=== PATIENT | female | born 1955 | race Caucasian/White ===

== ENCOUNTER → 2017-11-23 09:08 | Outpatient (CLI) | payer OTHER, SELFPAY ==
--- NOTE | 2017-11-23 09:18 | DI.REPORT_ITS ---
SYMPTOM/DIAGNOSIS: EVAL BILATERAL KNEES OA BILATERAL KNEES: Multiple views. In the left knee there is moderate narrowing of the medial femoral tibial joint space. Periarticular spurring is seen involving all 3 joint compartments particularly the patella femoral joint. There does appear to be marked narrowing of the patella femoral joint. In the right knee there is moderate narrowing of the medial femoral tibial joint space with flattening of the articular surfaces. Periarticular spurring is seen involving all three joint compartments particularly the patella femoral joint. There also appears to be marked narrowing of the patella femoral joint. Vascular clips are seen in the soft tissues in the medial right leg. IMPRESSION: Severe degenerative changes of the knees bilaterally.
== END ==
PROVIDERS: PCP Nurse Practitioner Adult Health; Visit Provider Student in an Organized Health Care Education/Training Program
DX: M25.561 Pain in right knee (principal); M17.0 Bilateral primary osteoarthritis of knee; M25.562 Pain in left knee
CPT/HCPCS: 73562

== ENCOUNTER 2017-12-03 15:30 | Outpatient (RCR) | payer OTHER, SELFPAY ==
--- NOTE | 2017-12-03 09:20 | IE_ITS ---
Date: 12/03/17 Referring: Gladis Diaz NP M.D. Diagnosis: (B) replacement program, OA P.T. Diagnosis: Difficulty walking, difficulty changing positions. SUBJECTIVE: History of Present Illness: Pt describes herself as an employee of [employer]. 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 She received a knee scope for repair and debridement around early 1999 , but her knee has been essentially painful ever since. She has been managed with injections, and she finally had a recent xray which showed pretty severe degenerative changes. Her (R) side is more limiting than her (L), but apparently on xray she review there is significant arthritis in both knees. She has been scheduled for a total knee replacement on January 29, and has been advised to start a pre operative strengthening program, as well mobility program to prepare for surgery. Pain Ratin/10 Prior Level of Function: Unrestricted Current Level of Function: Walking limitations, standing limitations. Previous Treatment: Nothing Social: She lives in [place], with her . Comorbidities: Hx of gastric bypass surgery and depression. Medications: Wellbutrin Quality of Life: __X__ Good Standardized Measures: Knee outcome survey for ADL with a score of 53%. OBJECTIVE: Posture: In standing pt demonstrates a slight inability to terminally extend the knee and a mild WBOS. Gait: Slightly antalgic with a mild reduction of stance time through the (R), although she has a significant limitation in knee flexion during the swing phase of gait. Palpation: Tender to palpation through the patella femoral joint lines, and tibial femoral joint lines (B). Popliteal fossa (B) is also tender with deep palpation. ROM: Measurements of the hip WFL and painfree. Measurements of the knee -7* of extension through the (R) and 105 * flexion of the (L) side, -5* of full extension and 105* of flexion. She is painful at end limits on both knees. Strength: Hip flexion 4+/5 (B) Quads 5/5 with mild pain upon resistance (B) Hamstring 5/5 Dorsiflexion 5/5 Plantar flexion 5/5 Pt unable to complete a 90* sit to stand. She completes a 60* sit to stand but also uses UE support. Neuro: Pt intact to light touch and sensation through LE dermatomes, motor control appears intact through associated myotomes and pt demonstrates appropriate proprioception and kinesthetic awareness. Special Tests: Lachmans varus, valgus, posterior draw testing negative for any ligamentous compromise. SLR with notable quad lag with about 10-15* of flexion through the SLR. Treatment: Tx today included the initial evaluation and assessment of functional abilities as well training in a formal exercise program. Pt demonstrated verbal acknowledgement and technique demonstration. IE: [id number] Direct treatment time: 50 minutes Total treatment time: 50 minutes ASSESSMENT: Patient is a 62-year-old female with a hx of good physical health, referred for PT services with the diagnosis of OA of (B) knees with pre operative focus. Patient presents with clinical signs and symptoms consistent with this dx, as demonstrated by the following impairment level findings: limited ROM in the knee both with extension and with flexion, mild pain upon resistance with quadricep function, difficulty with sit to stand and gait abnormalities. Impairments are contributing to the following functional limitations: Limited ambulation endurance and difficulty with long periods of standing. Patient is assessed as: __X__ Low 38268 ____ Moderate 54850 ____ High 70334 complexity, based on the following: History: High BMI, gastroc bypass and arthritis Examination: Limitations in knee ROM, limitations in strength with pain upon resistance, gait abnormalities Presentation: X Stable Decision-Making: X Low complexity ADL score on the knee outcome survey of 53%. __X__ Patient requires skilled PT intervention to remediate the above functional limitations to return to: __X__ Premorbid level of function Prognosis:__X__ Good as evidence suggests improvement of functional abilities with compliance to a detailed HEP tailored to her dx and following through with PT intervention. STG: __2__ weeks. 1. Pt will be (I) in HEP both verbally and ideal technique demonstration. LTG: __6__ weeks. 1. Pt will be able to walk up to 1/2 mile with minimal gait deviations. 2. Pt able to stand up to 30 minutes for better functional capacity through work activity. PLAN: Patient to be seen 1 x per week, for 6 weeks, adjusting frequency of visits per patient symptoms and response to treatment. Treatment to include: X Manual therapy - [id number]: Utilized for enhancing muscle extensibility and improving joint arthrokinematics. X Ultrasound/ Estim available for pain modulation as necessary. X Therapeutic exercise - [id number] tactile cues, verbal education and advanced movement correctives for establishing muscle symmetry and pre operative conditioning through the knees. Pt will be monitored for compliance to HEP and pt status will be updated accordingly. Plan may be modified as symptoms dictate. Thank you for this referral. Please do not hesitate to contact me with any questions or concerns regarding this patient's plan of care.
--- NOTE | 2017-12-12 11:17 | NT_ITS ---
12/10/17 Patient canc her appt due to work conflict. However, did not rescheduled. She feels she can do the exercises that were given to her and if she runs into a problem she will give us a call. BOBBY/micaela
--- NOTE | 2017-12-12 13:52 | NT_ITS ---
NON TREATMENT NOTE: 12/12/17 Patient called in to cancel today's appointment.
== END 2017-12-21 23:59 | disposition home or self-care (01) ==
LOC: PT 15:30
PROVIDERS: PCP Nurse Practitioner Adult Health; Referring Provider Nurse Practitioner Adult Health; Visit Provider Nurse Practitioner Adult Health
DX: M25.561 Pain in right knee (principal); M25.562 Pain in left knee
CPT/HCPCS: 97161

== ENCOUNTER → 2017-12-10 11:55 | Outpatient (REF) | payer OTHER, SELFPAY ==
--- NOTE | 2017-12-10 10:15 | PAPFT_PTH ---
PATIENT: Charli Anderson LOC: [facility] U#:[id number] AGE/SX: 69/F ROOM: RE12/10/[address]: Gladis Patricio APRN : 1955 BED: DIS: SPEC #: [id number] RECD: 12/10/17 12:41 STATUS: HANNAH REAlexander #: [id number] NICOLAS: 12/10/17 10:[address]: Gladis Patricio DEPT: [facility] Cytology RECD BY: Nae Whitney Tissues: 1 - CX/ENDOCX FOR PAP SMEARS Procedures: PAP THIN PREP/UVM Screening HPV DNA PROBE Comments: [id number]
== END ==
LOC: LBN 11:55
PROVIDERS: PCP Nurse Practitioner Adult Health; Visit Provider Nurse Practitioner Adult Health
DX: Z12.4 Encounter for screening for malignant neoplasm of cervix (principal); Z11.51 Encounter for screening for human papillomavirus (HPV)
CPT/HCPCS: 88142; 87624

== ENCOUNTER 2018-01-23 12:57 | Outpatient (CLI) | payer OTHER, SELFPAY ==
--- NOTE | 2018-01-23 13:49 | PDOC.CMPRO ---
- If Service Date Differs Date of service: 01/23/18 Time of Service: 13:49 Care Management Progress Note Request by DSU for CM to meet with Daniel prior to her bilateral total knee procedure on 01/29. 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 Daniel reports that she loves to ski at [place] and has not been able to in several years due to her chronic pain. She looks forward to getting back on the hill and increasing her activity. She has two steps up into her home. Daniel reports that she has a walker and is borrowing a shower chair. Patient discussed concerns regarding her toilet and CM and Daniel talked about raised toilet seats and acquiring one. CM addressed Daniel's concerns and questions regarding home PT following discharge. Daniel reports that Rupert is supportive and will be able to assist her in her recovery. CM will meet with Daniel following surgery and offer support to patient, family, and care team regarding discharge planning and disposition.
--- NOTE | 2018-01-23 14:10 | CMPROGNOTE_ITS ---
- If Service Date Differs Date of service: 01/23/18 Time of Service: 13:49 Care Management Progress Note Request by DSU for CM to meet with Daniel prior to her bilateral total knee procedure on 01/29. 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 Daniel reports that she loves to ski at [email or web address] and has not been able to in several years due to her chronic pain. She looks forward to getting back on the hill and increasing her activity. She has two steps up into her home. Daniel reports that she has a walker and is borrowing a shower chair. Patient discussed concerns regarding her toilet and CM and Daniel talked about raised toilet seats and acquiring one. CM addressed Daniel's concerns and questions regarding home PT following discharge. Daniel reports that Rupert is supportive and will be able to assist her in her recovery. CM will meet with Daniel following surgery and offer support to patient, family, and care team regarding discharge planning and disposition.
[2018-01-23 15:49] LABS: HCT 40.7 % (36.0-46.0); HGB 13.5 g/dL (12.0-15.5); Mean Corp. HGB Concentration 33.2 g/dL (32.0-36.0); Mean Corpuscular Hemoglobin 29.3 pg (27.0-33.0); Mean Corpuscular Volume 88.3 fL (80-95); Mean Platelet Volume 9.7 fL (8.0-11.0); Platelet Count 174 x1000/uL (130-400); RBC 4.61 m/cumm (4.00-5.20); RBC Distribution Width 13.5 % (11.7-14.6); White Blood Cell Count 7.24 k/cumm (4.4-10.8)
--- NOTE | 2018-01-23 16:10 | W.PREOPHP ---
Assessment and Plan (1) Primary osteoarthritis of both knees: Current visit: Yes Status: Chronic Plan: Bilateral total knee replacements. Details of surgery were discussed with patient as well as risks, and pertinent anatomy. All questions were answered. History of Present Illness Narrative: Charli is a 62-year-old female who was complaining of bilateral knee pain. She states his pain has been present for many years, she thinks since about 2010 or 2011. Most of the pain is on the medial aspect of her knees. She has trouble with prolonged weightbearing, ambulation, and going up and down stairs. She states downstairs and down an incline is worse than up. She has trouble with squatting and kneeling as well. She has had previous x-rays which do show significant arthritis primarily in the medial aspect of her knees. They also showed significant decrease in joint space in the medial compartment as well as bone spurring throughout. She has tried bouts of physical therapy and injections including Synvisc and steroid injections. She has had no relief from these conservative measures, in fact the knee pain continues to get worse. At this point Dr. Zafar suggests total knee replacements. After long discussion with Charli, she and Dr. Zafar decided to move forward with bilateral total knee replacements done in sequence on the same surgical day. Pertinent Surgical Information Patient denies history of hypertension, CVA, [place], angina, asthma, COPD, renal or liver disorders, hepatitis, bleeding disorders, diabetes, immune or thyroid disorders. No complications from anesthesia. Review of Systems Review of Systems All systems reviewed & are unremarkable except as noted in HPI and below Constitutional Denies fever(s) ENT Denies dizziness and Denies sore throat Cardiovascular Denies chest pain, Denies palpitations and Denies dyspnea Respiratory Denies dyspnea Gastrointestinal Denies abdominal pain, Denies melena, Denies hematochezia, Denies diarrhea, Denies nausea and Denies vomiting Genitourinary Denies hematuria and Denies dysuria Neurologic Denies dizziness Endocrine Denies palpitations PFSH Family History Mother Diabetes Hypertension Hyperlipidemia Coronary heart disease CVA (cerebral vascular accident) Breast cancer Father COPD (chronic obstructive pulmonary disease) Bladder cancer Coronary heart disease Hypertension Hyperlipidemia Sister Obesity Brother Obesity Medical History Anxiety and depression (Chronic) Social History adopted: No foster care: No household members: spouse number of children: 1 number of grandchildren: 0 current occupational status: employed current occupation: [employer] pets and animals: No Hx Recent Travel: No Smoking/Tobacco Use Status: Never alcohol intake: current alcohol intake frequency: holidays/special occasions only substance use type: does not use fay/quaker: Quaker seatbelt use: always drive intox or ride w/ intox local 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 working smoke detector in home: Yes fire extinguisher in home: Yes carbon monox detector in home: Yes firearms in home: Yes firearms unloaded and locked: No Surgical History S/P tubal ligation (Chronic) H/O vein stripping (Acute ~08/21/00) S/P tonsillectomy and adenoidectomy (Acute) H/O colonoscopy (Chronic 10/02/07) Status post gastroplasty (Chronic 12/19/13) Arthroplasty of knee (07/28/11) Cholecystectomy (03/07/13) Meds Home Medications Medication Instructions Recorded Confirmed Type aspirin [Aspir-81] 81 mg PO DAILY tab 09/09/12 01/23/18 History multivitamin [Daily Vitamin] 1 ea PO DAILY 12/24/13 01/23/18 History calcium citrate-vitamin D3 2 ea PO BID 12/30/13 01/23/18 History [Calcitrate-Vitamin D] Vitamin B 12 500 mg PO DAILY #1 02/09/14 01/23/18 History nystatin 1 aby TOPICAL BID PRN #60 g 07/10/16 01/23/18 History rrkanoff-agay-[id number]-C-katarzyna-bosw 2 ea PO DAILY 07/22/16 01/23/18 History [Osteo Bi-Flex Caplet] omega-3 fatty acids-fish oil [Fish 2,000 ea PO DAILY 10/30/16 01/23/18 History Oil 1,000 Mg Capsule] cholecalciferol (vitamin D3) 1,000 unit PO DAILY 06/25/17 01/23/18 History clotrimazole 1 aby TOPICAL BID #45 g 08/14/17 01/23/18 Rx naltrexone-bupropion [Contrave Er 1 ea PO as directed #1 tab-cap 12/10/17 01/23/18 Rx 8-90 Mg Tablet] Allergies Allergy/AdvReac Type Severity Reaction Status Date / Time codeine AdvReac Intermediate Hyper, Unverified 01/23/18 14:12 kept awake all night hydrocodone bitartrate AdvReac Intermediate Hyper,antsy Unverified 01/23/18 14:12 [From Vicodin] Exam HENME Head: normocephalic and atraumatic General nose exam: no nasal discharge Throat: uvula midline and no uvular edema Other: soft palate rises symmetrically, no erythema Eyes Conjunctivae: conjunctivae normal Sclera: sclerae normal Pupils: PERRL Resp Effort & Inspection: normal respiratory effort Auscultation: clear to auscultation bilaterally and no wheezes Cardio Rate: regular rate Rhythm: regular rhythm Heart Sounds: S1 normal, S2 normal and no murmurs Results Labs : 01/23/18 15:35 01/23/18 15:35 Laboratory Results - last 24 hr 01/23/18 15:35 WBC 7.24 RBC 4.61 Hgb 13.5 Hct 40.7 MCV 88.3 MCH 29.3 MCHC 33.2 RDW 13.5 Plt Count 174 MPV 9.7
--- NOTE | 2018-01-23 16:16 | HPE_ITS ---
Assessment and Plan (1) Primary osteoarthritis of both knees: Current visit: Yes Status: Chronic Plan: Bilateral total knee replacements. Details of surgery were discussed with patient as well as risks, and pertinent anatomy. All questions were answered. History of Present Illness Narrative: Charli is a 62-year-old female who was complaining of bilateral knee pain. She states his pain has been present for many years, she thinks since about 2010 or 2011. Most of the pain is on the medial aspect of her knees. She has trouble with prolonged weightbearing, ambulation, and going up and down stairs. She states downstairs and down an incline is worse than up. She has trouble with squatting and kneeling as well. She has had previous x-rays which do show significant arthritis primarily in the medial aspect of her knees. They also showed significant decrease in joint space in the medial compartment as well as bone spurring throughout. She has tried bouts of physical therapy and injections including Synvisc and steroid injections. She has had no relief from these conservative measures, in fact the knee pain continues to get worse. At this point Dr. Zafar suggests total knee replacements. After long discussion with Charli, she and Dr. Zafar decided to move forward with bilateral total knee replacements done in sequence on the same surgical day. Pertinent Surgical Information Patient denies history of hypertension, CVA, [place], angina, asthma, COPD, renal or liver disorders, hepatitis, bleeding disorders, diabetes, immune or thyroid disorders. No complications from anesthesia. Review of Systems Review of Systems All systems reviewed & are unremarkable except as noted in HPI and below Constitutional Denies fever(s) ENT Denies dizziness and Denies sore throat Cardiovascular Denies chest pain, Denies palpitations and Denies dyspnea Respiratory Denies dyspnea Gastrointestinal Denies abdominal pain, Denies melena, Denies hematochezia, Denies diarrhea, Denies nausea and Denies vomiting Genitourinary Denies hematuria and Denies dysuria Neurologic Denies dizziness Endocrine Denies palpitations PFSH Family History Mother Diabetes Hypertension Hyperlipidemia Coronary heart disease CVA (cerebral vascular accident) Breast cancer Father COPD (chronic obstructive pulmonary disease) Bladder cancer Coronary heart disease Hypertension Hyperlipidemia Sister Obesity Brother Obesity Medical History Anxiety and depression (Chronic) Social History adopted: No foster care: No household members: spouse number of children: 1 number of grandchildren: 0 current occupational status: employed current occupation: [employer] pets and animals: No Hx Recent Travel: No Smoking/Tobacco Use Status: Never alcohol intake: current alcohol intake frequency: holidays/special occasions only substance use type: does not use fay/latter-day: Roman Catholic seatbelt use: always drive intox or ride w/ intox chassis driver: No working smoke detector in home: Yes fire extinguisher in home: Yes carbon monox detector in home: Yes firearms in home: Yes firearms unloaded and locked: No Surgical History S/P tubal ligation (Chronic) H/O vein stripping (Acute ~08/21/00) S/P tonsillectomy and adenoidectomy (Acute) H/O colonoscopy (Chronic 10/02/07) Status post gastroplasty (Chronic 12/19/13) Arthroplasty of knee (07/28/11) Cholecystectomy (03/07/13) Meds Home Medications Medication Instructions Recorded Confirmed Type aspirin [Aspir-81] 81 mg PO DAILY tab 09/09/12 01/23/18 History multivitamin [Daily Vitamin] 1 ea PO DAILY 12/24/13 01/23/18 History calcium citrate-vitamin D3 2 ea PO BID 12/30/13 01/23/18 History [Calcitrate-Vitamin D] Vitamin B 12 500 mg PO DAILY #1 02/09/14 01/23/18 History nystatin 1 aby TOPICAL BID PRN #60 g 07/10/16 01/23/18 History pkcvolle-thwr-tbp6-C-katarzyna-bosw 2 ea PO DAILY 07/22/16 01/23/18 History [Osteo Bi-Flex Caplet] omega-3 fatty acids-fish oil [Fish 2,000 ea PO DAILY 10/30/16 01/23/18 History Oil 1,000 Mg Capsule] cholecalciferol (vitamin D3) 1,000 unit PO DAILY 06/25/17 01/23/18 History clotrimazole 1 aby TOPICAL BID #45 g 08/14/17 01/23/18 Rx naltrexone-bupropion [Contrave Er 1 ea PO as directed #1 tab-cap 12/10/17 Rx 8-90 Mg Tablet] Allergies Allergy/AdvReac Type Severity Reaction Status Date / Time codeine AdvReac Intermediate Hyper, Unverified 01/23/18 14:12 kept awake all night hydrocodone bitartrate AdvReac Intermediate Hyper,antsy Unverified 01/23/18 14: 12 [From Vicodin] Exam HENHI Head: normocephalic and atraumatic General nose exam: no nasal discharge Throat: uvula midline and no uvular edema Other: soft palate rises symmetrically, no erythema Eyes Conjunctivae: conjunctivae normal Sclera: sclerae normal Pupils: PERRL Resp Effort & Inspection: normal respiratory effort Auscultation: clear to auscultation bilaterally and no wheezes Cardio Rate: regular rate Rhythm: regular rhythm Heart Sounds: S1 normal, S2 normal and no murmurs Results Labs : 01/23/18 15:35 01/23/18 15:35 Laboratory Results - last 24 hr 01/23/18 15:35 WBC 7.24 RBC 4.61 Hgb 13.5 Hct 40.7 MCV 88.3 MCH 29.3 MCHC 33.2 RDW 13.5 Plt Count 174 MPV 9.7
[2018-01-23 16:18] LABS: BUN 23 mg/dL (7-18); CREATININE 0.77 mg/dL (0.55-1.02); Calcium 8.6 mg/dL (8.5-10.1); Chloride 104 mmol/L (98-107); Glucose 128 mg/dL (70-100); Potassium 4.4 mmol/L (3.5-5.1); Sodium 140 mmol/L (136-145)
== END 2018-01-23 13:17 ==
PROVIDERS: PCP Nurse Practitioner Adult Health; Visit Provider Student in an Organized Health Care Education/Training Program
DX: M17.0 Bilateral primary osteoarthritis of knee (principal); M25.561 Pain in right knee; M25.562 Pain in left knee; Z01.818 Encounter for other preprocedural examination
CPT/HCPCS: 36415; 80048; 85027; 86850; 86900; 86901; NC

== ENCOUNTER 2018-01-23 15:03 | Outpatient (CLI) | payer OTHER, SELFPAY ==
--- NOTE | 2018-01-23 14:48 | DI.RAD_ITS ---
SYMPTOMS/DIAGNOSIS: DJD PRIETO KNEES LEG LENGTH EXAMINATION: Moderately severe degenerative changes are seen in the knees bilaterally. The hips appear well maintained as do the ankles. The right lower extremity measures 92.9 cm. The left lower extremity measures 93.4 cm. Vascular clips are seen in the right lower extremity. IMPRESSION: Bilateral osteoarthritis of the knees.
== END 2018-01-23 15:23 ==
PROVIDERS: PCP Nurse Practitioner Adult Health; Visit Provider Physician Assistant
DX: M17.0 Bilateral primary osteoarthritis of knee (principal); M25.561 Pain in right knee; M25.562 Pain in left knee
CPT/HCPCS: 77073

== ENCOUNTER 2018-01-29 07:36 | Inpatient (IN) | payer OTHER, SELFPAY ==
[2018-01-29] VITALS (18 sets, daily range): BP systolic 74–124; BP diastolic 38–78; PULSE 66–92; RESP 14–18; TEMP 35–36.9; O2SAT 95–99
[2018-01-29] MEDS: Lactated Ringers 1,000 ML 80 ML IV ×3 (06:35→17:11)
[2018-01-29] MEDS: Celecoxib 200 MG CAP 400 MG PO (06:35)
[2018-01-29] MEDS: Gabapentin 300 MG CAP PO ×2 (06:36→21:08)
[2018-01-29] MEDS: oxyCODONE-CR 10 MG TABCR PO (06:36)
[2018-01-29] MEDS: Acetaminophen 500 MG TAB 1000 MG PO ×3 (06:36→21:07)
[2018-01-29] MEDS: Bupivacaine 0.25% Pres-Free 30 ML VIAL 20 ML IJ (07:20)
[2018-01-29] MEDS: Bupivacaine 0.25% Pres-Free 30 ML VIAL 50 ML IJ (11:41)
--- NOTE | 2018-01-29 12:01 | PDOC.CMIN ---
- If Service Date Differs Date of service: 01/29/18 Time of Service: 12:01 Care Management Initial Assess REASON FOR HOSPITALIZATION:: Bilateral knee DJD. PAST MEDICAL HISTORY/PAST SURGICAL HISTORY:: Anxiety, depression, intertrigo, vitamin D deficiency, peripheral venous insufficiency. Surgical hx: arthroscopy of knee (R), colonoscopy, vein stripping, tonsillectomy and adenoidectomy, tubal ligation, gastroplasty, bariatric surgery. PREVIOUS FUNCTIONAL STATUS/SOCIAL/FAMILY SUPPORTS:: Daniel resides in [place] with her , Rupert. There are two steps up to her home. 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 Daniel reports that Rupert is supportive and will assist her in her recovery. CURRENT FUNCTIONAL STATUS:: Daniel is lying in bed following surgery when CM visits this afternoon. She is engaged in conversation, makes good eye contact, and is talkative. Daniel reports that she is sore but not having any significant pain. She is receiving IV antibiotics and fluids. Her cochran catheter is in place and will likely be removed in the morning. ADVANCE DIRECTIVES:: None on file at [facility]. Has patient been provided with information about the portal?: Yes Did the patient sign up for the portal?: No CODE STATUS:: Full Code INSURANCE COVERAGE / FINANCIAL ISSUES:: [employer] CURRENT HOME/COMMUNITY SERVICES/EQUIPMENT:: No current home or community services. Has a FWW and shower chair. PRIMARY CARE PHYSICIAN:: Gladis Patricio. POTENTIAL DISCHARGE NEEDS:: Follow up appointment with PCP and PT/OT(?). PATIENT/FAMILY EDUCATION NEEDS:: Discharge education, any limitations, and follow up plan of care. Ask Me Three discussion. ANTICIPATED BARRIERS TO DISCHARGE:: No anticipated barriers to discharge. TRANSPORTATION:: Daniel will transport via private vehicle with her , Rupert. PLAN:: Charli will discharge home when medically ready per MD. Anticipate patient will discharge with PT/OT services and will follow up with MD. CM will continue to offer support to patient, family, and care team regarding discharge planning and disposition.
[2018-01-29] MEDS: ePHEDrine 50 MG/ML VIAL IVP (12:29)
--- NOTE | 2018-01-29 12:33 | INITIAL_ITS ---
- If Service Date Differs Date of service: 01/29/18 Time of Service: 12:01 Care Management Initial Assess REASON FOR HOSPITALIZATION:: Bilateral knee DJD. PAST MEDICAL HISTORY/PAST SURGICAL HISTORY:: Anxiety, depression, intertrigo, vitamin D deficiency, peripheral venous insufficiency. Surgical hx: arthroscopy of knee (R), colonoscopy, vein stripping, tonsillectomy and adenoidectomy, tubal ligation, gastroplasty, bariatric surgery. PREVIOUS FUNCTIONAL STATUS/SOCIAL/FAMILY SUPPORTS:: Daniel resides in [place] with her , Rupert. There are two steps up to her home. 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 Daniel reports that Rupert is supportive and will assist her in her recovery. CURRENT FUNCTIONAL STATUS:: Daniel is lying in bed following surgery when CM visits this afternoon. She is engaged in conversation, makes good eye contact, and is talkative. Daniel reports that she is sore but not having any significant pain. She is receiving IV antibiotics and fluids. Her cochran catheter is in place and will likely be removed in the morning. ADVANCE DIRECTIVES:: None on file at [employer]. Has patient been provided with information about the portal?: Yes Did the patient sign up for the portal?: No CODE STATUS:: Full Code INSURANCE COVERAGE / FINANCIAL ISSUES:: [employer] CURRENT HOME/COMMUNITY SERVICES/EQUIPMENT:: No current home or community services. Has a FWW and shower chair. PRIMARY CARE PHYSICIAN:: Gladis Patricio. POTENTIAL DISCHARGE NEEDS:: Follow up appointment with PCP and PT/OT(?). PATIENT/FAMILY EDUCATION NEEDS:: Discharge education, any limitations, and follow up plan of care. Ask Me Three discussion. ANTICIPATED BARRIERS TO DISCHARGE:: No anticipated barriers to discharge. TRANSPORTATION:: Daniel will transport via private vehicle with her , Rupert. PLAN:: Charli will discharge home when medically ready per MD. Anticipate patient will discharge with PT/OT services and will follow up with MD. CM will continue to offer support to patient, family, and care team regarding discharge planning and disposition.
--- NOTE | 2018-01-29 14:46 | PT.INIE ---
Date of service: 01/29/18 Time of Service: 14:35 PT Notes Inpatient Physical Therapy Evaluation Date: 01/29/18 Referring Doctor: Ab Zafar PT Orders: PT CONSULT: s/p b/l TKA Precautions: WBAT B LE's Patient Profile/Admitting Diagnosis: Pt is a 62yr old female s/p bilateral total knee arthroplasties by Dr. Zafar 01/29/18 PMHX: venous insufficiency, anxiety, obesity, bariatric surgery, depression, vitamin D deficiency, vein stripping, adenoidectomy, tubal ligation, gastroplasty, cholecystectomy, tonsillectomy, colonoscopy Social History/Home Situation: Lives with spouse in a home, 2 steps no railing to enter, one level inside. Baseline mobility independent gait with no device, independent with ADLS Equipment Owned/DME: borrwoing a FWW Subjective: Pt lying in bed, agreeable to PT consult. in room observing, RN in room monitoring vital signs and starting IV. Objective: General Observation: bilateral cryocuffs to knees, cochran catheter Mental Status: A& O x3 Pain: no c/o pain Bed Mobility/Transfers: Supine-sit: HOB 30 degrees [place] for LE's to edge of bed Sit-stand: minAx1 with FWW, bed elevated. Pt with difficulty getting to standing position due to quad weakness post op Stand-sit: SBA Sit-supine: HOB Flat [place] for LE's Gait: minAx1 with FWW, standing at bedside for 1min. Pt unable to progress gait or transfers to chair due to feelings of being lightheaded, BP 106/76. Pt transferred back to bed after standing. bilateral cryocuff's applied in bed. Therex: Initiated ankle pumps, quad sets, glute sets x 10 reps. Pt has issued home exercise program. Balance: Static Sitting: normal Dynamic Sitting: normal Static Standing: fair Dynamic Standing: poor Special Tests: Mobility Limitations Standardized Measure [facility] AM-PAC 6 clicks Basic Mobility Inpatient Short Form: Raw Score: 16 Standardized Score: 40.78 CMS Score: 54.16% CMS Modifier: CK Informed Consent/Education: Patient instructed in purpose of PT consult and plan of care. Assessment: Pt is a 62yr old female s/p bilateral total knee arthroplasties by Dr. Zafar 10/9/18 in setting of venous insufficiency, anxiety, obesity, bariatric surgery, depression, vitamin D deficiency. Patient presents with the following impairment level findings: weakness bilateral quads, decreased ability to lift legs into/out of bed, increased difficulty getting to standing position due to quad weakness requiring bed to be elevated and one person assist to get to standing, decreased static and dynamic standing balance requiring FWW for stability to prevent falls, decreased gait mobility due to weakness and post operative recovery. Pt will benefit from skilled therapy intervention for strengthening and progressive mobility training. Anticipate return to home setting once goals met. Impairments are contributing to the following functional limitations: AMPAC score CMS Score: 54.16% Patient is assessed as a Moderate [id number] complexity based on the following: History: see above Examination: see above Presentation: evolving Decision Making: AMPAC score CMS Score: 54.16% Goals: Goals X1 week 1. Supine-Sit: independent 2. Sit-Supine independent 3. Sit-Stand supervision with FWW 4. Stand-Sit supervision 5. Bed-Chair SBA with FWW 6. Chair-Bed SBA with FWW 7. Gait SBA with FWW 70ftx2 WBAT B LE 8. Stairs: up/down 2 steps with axillary crutches, WBAT B LE 9. Independent with home exercise program for TKA Plan of Care/Treatment Plan: 1-2x/day, 7 days/week x 1 week. Plan of care has been reviewed with the RN LVN providing the service under Physical Therapy direction. Initiate Physical Therapy intervention for strengthening, bed mobility, transfers, gait, stairs, balance training, use of assistive device. DISCHARGE RECOMMENDATIONS: Home, plans to borrow FWW TREATMENT CODE/TIME: 24 IE 1435 G Codes in the area mobility of walking and moving around: current status [id number] CK; projected status GP [id number]- CK Discharge status (if discharging) GP [id number] CK based on AMPAC score CMS Score: 54.16% Marlene Monteiro PT
--- NOTE | 2018-01-29 15:02 | IN_ITS ---
Date of service: 01/29/18 Time of Service: 14:35 PT Notes Inpatient Physical Therapy Evaluation Date: 01/29/18 Referring Doctor: Ab Zafar PT Orders: PT CONSULT: s/p b/l TKA Precautions: WBAT B LE's Patient Profile/Admitting Diagnosis: Pt is a 62yr old female s/p bilateral total knee arthroplasties by Dr. Zafar 01/29/18 PMHX: venous insufficiency, anxiety, obesity, bariatric surgery, depression, vitamin D deficiency, vein stripping, adenoidectomy, tubal ligation, gastroplasty, cholecystectomy, tonsillectomy, colonoscopy Social History/Home Situation: Lives with spouse in a home, 2 steps no railing to enter, one level inside. Baseline mobility independent gait with no device, independent with ADLS Equipment Owned/DME: borrwoing a FWW Subjective: Pt lying in bed, agreeable to PT consult. in room observing , RN in room monitoring vital signs and starting IV. Objective: General Observation: bilateral cryocuffs to knees, cochran catheter Mental Status: A& O x3 Pain: no c/o pain Bed Mobility/Transfers: Supine-sit: HOB 30 degrees [place] for LE's to edge of bed Sit-stand: minAx1 with FWW, bed elevated. Pt with difficulty getting to standing position due to quad weakness post op Stand-sit: SBA Sit-supine: HOB Flat [place] for LE's Gait: minAx1 with FWW, standing at bedside for 1min. Pt unable to progress gait or transfers to chair due to feelings of being lightheaded, BP 106/76. Pt transferred back to bed after standing. bilateral cryocuff's applied in bed. Therex: Initiated ankle pumps, quad sets, glute sets x 10 reps. Pt has issued home exercise program. Balance: Static Sitting: normal Dynamic Sitting: normal Static Standing: fair Dynamic Standing: poor Special Tests: Mobility Limitations Standardized Measure [facility] AM-PAC 6 clicks Basic Mobility Inpatient Short Form: Raw Score: 16 Standardized Score: 40.78 CMS Score: 54.16% CMS Modifier: CK Informed Consent/Education: Patient instructed in purpose of PT consult and plan of care. Assessment: Pt is a 62yr old female s/p bilateral total knee arthroplasties by Dr. Zafar 10/9/18 in setting of venous insufficiency, anxiety, obesity, bariatric surgery, depression, vitamin D deficiency. Patient presents with the following impairment level findings: weakness bilateral quads, decreased ability to lift legs into/out of bed, increased difficulty getting to standing position due to quad weakness requiring bed to be elevated and one person assist to get to standing, decreased static and dynamic standing balance requiring FWW for stability to prevent falls, decreased gait mobility due to weakness and post operative recovery. Pt will benefit from skilled therapy intervention for strengthening and progressive mobility training. Anticipate return to home setting once goals met. Impairments are contributing to the following functional limitations: AMPAC score CMS Score: 54.16% Patient is assessed as a Moderate [id number] complexity based on the following: History: see above Examination: see above Presentation: evolving Decision Making: AMPAC score CMS Score: 54.16% Goals: Goals X1 week 1. Supine-Sit: independent 2. Sit-Supine independent 3. Sit-Stand supervision with FWW 4. Stand-Sit supervision 5. Bed-Chair SBA with FWW 6. Chair-Bed SBA with FWW 7. Gait SBA with FWW 70ftx2 WBAT B LE 8. Stairs: up/down 2 steps with axillary crutches, WBAT B LE 9. Independent with home exercise program for TKA Plan of Care/Treatment Plan: 1-2x/day, 7 days/week x 1 week. Plan of care has been reviewed with the CASING MIXER providing the service under Physical Therapy direction. Initiate Physical Therapy intervention for strengthening, bed mobility, transfers, gait, stairs, balance training, use of assistive device. DISCHARGE RECOMMENDATIONS: Home, plans to borrow FWW TREATMENT CODE/TIME: 24 IE 1435 G Codes in the area mobility of walking and moving around: current status [id number] CK; projected status GP G8979- CK Discharge status (if discharging) GP [id number] CK based on AMPAC score CMS Score: 54.16% Marlene Monteiro PT
[2018-01-29] MEDS: Lactated Ringers 1,000 ML 1000 ML IV (15:23)
--- NOTE | 2018-01-29 16:25 | NUR.NOTE ---
01/29/18 1342 Pt admitted to room 205 MS from PACU via stretcher. PT alert and oriented x 3. HR regular, LSCTA, POsitive bs x 4. Positive sensation and movement in bilat feet, cap refil less than 3 sec, pale, cool bilat toes. dressing bilat knees CDI. pt rates pain at zero.
[2018-01-29] MEDS: oxyCODONE 5 MG TAB PO ×3 (17:14→23:53)
[2018-01-29] MEDS: Celecoxib 200 MG CAP PO (21:06)
[2018-01-29] MEDS: buPROPion-CR 150 MG TABCR PO (21:07)
[2018-01-30] VITALS (11 sets, daily range): BP systolic 88–127; BP diastolic 56–74; PULSE 70–98; RESP 16–18; TEMP 36.2–37; O2SAT 91–98
[2018-01-30] MEDS: oxyCODONE 5 MG TAB PO ×6 (03:22→21:15)
[2018-01-30] MEDS: Lactated Ringers 1,000 ML 80 ML IV (05:19)
--- NOTE | 2018-01-30 06:58 | W.PM.OP ---
Date of service: 01/29/18 Time of Service: 12:29 Operative Note DATE OF PROCEDURE: 01/29/18 PRE-OP DIAGNOSIS: Bilateral Knee DJD POST-OP DIAGNOSIS: same PROCEDURE: Bilateral Total Knee Replacement SURGEON: Ab Zafar [employer]: Joana Borrero ANESTHESIA: GETA and spinal ESTIMATED BLOOD LOSS: 500 PATHOLOGY: none sent TOURNIQUET TIME: 51 COMPLICATIONS: None Patient was transported to: PACU Patient's condition: stable Implants: LEFT 1. Depuy Attune Posterior Stabilized Femoral Component, Size 6 2. Depuy Attune Fixed Platform Tibial Component, Size 5 3. Depuy Attune 6 x 7 mm fixed, Stabilized Poly 4. Depuy Attune Patellar Component, Size 35 mm RIGHT 1. Depuy Attune Posterior Stabilized Femoral Component, Size 6 2. Depuy Attune Fixed Platform Tibial Component, Size 5 3. Depuy Attune 6 x 8 mm fixed, Stabilized Poly 4. Depuy Attune Patellar Component, Size 35 mm Indications: I have seen Charli in clinic for symptoms of bilateral knee arthritis, confirmed with radiographic findings. Charli has exhausted nonoperative methods and was having significant limitations in daily function and desired better function and less pain. I discussed the technical details of a knee replacement. I explained the risks of the procedure to include, but not limited to, bleeding, infection, pain, stiffness, fracture, damage to nerves and vessels, damage to muscles and tendons, loosening, need for repeat procedure, blood clot and cardiopulmonary demise. Despite these risks, Charli elected to proceed. Findings: There was significant signs of arthritis throughout the knees. All 3 compartments of both knees were involved. There were large osteophytes present. Her anatomy was somewhat interesting with the tibial tubercles quite lateralized compared to the medial tibial plateau. On the right knee, there is attenuation of the MCL but was intact. Procedure Description: Charli was greeted in the preoperative holding area where the correct side was identified and marked. The consent was reviewed with the patient and signed. The history and physical was updated. All questions were answered. Preoperative mediacations were administered: Acetaminophen 1000mg, Celebrex 400mg, Gabapentin 300mg, and Oxycontin 10mg. An adductor canal and iPAQ block was then administered by the anesthesia team in the PACU for both knees. Charli was taken back to the operating room. A spinal anesthestic was attempted. However, it was unsuccessful and therefore a general anesthetic was administered. The patient was placed into the supine position on the operating room table. A nonsterile tourniquet was placed high onto both legs but only used for cementing. Posts were placed for positioning during the procedure. All bony prominences were well padded. Prophylactic antibiotics in the form of cefazolin were administered. 1g of Tranxemic Acid was given intravenously within 30 minutes of incision. Both legs were then prepped with Chloraprep and draped in a standard fashion with impervious stockinette and extremity drape with Iodine impregnated skin protection. A timeout to confirm correct identity, side and site, procedure, allergies, anesthesia, and medical concerns was performed. We started with the left knee. With the knee in some flexion, a midline incision was made overlying the knee. Full thickness skin flaps were raised once the extensor mechanism was encountered. These were raised medially and laterally. Any bleeding was controlled with electrocautery. Once the extensor mechanism was fully exposed, a medial parapatellar arthrotomy was performed in a flexed position. All bleeding from the arthrotomy and the geniculate arteries was coagulated. A medial subperiosteal peel was performed with electrocautery to the midcoronal plane. The fat pad was removed while keeping the patellar tendon protected. The anterior distal femur synovium was removed for later visualization. The ACL and PCL were resected and the anterior horn of the lateral meniscus was transected. The knee was then flexed with the patella everted. Large osteophytes from the tibia were removed. Large osteophytes from the femur were removed. The tibial tubercle seem quite lateral in relationship to the tibial plateau. Using a step drill, and based on preoperative templating, the femoral canal was entered. This was done with a step drill without any difficulty. The intramedullary distal femoral cut guide was inserted, set to a 5 degree valgus cut and 10mm cut thickness. The distal femoral cut guide was then held in position and pinned. With the soft tissues protected, the distal cut was performed. This was passed over a few times to ensure a planar cut. I then turned attention to the tibia. The extramedullary guide was placed onto the leg. The distal aspect was slid medial to adjust for position of center of ankle and stay in line with shaft of the tibia. Approximately 3-5 degrees of posterior slope was kept in the proximal cutting guide. The center of the guide was aligned with the PCL. The stylus was used to assess cut thickness. The medial side, most involved side, was set for a 4mm cut. This was then held in position and pinned into place with 2 additional pins and a cross pin for stability. The medial and lateral collateral ligaments were protected and the cut was performed. With this completed, it was assessed and noted to be of appropriate dimensions. The guide was removed. A spacer block was inserted and the knee was brought into extension. The 6mm spacer block provided full extension, without hyperextension and with stability of both the medial and lateral collateral ligaments was assessed. The pins from the femur and the tibia were then removed. The distal femur was then sized. The anterior stylus was placed onto the lateral ridge of the anterior femur. This indicated a size 6 femur. The external rotation of the guide was adjusted to 5 degrees to match the epicondylar axis, perpendicular to Amite?s line. The 4-in-1 cutting guide was the placed. The posterior medial femur cut was evaluated and appeared of good thickness. The spacer block was inserted underneath the cutting guide and stability was confirmed in 90 degrees of flexion. An mary wing was used to confirm appropriate position of the anterior cut to avoid notching. This cutting guide was ensured to be flush on the cut surface and then pinned into place with headed pins. While protecting the soft tissues, quad tendon, and collateral ligaments, the anterior and posterior cuts were performed with a saw. The central two pins were removed and the posterior and anterior chamfers were cut next. The notch-cutting guide was placed. This was pinned to lateralize the femoral component as much as possible while keeping it flush on the cut surface. This was then pinned into position. A reciprocating saw was used to make the notch cut. A rasp smoothed the cut surfaces. A trial posterior stabilized femoral component was then inserted, impacted down to the cut surfaces, and the lug holes were drilled. A provisional trial tibial component was placed and the knee was brought through range of motion. The polyethylene was trialed until there was good flexion and extension with excellent stability to the medial and lateral collaterals. The patella was tracking without thumbs. The tibial cut surface was fully exposed. The medial and lateral menisci were removed. The tibia was then sized as a 5. The tibia had been previously marked during trialing to correspond to the center of the tibial component to help with rotation. The trial was aligned to this joana, approximately rotated to the medial 1/3rd of the tibial tubercle. The trial was pinned into place. The tibia was prepared with a reamer and a keel punch. The knee was then brought into extension and the patella was measured as 26 mm. Using the patellar clamp and cut guide, this was resected to a flat surface with at least 13mm of thickness remaining. The size 35 mm patella fit the best. This was oriented and then clamped into position. The lugs were drilled. The trial components were removed. The final components, except for the polyethylene were opened on the back table. The posterior capsule and other capsular tissues were then injected with 25 cc of 0.25% bupivacaine. The tourniquet was then inflated to 275mmHg. The knee was thoroughly irrigated with a pulse lavage and dried. On the back table, with the implants opened, the cement was mixed. 2 batches of antibiotic laden cement were prepared with vacuum assistance. After the cement was ready a small amount was placed on to the back side of the tibial component at the keel. A small amount was placed onto the posterior flange of the femur. Cement was manual pressurized and impregnated into the cut surface of the tibia. The tibial component was then inserted into the cut surface and impacted into position. Excess cement was removed and the component was reimpacted. Again, excess cement was removed and our attention was then turned to the femur. The femoral cut surface was once again dried and cement was manually impacted into the cut surface. The femoral component was lined with the lug holes and impacted. Excess cement was removed. It was ensured to be down against the cut surface. The trial polyethylene was then inserted and the leg was brought out into full extension for the duration of the cement curing process, approximately 15min. Cement was lastly manually impacted into the cut surface of the patella and the patellar button was clamped into position and held. During this process attention was turned to the gutters of the knee and for all interfaces for any excess cement. After the cement had finally cured, approximately 15min, the clamp was removed from the patella and the knee was taken through range of motion. A size 7 mm polyethylene component provided the best range of motion and stability with less than 2mm gapping with medial and lateral stress and full extension without significant hyperextension. The patella was tracking with a no-thumbs technique. The trial poly was removed and once again the knee was checked for any loose, excess, or errant cement. The poly component was then inserted and impacted into position after cleaning and drying the tibial tray. The capsule was then reapproximated with a No. 1 Vicryl at multiple locations. The capsule was finally closed with a No. 2 Stratafix, barbed suture. The tourniquet was then released and the arthrotomy appeared watertight without significant bleeding. The second dosing of 1g TXA was started. Deep tissues were then reapproximated with 0 Vicryl and 2-0 Vicryl. The skin was closed with a running 3-0 Monocryl in a subcuticular fashion. This was reinforced with skin glue. We then proceeded with the right knee replacement. With the knee in some flexion, a midline incision was made overlying the knee. Full thickness skin flaps were raised once the extensor mechanism was encountered. These were raised medially and laterally. Any bleeding was controlled with electrocautery. Once the extensor mechanism was fully exposed, a medial parapatellar arthrotomy was performed in a flexed position. All bleeding from the arthrotomy and the geniculate arteries was coagulated. A medial subperiosteal peel was performed with electrocautery to the midcoronal plane. The fat pad was removed while keeping the patellar tendon protected. The anterior distal femur synovium was removed for later visualization. The ACL and PCL were resected and the anterior horn of the lateral meniscus was transected. The knee was then flexed with the patella everted. Large osteophytes from the tibia were removed. Large osteophytes from the femur were removed. The tibial tubercle seem quite lateral in relationship to the tibial plateau. Using a step drill, and based on preoperative templating, the femoral canal was entered. This was done with a step drill without any difficulty. The intramedullary distal femoral cut guide was inserted, set to a 5 degree valgus cut and 10mm cut thickness. The distal femoral cut guide was then held in position and pinned. With the soft tissues protected, the distal cut was performed. This was passed over a few times to ensure a planar cut. I then turned attention to the tibia. The extramedullary guide was placed onto the leg. The distal aspect was slid medial to adjust for position of center of ankle and stay in line with shaft of the tibia. Approximately 3-5 degrees of posterior slope was kept in the proximal cutting guide. The center of the guide was aligned with the PCL. The stylus was used to assess cut thickness. The medial side, most involved side, was set for a 4mm cut. This was then held in position and pinned into place with 2 additional pins and a cross pin for stability. The medial and lateral collateral ligaments were protected and the cut was performed. With this completed, it was assessed and noted to be of appropriate dimensions. The guide was removed. A spacer block was inserted and the knee was brought into extension. The 6mm spacer block provided full extension, without hyperextension and with stability of both the medial and lateral collateral ligaments was assessed. The pins from the femur and the tibia were then removed. The distal femur was then sized. The anterior stylus was placed onto the lateral ridge of the anterior femur. This indicated a size 6 femur. The external rotation of the guide was adjusted to 3 degrees to match the epicondylar axis, perpendicular to Mehdi?s line. The 4-in-1 cutting guide was the placed. The posterior medial femur cut was evaluated and appeared of good thickness. The spacer block was inserted underneath the cutting guide and stability was confirmed in 90 degrees of flexion. An mary wing was used to confirm appropriate position of the anterior cut to avoid notching. This cutting guide was ensured to be flush on the cut surface and then pinned into place with headed pins. While protecting the soft tissues, quad tendon, and collateral ligaments, the anterior and posterior cuts were performed with a saw. The central two pins were removed and the posterior and anterior chamfers were cut next. The notch-cutting guide was placed. This was pinned to lateralize the femoral component as much as possible while keeping it flush on the cut surface. This was then pinned into position. A reciprocating saw was used to make the notch cut. A rasp smoothed the cut surfaces. A trial posterior stabilized femoral component was then inserted, impacted down to the cut surfaces, and the lug holes were drilled. A provisional trial tibial component was placed and the knee was brought through range of motion. The polyethylene was trialed until there was good flexion and extension with excellent stability to the medial and lateral collaterals. The patella was tracking without thumbs. The tibial cut surface was fully exposed. The medial and lateral menisci were removed. The tibia was then sized as a 5. The tibia had been previously marked during trialing to correspond to the center of the tibial component to help with rotation. The trial was aligned to this joana, approximately rotated to the medial 1/3rd of the tibial tubercle. The trial was pinned into place. The tibia was prepared with a reamer and a keel punch. The knee was then brought into extension and the patella was measured as 25 mm. Using the patellar clamp and cut guide, this was resected to a flat surface with at least 13mm of thickness remaining. The size 35 mm patella fit the best. This was oriented and then clamped into position. The lugs were drilled. The trial components were removed. The collateral ligaments were checked as a standard practice and is noted that the MCL was attenuated. It was still intact but was not cordlike but stranded. He was tested in multiple positions and did not appear to be cut nor avulsed off of the tibia. The final components, except for the polyethylene were opened on the back table. Approximately 25 cc of 0.5% bupivacaine was injected into the posterior capsule and surrounding capsular tissues. The tourniquet was then inflated to 275mmHg. The knee was thoroughly irrigated with a pulse lavage and dried. On the back table, with the implants opened, the cement was mixed. 2 batches of antibiotic laden cement were prepared with vacuum assistance. After the cement was ready a small amount was placed on to the back side of the tibial component at the keel. A small amount was placed onto the posterior flange of the femur. Cement was manual pressurized and impregnated into the cut surface of the tibia. The tibial component was then inserted into the cut surface and impacted into position. Excess cement was removed and the component was reimpacted. Again, excess cement was removed and our attention was then turned to the femur. The femoral cut surface was once again dried and cement was manually impacted into the cut surface. The femoral component was lined with the lug holes and impacted. Excess cement was removed. It was ensured to be down against the cut surface. The trial polyethylene was then inserted and the leg was brought out into full extension for the duration of the cement curing process, approximately 15min. Cement was lastly manually impacted into the cut surface of the patella and the patellar button was clamped into position and held. During this process attention was turned to the gutters of the knee and for all interfaces for any excess cement. After the cement had finally cured, approximately 15min, the clamp was removed from the patella and the knee was taken through range of motion. A size 8 mm polyethylene component provided the best range of motion and stability with less than 2mm gapping with medial and lateral stress and full extension without significant hyperextension. The patella was tracking with a no-thumbs technique. The trial poly was removed and once again the knee was checked for any loose, excess, or errant cement. The poly component was then inserted and impacted into position after cleaning and drying the tibial tray. The capsule was then reapproximated with a No. 1 Vicryl at multiple locations. The capsule was finally closed with a No. 2 Stratafix, barbed suture. The tourniquet was then released and the arthrotomy appeared watertight without significant bleeding. Deep tissues were then reapproximated with 0 Vicryl and 2-0 Vicryl. The skin was closed with a running 3-0 Monocryl in a subcuticular fashion. This was reinforced with skin glue. A Mepilex silver dressing was applied along with a [id number] BERTHA wrap. A CryoCuff was applied. Charli was transferred to the hospital bed without difficulty an suffering no apparent complication. Charli has a good prognosis. Physical therapy will start today and without restrictions, weight-bearing as tolerated. Xarelto 10mg will be used for DVT prophylaxis.
[2018-01-30 07:28] LABS: HCT 29.9 % (36.0-46.0); HGB 9.9 g/dL (12.0-15.5); Mean Corp. HGB Concentration 33.1 g/dL (32.0-36.0); Mean Corpuscular Hemoglobin 29.5 pg (27.0-33.0); Mean Platelet Volume 9.9 fL (8.0-11.0); Platelet Count 133 x1000/uL (130-400); RBC 3.36 m/cumm (4.00-5.20); RBC Distribution Width 13.2 % (11.7-14.6); White Blood Cell Count 8.39 k/cumm (4.4-10.8)
[2018-01-30 07:34] LABS: Anion Gap 4.1 mmol/L (3-11); BUN 10 mg/dL (7-18); CO2 30.9 mmol/L (21.0-32.0); CREATININE 0.63 mg/dL (0.55-1.02); Calcium 8.4 mg/dL (8.5-10.1); Chloride 106 mmol/L (98-107); Glucose 117 mg/dL (70-100); Potassium 4.2 mmol/L (3.5-5.1); Sodium 141 mmol/L (136-145)
[2018-01-30] MEDS: Lactated Ringers 1,000 ML 1000 ML IV (08:11)
[2018-01-30] MEDS: Acetaminophen 500 MG TAB 1000 MG PO ×3 (09:04→21:14)
[2018-01-30] MEDS: Rivaroxaban 10 MG TABLET PO (09:05)
[2018-01-30] MEDS: Omega-3 Fatty Acids 1000 MG CAP 2000 MG PO (09:05)
[2018-01-30] MEDS: Celecoxib 200 MG CAP PO ×2 (09:06→21:11)
[2018-01-30] MEDS: Cyanocobalamin 500 MCG TAB PO (09:06)
[2018-01-30] MEDS: buPROPion-CR 150 MG TABCR PO ×2 (09:06→21:11)
[2018-01-30] MEDS: Multivitamin TAB 1 TAB PO (09:07)
[2018-01-30] MEDS: Pantoprazole 40 MG TABCR PO (09:07)
[2018-01-30] MEDS: Dexamethasone 4 MG TAB PO (09:07)
--- NOTE | 2018-01-30 09:16 | PT.INTREAT ---
Date of service: 01/30/18 Time of Service: 07:30 PT Notes Inpatient Physical Therapy Treatment Note Date: 01/30/18 PRECAUTIONS: Fall precautions, WBAT B LE's SUBJECTIVE: Pt lying in bed, agreeable to therapy session and mobilizing to chair for breakfast. Reports her pain is minimal and she has been using the cryocuffs all night. OBJECTIVE: General observation: R UE IV, bilateral cryocuffs PAIN: 3/10 bilateral knees BED MOBILITY/TRANSFERS Supine-sit: HOB 30 degrees, SBA Sit-stand: unable due to lightheadedness Bed-Chair: unable due to lightheadedness Sit-supine: HOB flat, SBA GAIT: unable to due to complaints of light headness/dizziness. THEREX: bilateral ankle pumps, quad sets and glute sets x 20 reps ASSESSMENT: Pt only able to sit at edge of bed today and return to bed, unable to perform standing, transfers to chair or gait due to hypotension (see nursing notes for BP) and reports of sweating and dizziness. RN notified and contacting MD. PLAN: Progress strengthening Progress transfers Progress gait TREATMENT CODE/TIME: 15min TAx1 7:30 Marlene Monteiro PT
--- NOTE | 2018-01-30 09:45 | PDOC.CMPRO ---
- If Service Date Differs Date of service: 01/30/18 Time of Service: 09:45 Care Management Progress Note S/O: Charli is lying in bed eating breakfast when CM visits this morning. Patient is 1 day post-op for bilateral knee DJD. Charli's sister is visiting as well. Patient is engaged in conversation, makes good eye contact, and is talkative. She denies pain at this time. Per nursing report, Charli became diaphoretic, hypotensive and dizzy when attempting to get out of bed. Patient currently receiving IV fluids and I L LR bolus. Charli continues to receive IV antibiotics and IV and PO pain medications. Patient's catheter remains in place at this time. Charli's symptoms have subsided and her BP is WNL. A: 62 year old female admitted following bilateral knee DJD. P: Charli will discharge home when medically ready per MD. Anticipate patient will discharge with home PT/OT (?) and follow up with MD. Charli will transport via private vehicle with her , Rupert. will continue to offer support to patient, family and care team regarding discharge planning and disposition.
[2018-01-30 10:05] LABS: Troponin I < 0.02 ng/mL (0.00-0.06)
--- NOTE | 2018-01-30 13:06 | W.PM.PROGNOT ---
Assessment and Plan (1) Arthroplasty of knee: Charli is a 62-year-old status post bilateral knee arthroplasty, postop day #1. Unfortunately, she had an episode of hypotension this morning. She did have some become any chest pain prior to this event and so a troponin and EKG was performed. These were both negative. Her labs are encouraging. It is likely that she just has a volume related hypotension. This is probably leading to the dizziness. At this point I will plan to recheck hemoglobin. I will asked for the assistance of Dr. Gallardo. It is best just to get this some time at this point. She has no increased work of breathing to suggest a DVT or blood clot. Rivaroxaban was started today. Continue with pain treatment. Continue PT this afternoon. Continue Rodrigues catheter for output management. Subjective Interval history since last seen: Charli reports having some increased pain. She has been receiving pain medications which has helped keep the pain at bay. She is able to ambulate yesterday with minimal discomfort although she was limited in her distance. She has had good urine output. She denies fevers or chills. She has had no chest pain or shortness of breath until an episode this morning. She was going to stand with physical therapy. She denied having significant increase in pain but all of a sudden felt very dizzy and somewhat lightheaded. Her blood pressures checked at that time where she was noted to have some hypotension. She does report about an hour prior to this having some chest discomfort but had no currently. She has not on interview today at this time. EKG was performed this morning which was negative. Troponins were drawn and these were negative as well. Her labs were also drawn this morning which revealed no major abnormalities and a hemoglobin of 9.9. She currently reports discomfort of the knees which has been treated with pain medications. She also finds that if she moves quickly or tries to sit up she has some dizziness. She denies headache. She denies any neck pain but she does have some pain in the low back where the spinal was attempted. She denies numbness or tingling. She denies nausea or vomiting Exam Narrative Exam Narrative: Evaluation of bilateral lower extremities reveals intact sensation to the deep and superficial peroneal nerve and tibial nerves. Both ankles have active dorsiflexion and plantar flexion as well as active extension and flexion of the great toes. She is able straight leg raise both legs. Both are wrapped in dressings which are clean, dry, and intact. She does look to be feeling uncomfortable. She is not diaphoretic. She has good color. She has no increased work of breathing. She is breathing on room air. Objective Objective Clinical Data: Abnormal lab results 01/30/18 01/30/18 Range/Units 07:10 07:10 RBC 3.36 L (4.00-5.20) m/cumm Hgb 9.9 L (12.0-15.5) g/dL Hct 29.9 L (36.0-46.0) % Glucose 117 H (70-100) mg/dL Calcium 8.4 L (8.5-10.1) mg/dL Vital Signs Temperature 36.7 C 01/30/18 03:34 Temperature Source Tympanic 01/30/18 03:34 Pulse 94 H 01/30/18 12:44 Pulse Rhythm Regular 01/30/18 07:50 Respiratory Rate 18 01/30/18 09:42 Respiratory Effort 01/30/18 07:50 Respiratory Depth Normal 01/30/18 07:50 Respiratory Pattern Normal 01/30/18 07:50 Blood Pressure 88/57 L 01/30/18 12:44 Pulse Oximetry 96 01/30/18 03:34 Respiratory End-tidal CO2 36 01/29/18 13:30 Oxygen Delivery Method Room Air 01/30/18 03:34 Oxygen Flow Rate 0 01/30/18 03:34 Pain Level 4 01/30/18 09:47 Comment 01/30/18 12:44 Intake & Output 01/29/18 01/30/18 01/30/18 23:59 11:59 23:59 Intake Total 1952.000 / 8288.679 6310.333 / 1881.333 360 / 360 Output Total 2500 / 2500 1075 / 1075 1800 / 1800 Balance -548.000 / -548.000 806.333 / 806.333 -1440 / -1440 Intake: IV 1712.000 / 4321.780 4454.333 / 1881.333 Oral 240 / 240 360 / 360 Output: Urine 2500 / 2500 1075 / 1075 1800 / 1800 Other: Urine Color Pale Yellow Pale Yellow Yellow Urine Appearance Clear Clear Emesis Description None Laboratory Results WBC 8.39 k/cumm (4.4-10.8) 01/30/18 07:10 RBC 3.36 m/cumm (4.00-5.20) L 01/30/18 07:10 Hgb 9.9 g/dL (12.0-15.5) L 01/30/18 07:10 Hct 29.9 % (36.0-46.0) L 01/30/18 07:10 MCV 89.0 fL (80-95) 01/30/18 07:10 MCH 29.5 pg (27.0-33.0) 01/30/18 07:10 MCHC 33.1 g/dL (32.0-36.0) 01/30/18 07:10 RDW 13.2 % (11.7-14.6) 01/30/18 07:10 Plt Count 133 x1000/uL (130-400) 01/30/18 07:10 MPV 9.9 fL (8.0-11.0) 01/30/18 07:10 Sodium 141 mmol/L (136-145) 01/30/18 07:10 Potassium 4.2 mmol/L (3.5-5.1) 01/30/18 07:10 Chloride 106 mmol/L (98-107) 01/30/18 07:10 Carbon Dioxide 30.9 mmol/L (21.0-32.0) 01/30/18 07:10 Anion Gap 4.1 mmol/L (3-11) 01/30/18 07:10 BUN 10 mg/dL (7-18) 01/30/18 07:10 Creatinine 0.63 mg/dL (0.55-1.02) 01/30/18 07:10 Estimated GFR/1.73 m2 >= 60.00 (mL/min/1.73m2) 01/30/18 07:10 Glucose 117 mg/dL (70-100) H 01/30/18 07:10 Calcium 8.4 mg/dL (8.5-10.1) L 01/30/18 07:10 Troponin I < 0.02 ng/mL (0.00-0.06) 01/30/18 07:10
--- NOTE | 2018-01-30 13:15 | PHARADMIT ---
Addendum entered by Hoang Mansfield III 02/01/18 13:06: Pharmacy Note Subjective Bilateral Knee DJD, post-op day #3. Had blood transfusion yesterday Objective VS-OK pain: 07/31 SCr, Lytes,-OK Plts-120 H&H-8.9/27.5 (post transfusion) No BM yet Assessment Using Oxycodone and APAP for pain control. Plan PT notes patient does not feel reaady for discharge home. Original Note: Admission Pharmacy Clinical Review Code Status Full Code Current Weight Wgt- 105.8 kg Renally Cleared and Narrow Therapeutic Index Meds CrCl~ 76.19 mL/min Meds-OK QTc Value / Action Taken NA BP Control, Fever BP-88/57 Tmax- 36.7C Electrolytes reviewed Na- 141 K+4.2 DVT Prophylaxis Xarelto Opiate Usage / Scheduled Bowel Regimen Ordered Yes Yes Plt/SCr for Heparin / Enoxaparin Plts- 133 SCr- 0.63 INR for Warfarin na H/H stable, WBC/Bands H&H- 9.+/29.9 WBC-8.39 Antibiotic appropriateness Ancef Cultures and Sensitivities none Surgical ABX d/c within 24 hr Yes DM control / Insulin Dosing BG-117 Heart Failure (Check EF%) (BERTHA's, B-Block, Diuretics) none IV to PO Switch No Home Meds Reviewed Yes Home Meds Not Ordere ASA, Osteo-BioFlex, Nystatin, MLotrimin Comments
[2018-01-30] MEDS: Normal Saline 1,000 ML 1000 ML IV (13:18)
--- NOTE | 2018-01-30 13:35 | MCONE_ITS ---
Date of service: 01/30/18 Time of Service: 13:19 Assessment and Plan (1) Pre-syncope: Current visit: Yes Status: Acute Doubt ACS and most likely this had to do with orthostasis. Will continue to hydrate intravenously. (2) Orthostatic hypotension: Current visit: Yes Status: Acute Follow H/H - may require transfusion. For now, IV fluids. (3) Chest pain: Current visit: Yes Status: Acute Possibly symptomatic anemia. At this point, resolved, no evidence of ACS, but if recurs, would transfuse even with hemoglobin above 8. (4) Symptomatic anemia: Current visit: Yes Status: Acute As above History of Present Illness Chief Complaint: Chest pain and dizziness when patient tried to get up this morning Narrative: Ms Anderson is a 62 year old female with PMHx of osteoarthritis s/p B total knee replacements by Dr Zafar on 01/29/18 (yesterday), during which EBL was about 500-600 cc, as well as history of depression and obesity w/ BMI of 34 who, when she attempted to sit up this morning, experienced dizziness, diaphoresis, and acute onset of L-sided chest pain. Her BP at the time was 73/ 50 sitting and 92/50 laying down. The patient was bolused 1 L of LR. Her EKG was normal. Chest pain resolved with laying down. He repeat BP now is 117/74 supine with a heart rate of 98. She feels better. Review of Systems Review of Systems 12 systems reviewed. Pertinent positives and negatives are as per HPI. Exam Narrative Exam Narrative: General: well nourished, well developed Obese female, pale, laying in bed, comfortable, conversing fluently, in no acute distress Neurological: alert and oriented x3, no focal deficits Psychiatric: appropriate speech pattern and content, appropriate affect Skin: pale HEENT: pale sclera, normocephalic, extraocular movements are intact, moist mucous membranes, clear oropharynx, no submandibular or cervical lymphadenopathy , no goiter or JVD Cardiovascular: regularly regular rhythm, no murmurs, rubs, or gallops Pulmonary: nonlabored breathing, clear to auscultation bilaterally Gastrointestinal: Abdomen is soft, nontender, nondistended. No organomegaly or ascites. Extremities: BLE's dressed; toes appear pale and cold Results Last Vital Signs Temp 36.7 C 01/30/18 03:34 Pulse 94 H 01/30/18 12:44 Resp 18 01/30/18 09:42 BP 88/57 L 01/30/18 12:44 Pulse Ox 96 01/30/18 03:34 Labs : 01/30/18 14:15 01/30/18 07:10 Laboratory Results - last 24 hr 01/30/18 01/30/18 07:10 07:10 WBC 8.39 RBC 3.36 L Hgb 9.9 L Hct 29.9 L MCV 89.0 MCH 29.5 MCHC 33.1 RDW 13.2 Plt Count 133 MPV 9.9 Sodium 141 Potassium 4.2 Chloride 106 Carbon Dioxide 30.9 Anion Gap 4.1 BUN 10 Creatinine 0.63 Estimated GFR/1.73 m2 >= 60.00 Glucose 117 H Calcium 8.4 L Troponin I < 0.02 Imaging Additional studies: EKG: HR 70, NSR, no acute ischemia
--- NOTE | 2018-01-30 13:56 | PT.INTREAT ---
Date of service: 01/30/18 Time of Service: 13:57 PT Notes Inpatient Physical Therapy Treatment Note Date: 01/30/18 PRECAUTIONS: WBAT B SUBJECTIVE: Charli states that she is feeling a little better than she was this morning, and is anxious to try to get out of bed this afternoon. OBJECTIVE: PAIN: Patient complained of pain in bilateral knees with weight bearing in ther ex BED MOBILITY/TRANSFERS Supine-sit: S with HOB at 40 degrees Sit-supine: S with HOB at 10 degrees Sit-stand: Min A x2 Stand-sit: CGA x2 Patient sat at edge of bed 2 x 5 minutes GAIT Assistive Device: FWW Weight bearing: WBAT B Assist: Min A x2/Mod A x2 Distance: Static standing times 30 seconds with complaints of lightheadedness and dizziness. VITALS: Patient presenting with orthostatic hypotension. Please refer to nursing notes for specific vital signs. THEREX: Patient completed a lower extremity strengthening program in both seated and supine positions, as per flow sheet. ASSESSMENT: Patient was limited due to dizziness and lightheadedness with standing and weight bearing, presenting with orthostatic hypotension. Patient was unable to participate in gait training secondary to these symptoms. Patient was able to tolerate a progression in her ther ex program, as noted on flow sheet. PLAN: Continue with PT's POC TREATMENT CODE/TIME: 50 minutes; TAx1, TPx2
[2018-01-30 14:23] LABS: HCT 27.3 % (36.0-46.0)
[2018-01-30 14:40] LABS: Troponin I < 0.02 ng/mL (0.00-0.06)
[2018-01-30] MEDS: Lactated Ringers 1,000 ML 150 ML IV ×2 (14:50→21:15)
--- NOTE | 2018-01-30 15:54 | CHAPLAIN ---
I had a brief visit with Charli this morning. She said she'd had a rough morning when she tried to get up and walk. She had several visitors in the room with her, including her , sister and [facility] coworkers.
[2018-01-30] MEDS: Gabapentin 300 MG CAP PO (21:11)
--- NOTE | 2018-01-30 22:12 | W.PM.PROGNOT ---
Assessment and Plan (1) Arthroplasty of knee: Charli is s/p bilateral TKA. Unfortunately, she had some symptomatic hypotension this morning. Her Troponins are negative. Her Hgb is stable at 9.9. She does have orthostatic hypotension with acute post-operative blood los anemia, however, no necessary for a transfusion. Her UOP is good. EKG is normal. I will ask Dr. Berkowitz to see Charli just to make sure there is nothing else to be addressed. Subjective Interval history since last seen: Charli reports having some increased pain. She has been receiving pain medications which has helped keep the pain at bay. She is able to ambulate yesterday with minimal discomfort although she was limited in her distance. When she tried to get up this morning, she became light-headed and dizzy. She had hypotension. At the time she denied any increase work of breathing or chest pain or palpitations or nuasea/vomiting. She did say that she had some transient chest discomfort prior to getting up. EKG was performed. Troponins and labs performed. No numbness or tingling. Exam Narrative Exam Narrative: No distress. AAOX3. No difficulty breathing on room air. No work of breathing. Evaluation of both legs have clean, dry dressings. She is able to straight leg raise. +ADF/APF/EHL/FHL. SILT DP/SP/Tib. Feet are WWP. No pain in calves. Objective Objective Clinical Data: Abnormal lab results 01/30/18 01/30/18 01/30/18 Range/Units 07:10 07:10 14:15 RBC 3.36 L (4.00-5.20) m/cumm Hgb 9.9 L 9.0 L (12.0-15.5) g/dL Hct 29.9 L 27.3 L (36.0-46.0) % Glucose 117 H (70-100) mg/dL Calcium 8.4 L (8.5-10.1) mg/dL Vital Signs Temperature 36.2 C L 01/30/18 19:45 Temperature Source Tympanic 01/30/18 19:45 Pulse 96 H 01/30/18 19:45 Pulse Rhythm Regular 01/30/18 20:40 Respiratory Rate 18 01/30/18 19:45 Respiratory Effort Non-Labored 01/30/18 20:40 Respiratory Depth Normal 01/30/18 20:40 Respiratory Pattern Normal 01/30/18 20:40 Blood Pressure 127/68 01/30/18 19:45 Pulse Oximetry 91 L 01/30/18 19:45 Respiratory End-tidal CO2 36 01/29/18 13:30 Oxygen Delivery Method Room Air 01/30/18 19:45 Oxygen Flow Rate 0 01/30/18 19:45 Pain Level 4 01/30/18 21:14 Comment 01/30/18 12:44 Intake & Output 01/29/18 01/30/18 01/30/18 23:59 11:59 23:59 Intake Total 1952.000 / 8460.166 9430.333 / 2121.333 1922.5 / 1922.5 Output Total 2500 / 2500 1075 / 1075 3550 / 3550 Balance -548.000 / -927.677 3221.333 / 1046.333 -1627.5 / -1627.5 Intake: IV 1712.000 / 0101.522 1451.333 / 1881.333 962.5 / 962.5 Oral 240 / 240 240 / 240 960 / 960 Output: Urine 2500 / 2500 1075 / 1075 3550 / 3550 Other: Urine Color Pale Yellow Pale Yellow Yellow Urine Appearance Clear Clear Clear Emesis Description None Laboratory Results WBC 8.39 k/cumm (4.4-10.8) 01/30/18 07:10 RBC 3.36 m/cumm (4.00-5.20) L 01/30/18 07:10 Hgb 9.0 g/dL (12.0-15.5) L 01/30/18 14:15 Hct 27.3 % (36.0-46.0) L 01/30/18 14:15 MCV 89.0 fL (80-95) 01/30/18 07:10 MCH 29.5 pg (27.0-33.0) 01/30/18 07:10 MCHC 33.1 g/dL (32.0-36.0) 01/30/18 07:10 RDW 13.2 % (11.7-14.6) 01/30/18 07:10 Plt Count 133 x1000/uL (130-400) 01/30/18 07:10 MPV 9.9 fL (8.0-11.0) 01/30/18 07:10 Sodium 141 mmol/L (136-145) 01/30/18 07:10 Potassium 4.2 mmol/L (3.5-5.1) 01/30/18 07:10 Chloride 106 mmol/L (98-107) 01/30/18 07:10 Carbon Dioxide 30.9 mmol/L (21.0-32.0) 01/30/18 07:10 Anion Gap 4.1 mmol/L (3-11) 01/30/18 07:10 BUN 10 mg/dL (7-18) 01/30/18 07:10 Creatinine 0.63 mg/dL (0.55-1.02) 01/30/18 07:10 Estimated GFR/1.73 m2 >= 60.00 (mL/min/1.73m2) 01/30/18 07:10 Glucose 117 mg/dL (70-100) H 01/30/18 07:10 Calcium 8.4 mg/dL (8.5-10.1) L 01/30/18 07:10 Troponin I < 0.02 ng/mL (0.00-0.06) 01/30/18 14:15
--- NOTE | 2018-01-30 22:18 | PGE_ITS ---
Assessment and Plan (1) Arthroplasty of knee: Charli is s/p bilateral TKA. Unfortunately, she had some symptomatic hypotension this morning. Her Troponins are negative. Her Hgb is stable at 9.9. She does have orthostatic hypotension with acute post-operative blood los anemia, however, no necessary for a transfusion. Her UOP is good. EKG is normal. I will ask Dr. Berkowitz to see Cahrli just to make sure there is nothing else to be addressed. Subjective Interval history since last seen: Charli reports having some increased pain. She has been receiving pain medications which has helped keep the pain at bay. She is able to ambulate yesterday with minimal discomfort although she was limited in her distance. When she tried to get up this morning, she became light-headed and dizzy. She had hypotension. At the time she denied any increase work of breathing or chest pain or palpitations or nuasea/vomiting. She did say that she had some transient chest discomfort prior to getting up. EKG was performed. Troponins and labs performed. No numbness or tingling. Exam Narrative Exam Narrative: No distress. AAOX3. No difficulty breathing on room air. No work of breathing. Evaluation of both legs have clean, dry dressings. She is able to straight leg raise. +ADF/APF/EHL/FHL. SILT DP/SP/Tib. Feet are WWP. No pain in calves. Objective Objective Clinical Data: Abnormal lab results 01/30/18 01/30/18 01/30/18 Range/Units 07:10 07:10 14:15 RBC 3.36 L (4.00-5.20) m/cumm Hgb 9.9 L 9.0 L (12.0-15.5) g/dL Hct 29.9 L 27.3 L (36.0-46.0) % Glucose 117 H (70-100) mg/dL Calcium 8.4 L (8.5-10.1) mg/dL Vital Signs Temperature 36.2 C L 01/30/18 19:45 Temperature Source Tympanic 01/30/18 19:45 Pulse 96 H 01/30/18 19:45 Pulse Rhythm Regular 01/30/18 20:40 Respiratory Rate 18 01/30/18 19:45 Respiratory Effort Non-Labored 01/30/18 20:40 Respiratory Depth Normal 01/30/18 20:40 Respiratory Pattern Normal 01/30/18 20:40 Blood Pressure 127/68 01/30/18 19:45 Pulse Oximetry 91 L 01/30/18 19:45 Respiratory End-tidal CO2 36 01/29/18 13:30 Oxygen Delivery Method Room Air 01/30/18 19:45 Oxygen Flow Rate 0 01/30/18 19:45 Pain Level 4 01/30/18 21:14 Comment 01/30/18 12:44 Intake & Output 01/29/18 01/30/18 01/30/18 23:59 11:59 23:59 Intake Total 1952.000 / 2466.271 4867.333 / 2121.333 1922.5 / 1922.5 Output Total 2500 / 2500 1075 / 1075 3550 / 3550 Balance -548.000 / -462.091 1827.333 / 1046.333 -1627.5 / -1627.5 Intake: IV 1712.000 / 3407.343 8700.333 / 1881.333 962.5 / 962.5 Oral 240 / 240 240 / 240 960 / 960 Output: Urine 2500 / 2500 1075 / 1075 3550 / 3550 Other: Urine Color Pale Yellow Pale Yellow Yellow Urine Appearance Clear Clear Clear Emesis Description None Laboratory Results WBC 8.39 k/cumm (4.4-10.8) 01/30/18 07:10 RBC 3.36 m/cumm (4.00-5.20) L 01/30/18 07:10 Hgb 9.0 g/dL (12.0-15.5) L 01/30/18 14:15 Hct 27.3 % (36.0-46.0) L 01/30/18 14:15 MCV 89.0 fL (80-95) 01/30/18 07:10 MCH 29.5 pg (27.0-33.0) 01/30/18 07:10 MCHC 33.1 g/dL (32.0-36.0) 01/30/18 07:10 RDW 13.2 % (11.7-14.6) 01/30/18 07:10 Plt Count 133 x1000/uL (130-400) 01/30/18 07:10 MPV 9.9 fL (8.0-11.0) 01/30/18 07:10 Sodium 141 mmol/L (136-145) 01/30/18 07:10 Potassium 4.2 mmol/L (3.5-5.1) 01/30/18 07:10 Chloride 106 mmol/L (98-107) 01/30/18 07:10 Carbon Dioxide 30.9 mmol/L (21.0-32.0) 01/30/18 07:10 Anion Gap 4.1 mmol/L (3-11) 01/30/18 07:10 BUN 10 mg/dL (7-18) 01/30/18 07:10 Creatinine 0.63 mg/dL (0.55-1.02) 01/30/18 07:10 Estimated GFR/1.73 m2 >= 60.00 (mL/min/1.73m2) 01/30/18 07:10 Glucose 117 mg/dL (70-100) H 01/30/18 07:10 Calcium 8.4 mg/dL (8.5-10.1) L 01/30/18 07:10 Troponin I < 0.02 ng/mL (0.00-0.06) 01/30/18 14:15
[2018-01-31] VITALS (12 sets, daily range): BP systolic 97–120; BP diastolic 48–79; PULSE 77–97; RESP 14–18; TEMP 36–37.3; O2SAT 94–99
[2018-01-31] MEDS: oxyCODONE 5 MG TAB PO ×3 (00:15→08:50)
[2018-01-31] MEDS: Lactated Ringers 1,000 ML 150 ML IV (04:13)
[2018-01-31 07:24] LABS: Abs Immature Grans 0.03 k/cumm (0.0-0.09); Absolute Basophil Count 0.02 k/cumm (0.0-0.2); Absolute Eosinophil Count 0.09 k/cumm (0.0-0.7); Absolute Lymphocyte Count 2.28 k/cumm (1.2-3.4); Absolute Monocyte Count 1.19 k/cumm (0.11-0.7); Basophils % 0.2; Eosinophils % 1.1; HCT 25.4 % (36.0-46.0); HGB 8.2 g/dL (12.0-15.5); Immature Grans % 0.4; Lymphocytes % 26.8; Mean Corp. HGB Concentration 32.3 g/dL (32.0-36.0); Mean Corpuscular Hemoglobin 29.3 pg (27.0-33.0); Mean Corpuscular Volume 90.7 fL (80-95); Mean Platelet Volume 9.8 fL (8.0-11.0); Neutrophils % 57.5; Platelet Count 121 x1000/uL (130-400); RBC Distribution Width 13.5 % (11.7-14.6); White Blood Cell Count 8.51 k/cumm (4.4-10.8)
[2018-01-31 07:47] LABS: Anion Gap 3.2 mmol/L (3-11); BUN 8 mg/dL (7-18); CO2 33.8 mmol/L (21.0-32.0); CREATININE 0.48 mg/dL (0.55-1.02); Calcium 8.1 mg/dL (8.5-10.1); Chloride 108 mmol/L (98-107); Glucose 97 mg/dL (70-100); Magnesium 1.7 mg/dL (1.8-2.4); Potassium 3.8 mmol/L (3.5-5.1); Sodium 145 mmol/L (136-145)
[2018-01-31] MEDS: Omega-3 Fatty Acids 1000 MG CAP 2000 MG PO (08:36)
[2018-01-31] MEDS: Normal Saline Flush 10 ML SYR IV ×2 (08:36→23:33)
[2018-01-31] MEDS: Dexamethasone 4 MG TAB PO (08:37)
[2018-01-31] MEDS: Rivaroxaban 10 MG TABLET PO (08:37)
[2018-01-31] MEDS: Celecoxib 200 MG CAP PO ×2 (08:37→19:43)
[2018-01-31] MEDS: Multivitamin TAB 1 TAB PO (08:38)
[2018-01-31] MEDS: Acetaminophen 500 MG TAB 1000 MG PO ×3 (08:38→19:44)
[2018-01-31] MEDS: buPROPion-CR 150 MG TABCR PO ×2 (08:38→19:43)
[2018-01-31] MEDS: Cyanocobalamin 500 MCG TAB PO (08:38)
[2018-01-31] MEDS: Pantoprazole 40 MG TABCR PO (08:50)
--- NOTE | 2018-01-31 09:56 | PT.INTREAT ---
Date of service: 01/31/18 Time of Service: 09:56 PT Notes Inpatient Physical Therapy Treatment Note Date: 01/31/18 PRECAUTIONS: WBAT on B SUBJECTIVE: Charli states that she is feeling a little better today, although still tired, and she is anxious to get up out of bed into the chair. OBJECTIVE: PAIN: No complaints of soreness in bilateral knees with weight bearing BED MOBILITY/TRANSFERS Supine-sit: S with HOB at 40 degrees Sit-stand: CGA Stand-sit: CGA Bed-Chair: CGA GAIT Assistive Device: FWW Weight bearing: WBAT B Assist: CGA Distance: 5' THEREX: Patient performed a seated lower extremity strengthening program, as per flow sheet. ASSESSMENT: Patient tolerated session well, with minimal complaints of soreness in bilateral knees with weight bearing. Patient was able to tolerate gait training with FWW support, requiring CGA only. Patient would benefit from continued transfer and gait training as well as strengthening for improved ability to perform daily functional tasks. PLAN: Continue with PTs POC TREATMENT CODE/TIME: 30 minutes; TA/TP
--- NOTE | 2018-01-31 10:28 | PDOC.CMPRO ---
Care Management Progress Note S/O-Charli is sitting up in recliner chair when CM enters. She states today is a better day than yesterday. Feels she is making good progress. In discussing PT after d/c, she would prefer to start with HH for PT then transition when she feels better and can get out of the house easily.. A-62 yo woman admitted following bilateral TKA. P-d/c home as per MD with plan for PT through HH before transitioning to op PT. [facility] to transport.
[2018-01-31] MEDS: Magnesium Chloride 64 MG TABCR PO (10:56)
--- NOTE | 2018-01-31 12:26 | W.PM.PROGNOT ---
Assessment and Plan (1) Orthostatic hypotension: Current visit: Yes Status: Acute Daniel continues to have some orthostatic hypotension. Her urine output is good and her heart rate is not significantly high, however, she continues to be symptomatic when she stands. We will continue to gradually increase her standing and walking. Due to the hemoglobin dropped down to 8.2, and her persistent symptoms, I would recommend transfusion of 1 unit. We will start that today. (2) Symptomatic anemia: Current visit: Yes Status: Acute Her hemoglobin dropped to 8.2 down from her preoperative status. Given her symptoms with hypotension and inability to stand, I would recommend transfusion of 1 unit (3) Arthroplasty of knee: And he is postop day #2 from her bilateral knee replacements. Unfortunately, her recovery has been a little bit slowed by her orthostatic hypotension and the dizziness when she tries to stand. We will also continue with physical therapy today. I would recommend the transfusion of 1 unit. She is to continue be weightbearing as tolerated. We will continue with rivaroxaban for DVT prophylaxis. At this point there are no concerning features of her symptoms. We will continue to follow her closely. Subjective Interval history since last seen: And he notes that had a better night last night. She still has some pain which is controlled with the oxycodone. She has not stood up from the bed yet although she feels like she is doing better. She denies any current dizziness. She denies any current lightheadedness. She has no chest pain. She has no palpitations. She denies fevers or chills. She is tolerating food and drink. Exam Narrative Exam Narrative: She is in no acute distress. Alert and oriented x3. No work of breathing. No discomfort. [place] wraps removed from bilateral knees. Dressings are clean dry and intact. She is able straight leg raise on both sides. She also has intact ankle dorsiflexion, plantarflexion, EHL, and FHL. Sensation intact light touch over the deep and superficial peroneal nerves and tibial nerves bilaterally. Both feet are warm and well perfused with palpable PT and DP pulses. Objective Objective Clinical Data: Abnormal lab results 01/30/18 01/31/18 01/31/18 Range/Units 14:15 07:10 07:10 RBC 2.80 L (4.00-5.20) m/cumm Hgb 9.0 L 8.2 L (12.0-15.5) g/dL Hct 27.3 L 25.4 L (36.0-46.0) % Plt Count 121 L (130-400) x1000/uL Absolute Monocytes 1.19 H (0.11-0.7) k/cumm Chloride 108 H (98-107) mmol/L Carbon Dioxide 33.8 H (21.0-32.0) mmol/L Creatinine 0.48 L (0.55-1.02) mg/dL Calcium 8.1 L (8.5-10.1) mg/dL Magnesium 1.7 L (1.8-2.4) mg/dL Crossmatch 01/31/18 Range/Units 07:10 RBC (4.00-5.20) m/cumm Hgb (12.0-15.5) g/dL Hct (36.0-46.0) % Plt Count (130-400) x1000/uL Absolute Monocytes (0.11-0.7) k/cumm Chloride (98-107) mmol/L Carbon Dioxide (21.0-32.0) mmol/L Creatinine (0.55-1.02) mg/dL Calcium (8.5-10.1) mg/dL Magnesium (1.8-2.4) mg/dL Crossmatch See Detail Vital Signs Temperature 36.6 C 01/31/18 12:22 Temperature Source Tympanic 01/31/18 07:55 Pulse 86 01/31/18 12:22 Pulse Rhythm Regular 01/31/18 08:25 Respiratory Rate 16 01/31/18 12:22 Respiratory Effort 01/31/18 08:25 Respiratory Depth Normal 01/31/18 08:25 Respiratory Pattern Normal 01/31/18 08:25 Blood Pressure 117/79 01/31/18 12:22 Pulse Oximetry 99 01/31/18 12:22 Respiratory End-tidal CO2 36 01/29/18 13:30 Oxygen Delivery Method Room Air 01/31/18 12:22 Oxygen Flow Rate 0 01/31/18 12:22 Pain Level 3 01/31/18 08:38 Comment 01/30/18 12:44 Intake & Output 01/30/18 01/31/18 01/31/18 23:59 11:59 23:59 Intake Total 1922.5 / 1922.5 2292.5 / 2292.5 Output Total 3550 / 3550 1825 / 1825 Balance -1627.5 / -1627.5 467.5 / 467.5 Intake: IV 962.5 / 962.5 1991.5 / 1991.5 Oral 960 / 960 300 / 300 Output: Urine 3550 / 3550 1825 / 1825 Other: Urine Color Pale Yellow Yellow Urine Appearance Clear Clear Laboratory Results WBC 8.51 k/cumm (4.4-10.8) 01/31/18 07:10 RBC 2.80 m/cumm (4.00-5.20) L 01/31/18 07:10 Hgb 8.2 g/dL (12.0-15.5) L 01/31/18 07:10 Hct 25.4 % (36.0-46.0) L 01/31/18 07:10 MCV 90.7 fL (80-95) 01/31/18 07:10 MCH 29.3 pg (27.0-33.0) 01/31/18 07:10 MCHC 32.3 g/dL (32.0-36.0) 01/31/18 07:10 RDW 13.5 % (11.7-14.6) 01/31/18 07:10 Plt Count 121 x1000/uL (130-400) L 01/31/18 07:10 MPV 9.8 fL (8.0-11.0) 01/31/18 07:10 Immature Gran % 0.4 01/31/18 07:10 Neutrophils % 57.5 01/31/18 07:10 Lymphocytes % 26.8 01/31/18 07:10 Monocytes % 14.0 01/31/18 07:10 Eosinophils % 1.1 01/31/18 07:10 Basophils % 0.2 01/31/18 07:10 Absolute Neutrophils 4.90 k/cumm (1.2-6.7) 01/31/18 07:10 Absolute Lymphocytes 2.28 k/cumm (1.2-3.4) 01/31/18 07:10 Absolute Monocytes 1.19 k/cumm (0.11-0.7) H 01/31/18 07:10 Absolute Eosinophils 0.09 k/cumm (0.0-0.7) 01/31/18 07:10 Absolute Basophils 0.02 k/cumm (0.0-0.2) 01/31/18 07:10 Sodium 145 mmol/L (136-145) 01/31/18 07:10 Potassium 3.8 mmol/L (3.5-5.1) 01/31/18 07:10 Chloride 108 mmol/L (98-107) H 01/31/18 07:10 Carbon Dioxide 33.8 mmol/L (21.0-32.0) H 01/31/18 07:10 Anion Gap 3.2 mmol/L (3-11) 01/31/18 07:10 BUN 8 mg/dL (7-18) 01/31/18 07:10 Creatinine 0.48 mg/dL (0.55-1.02) L 01/31/18 07:10 Estimated GFR/1.73 m2 >= 60.00 (mL/min/1.73m2) 01/31/18 07:10 Glucose 97 mg/dL (70-100) 01/31/18 07:10 Calcium 8.1 mg/dL (8.5-10.1) L 01/31/18 07:10 Magnesium 1.7 mg/dL (1.8-2.4) L 01/31/18 07:10 Troponin I < 0.02 ng/mL (0.00-0.06) 01/30/18 14:15 Patient ABO/Rh B Positive 01/31/18 07:10 Antibody Screen Negative 01/31/18 07:10 Crossmatch See Detail 01/31/18 07:10
--- NOTE | 2018-01-31 13:35 | PT.INTREAT ---
Date of service: 01/31/18 Time of Service: 13:31 PT Notes Inpatient Physical Therapy Treatment Note Date: 01/31/18 PRECAUTIONS: Fall precautions, WBAT B LE's SUBJECTIVE: Pt in chair, just finished blood transfusion, asking to get back to bed to rest. OBJECTIVE: General observation: R UE IV, bilateral cryocuffs PAIN: 3010 bilateral knees BED MOBILITY/TRANSFERS Sit-stand: CGA with FWW, cues for flexion of bilateral knees to get feet in position to stand Chair-bed: SBA with FWW Stand-sit: SBA Sit-supine: HOB flat, supervision GAIT: CGA with FWW 5ft WBAT B LE's THEREX: bilateral ankle pumps, long arc quads x 20 reps. Pt performed knee flexion in chair x 10 bilaterally to ~ 50 degrees ASSESSMENT: Pt with improved mobility with transfers and gait with FWW. Still presenting with bilateral quad weakness post op and decreased knee flexion in sitting, making it difficult to get to standing positions without assistance. She reports feeling stronger today, will plan to progress gait distance tomorrow. PLAN: Progress strengthening Progress transfers Progress gait TREATMENT CODE/TIME: 25min TAx1 TPx1 1330 Marlene Monteiro PT
[2018-01-31 14:21] LABS: HCT 30.1 % (36.0-46.0); HGB 9.7 g/dL (12.0-15.5)
[2018-01-31] MEDS: Gabapentin 300 MG CAP PO (22:16)
[2018-01-31] MEDS: Normal Saline 1,000 ML 150 ML IV (23:18)
[2018-02-01 00:30] VITALS: BP 105/70; PULSE 90; RESP 19; TEMP 36.2; O2SAT 95
[2018-02-01 03:40] VITALS: BP 138/80; PULSE 77; RESP 18; TEMP 36.7; O2SAT 95
[2018-02-01] MEDS: Normal Saline 1,000 ML 150 ML IV ×3 (05:33→19:13)
[2018-02-01 07:23] VITALS: BP 107/72; PULSE 80; RESP 20; TEMP 36.7; O2SAT 97
[2018-02-01 07:31] LABS: HCT 27.5 % (36.0-46.0); HGB 8.9 g/dL (12.0-15.5); Mean Corp. HGB Concentration 32.4 g/dL (32.0-36.0); Mean Corpuscular Hemoglobin 29.7 pg (27.0-33.0); Mean Corpuscular Volume 91.7 fL (80-95); Platelet Count 120 x1000/uL (130-400); RBC Distribution Width 13.7 % (11.7-14.6)
[2018-02-01 07:58] LABS: Chloride 108 mmol/L (98-107)
[2018-02-01 08:06] LABS: Anion Gap 6.7 mmol/L (3-11); BUN 10 mg/dL (7-18); CO2 29.3 mmol/L (21.0-32.0); CREATININE 0.54 mg/dL (0.55-1.02); Calcium 8.1 mg/dL (8.5-10.1); Glucose 91 mg/dL (70-100); Magnesium 1.9 mg/dL (1.8-2.4); Potassium 3.7 mmol/L (3.5-5.1); Sodium 144 mmol/L (136-145)
[2018-02-01] MEDS: Omega-3 Fatty Acids 1000 MG CAP 2000 MG PO (09:25)
[2018-02-01] MEDS: Cyanocobalamin 500 MCG TAB PO (09:26)
[2018-02-01] MEDS: Multivitamin TAB 1 TAB PO (09:26)
[2018-02-01] MEDS: buPROPion-CR 150 MG TABCR PO ×2 (09:26→20:44)
[2018-02-01] MEDS: Magnesium Chloride 64 MG TABCR PO (09:26)
[2018-02-01] MEDS: Acetaminophen 500 MG TAB 1000 MG PO ×3 (09:26→20:44)
[2018-02-01] MEDS: Pantoprazole 40 MG TABCR PO (09:26)
[2018-02-01] MEDS: Rivaroxaban 10 MG TABLET PO (09:26)
[2018-02-01] MEDS: Celecoxib 200 MG CAP PO ×2 (09:26→20:44)
[2018-02-01] MEDS: oxyCODONE 5 MG TAB PO ×4 (09:34→20:43)
--- NOTE | 2018-02-01 10:30 | PDOC.CMPRO ---
- If Service Date Differs Date of service: 02/01/18 Time of Service: 10:30 Care Management Progress Note S/O-Daniel is sitting up in her recliner when CM visits this morning. Her sister is at bedside. Daniel reports that she is feeling a lot better today following a transfusion of one unit yesterday. She has been working 2/day with PT using a walker for ambulation. She reports that her left leg is sore at the moment but she has been sleeping well. Per discussion with patient and PT, Daniel would benefit from home PT and then transition to outpatient when ready. A-62 yo female admitted following bilateral TKA. P-Daniel will discharge home when medically ready per MD. Anticipate patient will discharge with home PT and follow up with MD. Daniel will transport via private vehicle with her , Rupert. CM will continue to offer support to patient, family, and care team regarding discharge planning and disposition.
--- NOTE | 2018-02-01 11:06 | PT.INTREAT ---
Date of service: 02/01/18 Time of Service: 11:06 PT Notes Inpatient Physical Therapy Treatment Note Date: 02/01/18 PRECAUTIONS: WBAT on B SUBJECTIVE: Charli reports that she has gotten up to the commode several times and sat in the chair for breakfast. She states that she is feeling much better after receiving a unit of blood yesterday. She indicates that she does not feel ready to be discharged to home just yet. OBJECTIVE: PAIN: Patient complained of pain in bilateral knees with ther ex and active knee flexion BED MOBILITY/TRANSFERS Sit-supine: S with HOB flat Sit-stand: SBA Stand-sit: SBA GAIT Assistive Device: FWW Weight bearing: WBAT B Assist: SBA Distance: 5' +25' Deviation: Standing rest x2, complaints of lightheadedness THEREX: Patient completed a supine lower extremity strengthening and stabilization program, as per flow sheet. Patient continues to demonstrate weakness in left > right. AROM is measured at 3-40 degrees on L and 3-50 degrees on R in supine position. End session with cryocuff on bilateral knees. ASSESSMENT: Patient tolerated a progression in gait training with FWW support, well, requiring standing rest x2 with complaints of lightheadedness. Patient would benefit from continued strengthening as well as gait and transfer training to improve independence with these functional tasks. PLAN: Continue with PTs POC TREATMENT CODE/TIME: 40 minutes; TA x2/TP
[2018-02-01 11:15] VITALS: BP 122/61; PULSE 85; RESP 20; TEMP 36.5; O2SAT 95
--- NOTE | 2018-02-01 15:06 | PT.INTREAT ---
Date of service: 02/01/18 Time of Service: 15:07 PT Notes Inpatient Physical Therapy Treatment Note Date: 02/01/18 PRECAUTIONS: WBAT B SUBJECTIVE: Jayson states that she is feeling better, although continues to have soreness in bilateral knees, L > R. OBJECTIVE: PAIN: Patient complains of soreness in B knees with ther ex and weight bearing BED MOBILITY/TRANSFERS Supine-sit: I with HOB flat Sit-stand: SBA Stand-sit: SBA GAIT Assistive Device: FWW Weight bearing: WBAT B WBAT B Assist: SBA Distance: 5' +25' Deviation: Standing rest x1 THEREX: Patient completed a lower extremity strengthening and stabilization program, as per flow sheet. Patient's AROM is measured to be 0-55 degrees on L and 0-80 degrees on R. And with cryocuff to B knees. TOILETING: Patient toileted with SBA for transfers only. ASSESSMENT: Patient tolerated session with c/o lightheadedness with gait training, although was able to tolerate a progression in gait distance tolerance today. She would benefit from continued gait and transfer training as well as continued strengthening to improve gait duration tolerance and improved ability to perform these functional tasks at a more independent level. PLAN: Continue with PT's POC TREATMENT CODE/TIME: 35 minutes; TA/TP
[2018-02-01 16:18] VITALS: BP 108/72; PULSE 83; RESP 18; TEMP 36.6; O2SAT 97
--- NOTE | 2018-02-01 16:41 | W.PM.PROGNOT ---
Subjective Interval history since last seen: Hospitalists have signed off. Objective Objective Clinical Data: Abnormal lab results 02/01/18 02/01/18 Range/Units 07:15 07:15 RBC 3.00 L (4.00-5.20) m/cumm Hgb 8.9 L (12.0-15.5) g/dL Hct 27.5 L (36.0-46.0) % Plt Count 120 L (130-400) x1000/uL Chloride 108 H (98-107) mmol/L Creatinine 0.54 L (0.55-1.02) mg/dL Calcium 8.1 L (8.5-10.1) mg/dL Vital Signs Temperature 36.6 C 02/01/18 16:18 Temperature Source Tympanic 02/01/18 16:18 Pulse 83 02/01/18 16:18 Pulse Rhythm Regular 02/01/18 08:20 Respiratory Rate 18 02/01/18 16:18 Respiratory Effort Non-Labored 02/01/18 08:20 Respiratory Depth Normal 02/01/18 08:20 Respiratory Pattern Normal 02/01/18 08:20 Blood Pressure 108/72 02/01/18 16:18 Pulse Oximetry 97 02/01/18 16:18 Respiratory End-tidal CO2 36 01/29/18 13:30 Oxygen Delivery Method Room Air 02/01/18 16:18 Oxygen Flow Rate 0 02/01/18 16:18 Pain Level 3 02/01/18 14:13 Comment 01/30/18 12:44 Intake & Output 01/31/18 02/01/18 02/01/18 23:59 11:59 23:59 Intake Total 735 / 735 1967.5 / 1967.5 1540 / 1540 Output Total 3250 / 3250 1550 / 1550 200 / 200 Balance -2515 / -2515 417.5 / 417.5 1340 / 1340 Intake: IV 937.5 / 937.5 1000 / 1000 Oral 360 / 360 1030 / 1030 540 / 540 Blood Product 375 / 375 Rbc Leuko Reduced Unit 375 / 375 [id number] Output: Urine 3250 / 3250 1550 / 1550 200 / 200 Other: Urine Color Yellow Yellow Yellow Urine Appearance Clear Clear Clear Urine Odor None Comment Void x1 in the bedside commode. Voiding Methods Bedside Commode Bedside Commode Laboratory Results WBC 9.10 k/cumm (4.4-10.8) 02/01/18 07:15 RBC 3.00 m/cumm (4.00-5.20) L 02/01/18 07:15 Hgb 8.9 g/dL (12.0-15.5) L 02/01/18 07:15 Hct 27.5 % (36.0-46.0) L 02/01/18 07:15 MCV 91.7 fL (80-95) 02/01/18 07:15 MCH 29.7 pg (27.0-33.0) 02/01/18 07:15 MCHC 32.4 g/dL (32.0-36.0) 02/01/18 07:15 RDW 13.7 % (11.7-14.6) 02/01/18 07:15 Plt Count 120 x1000/uL (130-400) L 02/01/18 07:15 MPV 10.0 fL (8.0-11.0) 02/01/18 07:15 Immature Gran % 0.4 01/31/18 07:10 Neutrophils % 57.5 01/31/18 07:10 Lymphocytes % 26.8 01/31/18 07:10 Monocytes % 14.0 01/31/18 07:10 Eosinophils % 1.1 01/31/18 07:10 Basophils % 0.2 01/31/18 07:10 Absolute Neutrophils 4.90 k/cumm (1.2-6.7) 01/31/18 07:10 Absolute Lymphocytes 2.28 k/cumm (1.2-3.4) 01/31/18 07:10 Absolute Monocytes 1.19 k/cumm (0.11-0.7) H 01/31/18 07:10 Absolute Eosinophils 0.09 k/cumm (0.0-0.7) 01/31/18 07:10 Absolute Basophils 0.02 k/cumm (0.0-0.2) 01/31/18 07:10 Sodium 144 mmol/L (136-145) 02/01/18 07:15 Potassium 3.7 mmol/L (3.5-5.1) 02/01/18 07:15 Chloride 108 mmol/L (98-107) H 02/01/18 07:15 Carbon Dioxide 29.3 mmol/L (21.0-32.0) 02/01/18 07:15 Anion Gap 6.7 mmol/L (3-11) 02/01/18 07:15 BUN 10 mg/dL (7-18) 02/01/18 07:15 Creatinine 0.54 mg/dL (0.55-1.02) L 02/01/18 07:15 Estimated GFR/1.73 m2 >= 60.00 (mL/min/1.73m2) 02/01/18 07:15 Glucose 91 mg/dL (70-100) 02/01/18 07:15 Calcium 8.1 mg/dL (8.5-10.1) L 02/01/18 07:15 Magnesium 1.9 mg/dL (1.8-2.4) 02/01/18 07:15 Troponin I < 0.02 ng/mL (0.00-0.06) 01/30/18 14:15 Patient ABO/Rh B Positive 01/31/18 07:10 Antibody Screen Negative 01/31/18 07:10 Crossmatch See Detail 01/31/18 07:10
[2018-02-01 20:42] VITALS: BP 101/62; PULSE 105; RESP 18; TEMP 36.8; O2SAT 95
[2018-02-01] MEDS: Gabapentin 300 MG CAP PO (20:45)
[2018-02-02] VITALS (7 sets, daily range): BP systolic 101–142; BP diastolic 66–83; PULSE 75–96; RESP 16–18; TEMP 36.3–37.2; O2SAT 95–99
[2018-02-02] MEDS: Normal Saline 1,000 ML 150 ML IV (01:29)
[2018-02-02] MEDS: oxyCODONE 5 MG TAB PO ×6 (04:28→20:50)
[2018-02-02] MEDS: Acetaminophen 500 MG TAB 1000 MG PO ×3 (08:11→20:50)
[2018-02-02] MEDS: Magnesium Chloride 64 MG TABCR PO (08:12)
[2018-02-02] MEDS: Omega-3 Fatty Acids 1000 MG CAP 2000 MG PO (08:12)
[2018-02-02] MEDS: Celecoxib 200 MG CAP PO ×2 (08:12→20:50)
[2018-02-02] MEDS: Rivaroxaban 10 MG TABLET PO (08:13)
[2018-02-02] MEDS: buPROPion-CR 150 MG TABCR PO ×2 (08:13→20:50)
[2018-02-02] MEDS: Multivitamin TAB 1 TAB PO (08:13)
[2018-02-02] MEDS: Cyanocobalamin 500 MCG TAB PO (08:13)
[2018-02-02] MEDS: Pantoprazole 40 MG TABCR PO (08:13)
--- NOTE | 2018-02-02 08:42 | W.PM.PROGNOT ---
Assessment and Plan (1) Primary osteoarthritis of both knees: Current visit: No Status: Chronic Charli is also day #4 from bilateral total knee arthroplasty. She is making progress, albeit slowly. She did have symptomatic postoperative blood loss anemia and did receive 1 unit transfusion. Her hemoglobin checked yesterday was stable. Her vital signs been stable. She has been able to ambulate, however, only short distances. I expect that she will continue to make gains today. She is to work with physical therapy this morning. By this afternoon I would expect she will be ready for discharge home. If things do not go as planned physical therapy today that he may have to consider swing bed placement for continued therapy prior to returning home. She will need home health physical therapy. We will continue rivaroxaban for DVT prophylaxis. All fluids are stopped and she is voiding spontaneously and has had a bowel movement. (2) Symptomatic anemia: Current visit: Yes Status: Acute (3) Orthostatic hypotension: Current visit: Yes Status: Acute Subjective Interval history since last seen: Charli had a good day yesterday and was able to ambulate some within the room. She still was unable to go more than about 15 or 20 feet. She did have some more pain last night. It has been responsive to pain medications. She also reports more stiffness. The left is hurting more than the right. She had some minimal lightheadedness yesterday with ambulation but nothing like before. She denies chest pain or palpitations. She denies fevers or chills. She has had a bowel movement. Exam Narrative Exam Narrative: Evaluation of both knees shows clean, dry, and intact dressings. No signs of bleeding through the dressing. Minimal ecchymosis. Some swelling. The left knee has range of motion of 5-85 degrees and the right knee has range of motion from 0-90 degrees. She is able to straight leg raise. Sensation intact light touch over the deep and superficial peroneal nerve and tibial nerve. Objective Objective Clinical Data: Vital Signs Temperature 36.5 C 02/02/18 07:10 Temperature Source Tympanic 02/02/18 07:10 Pulse 94 H 02/02/18 07:10 Pulse Rhythm Regular 02/01/18 20:00 Respiratory Rate 18 02/02/18 07:10 Respiratory Effort Non-Labored 02/01/18 20:00 Respiratory Depth Normal 02/01/18 20:00 Respiratory Pattern Normal 02/01/18 20:00 Blood Pressure 113/75 02/02/18 07:10 Pulse Oximetry 95 02/02/18 07:10 Respiratory End-tidal CO2 36 01/29/18 13:30 Oxygen Delivery Method Room Air 02/02/18 07:10 Oxygen Flow Rate 0 02/02/18 07:10 Pain Level 3 02/02/18 08:13 Comment 01/30/18 12:44 Intake & Output 02/01/18 02/01/18 02/02/18 11:59 23:59 11:59 Intake Total 1967.5 / 1967.5 2480 / 2480 1929 Output Total 1550 / 1550 1100 / 1100 Balance 417.5 / 417.5 1380 / 1380 1929 Intake: IV 937.5 / 937.5 1999 Oral 1030 / 1030 480 / 480 Output: Urine 1550 / 1550 1100 / 1100 Other: Urine Color Yellow Yellow Urine Appearance Clear Clear Urine Odor None None Comment Void x1 in the bedside commode. Void x1 in the bedside commode. Voiding Methods Bedside Commode Bedside Commode Laboratory Results WBC 9.10 k/cumm (4.4-10.8) 02/01/18 07:15 RBC 3.00 m/cumm (4.00-5.20) L 02/01/18 07:15 Hgb 8.9 g/dL (12.0-15.5) L 02/01/18 07:15 Hct 27.5 % (36.0-46.0) L 02/01/18 07:15 MCV 91.7 fL (80-95) 02/01/18 07:15 MCH 29.7 pg (27.0-33.0) 02/01/18 07:15 MCHC 32.4 g/dL (32.0-36.0) 02/01/18 07:15 RDW 13.7 % (11.7-14.6) 02/01/18 07:15 Plt Count 120 x1000/uL (130-400) L 02/01/18 07:15 MPV 10.0 fL (8.0-11.0) 02/01/18 07:15 Immature Gran % 0.4 01/31/18 07:10 Neutrophils % 57.5 01/31/18 07:10 Lymphocytes % 26.8 01/31/18 07:10 Monocytes % 14.0 01/31/18 07:10 Eosinophils % 1.1 01/31/18 07:10 Basophils % 0.2 01/31/18 07:10 Absolute Neutrophils 4.90 k/cumm (1.2-6.7) 01/31/18 07:10 Absolute Lymphocytes 2.28 k/cumm (1.2-3.4) 01/31/18 07:10 Absolute Monocytes 1.19 k/cumm (0.11-0.7) H 01/31/18 07:10 Absolute Eosinophils 0.09 k/cumm (0.0-0.7) 01/31/18 07:10 Absolute Basophils 0.02 k/cumm (0.0-0.2) 01/31/18 07:10 Sodium 144 mmol/L (136-145) 02/01/18 07:15 Potassium 3.7 mmol/L (3.5-5.1) 02/01/18 07:15 Chloride 108 mmol/L (98-107) H 02/01/18 07:15 Carbon Dioxide 29.3 mmol/L (21.0-32.0) 02/01/18 07:15 Anion Gap 6.7 mmol/L (3-11) 02/01/18 07:15 BUN 10 mg/dL (7-18) 02/01/18 07:15 Creatinine 0.54 mg/dL (0.55-1.02) L 02/01/18 07:15 Estimated GFR/1.73 m2 >= 60.00 (mL/min/1.73m2) 02/01/18 07:15 Glucose 91 mg/dL (70-100) 02/01/18 07:15 Calcium 8.1 mg/dL (8.5-10.1) L 02/01/18 07:15 Magnesium 1.9 mg/dL (1.8-2.4) 02/01/18 07:15 Troponin I < 0.02 ng/mL (0.00-0.06) 01/30/18 14:15 Patient ABO/Rh B Positive 01/31/18 07:10 Antibody Screen Negative 01/31/18 07:10 Crossmatch See Detail 01/31/18 07:10
--- NOTE | 2018-02-02 08:48 | DSE_ITS ---
Date of service: 02/02/18 Time of Service: 08:46 DS: Diagnosis Discharge Diagnosis (1) Primary osteoarthritis of both knees: Status: Chronic (2) Symptomatic anemia: Status: Acute (3) Orthostatic hypotension: Status: Acute Discharge Plan Disposition Patient Disposition: HOME Condition: Improving Discharge Details Reason For Visit: BILATERAL KNEE DJD Admit Date/Time: 01/29/18 07:36 Admit Provider: Ab Zafar Attending Provider: Ab Zafar Primary Care Provider: Gladis Patricio Hospital Course Hospital Course: Charli was admitted to the medical surgical floor following her procedure. She had no known surgical, medical, or anesthetic complications. She was able to get out of the bed on postop day #0. However she developed some lightheadedness and dizziness while attempting ambulation on postop day #1. Her hemoglobin had dropped to 9. Her vital signs were stable. She was given fluid but continued to have dizziness. Her hemoglobin continued to drop to 8.2 and she was still symptomatic with relative hypotension and dizziness. Therefore, she was transfused 1 unit on postop day #2. This improved her symptoms and by postop day #3 she was no longer having any dizziness. She was able to ambulate minimally within the room and spent most the day in the chair. Her Rodrigues catheter was removed on postop day #2, kept in for fluid management while she was receiving blood. By postop day #3 she was voiding spontaneously and had a bowel movement. She continue to work with physical therapy and on postop day #5 she was deemed safe for discharge home with home health physical therapy. Her vital signs were stable. Home Meds and New Rx's Prescriptions: New acetaminophen [Mapap Extra Strength] 500 mg Tablet 1,000 mg PO TID Qty: 90 RF: 3 pantoprazole 40 mg Tablet,Delayed Release (Dr/Ec) 40 mg PO DAILY@0730 Qty: 30 RF: 1 oxycodone 5 mg Tablet 5 - 10 mg PO Q4H PRN PRN (Reason: Pain) Qty: 24 RF: 0 rivaroxaban [Xarelto] 10 mg Tablet 10 mg PO DAILY Qty: 14 RF: 0 celecoxib 200 mg capsule 200 mg PO BID Qty: 60 RF: 1 gabapentin 300 mg Capsule 300 mg PO HS Qty: 14 RF: 0 bupropion HCl 150 mg Tablet Sustained-Release 12 Hr 150 mg PO BID 30 Days Qty: 60 RF: 0 Continue multivitamin [Daily Vitamin] 1 EACH tablet 1 ea PO DAILY RF: 0 calcium citrate-vitamin D3 [Calcitrate-Vitamin D] 1 EACH tablet 2 ea PO BID RF: 0 Vitamin B 12 500 mg PO DAILY Qty: 1 RF: 0 nystatin 60 GM powder 1 aby Topical BID PRNQty: 60 RF: 1 omega-3 fatty acids-fish oil [Fish Oil] 1 EACH capsule 2,000 ea PO DAILY RF: 0 cholecalciferol (vitamin D3) 1,000 UNIT tablet 1,000 unit PO DAILY RF: 0 clotrimazole 45 GM cream 1 aby Topical BID Qty: 45 RF: 1 dldopnbu-xrxo-jfz4-C-katarzyna-bosw [Osteo Bi-Flex Triple Strength] 1 EACH tablet 2 ea PO DAILY RF: 0 Discontinued aspirin [Aspir-81] 81 MG tablet,delayed release (DR/EC) 81 mg PO DAILY RF: 0 naltrexone-bupropion [Contrave] 8-90 mg tablet extended release 2 tab PO BID Qty: 60 RF: 0 Discharge Instructions Additional Instructions: Dr. Zafar?s Total Knee Discharge Instructions Activity: The most important activity is to walk. You should try to take short walks a few times a day. It is important that when resting you work on keeping the knees straight. Avoid putting a pillow behind the knees as this will encourage flexion. Work on range of motion exercises as provided by Physical Therapy. - You should wear the MIGUE hose on both legs for 4 weeks. Dressing: Keep the surgical dressing in place for at least one week. After the first week it may be removed and replace with light gauze and tape or nothing. It may get wet after 3 days but avoid soaking the dressing. If it gets wet, just lightly pat dry. Medications: - You should take Tylenol and anti-inflammatory (Celebrex or Meloxicam) as your primary pain control medications - You have been prescribed a stronger pain medication (Oxycodone or Dilaudid) for breakthrough pain, take as needed as prescribed. - You will be taking Rivaroxaban 10mg daily for DVT prevention unless instructed otherwise. - If you have constipation you should take Colace or Miralax (both over-the- counter). It takes most people 3-4 days to have a bowel movement. Follow-up: 2 weeks 1. Encounter Date and Reason I certify that CHARLI JACKMAN was seen by Ab Zafar on 02/02/18 and that I had a [id number] encounter with this patient that meets the physician face to face encounter requirements. 2. Clinical Findings Supporting Skilled Need and Homebound Status I certify that home health services are medically necessary, include either intermittent prison and/or physical/speech therapy, and that this patient is homebound in that absences from the home require considerable and taxing effort and are infrequent or of short duration, or are attributable to the need to receive medical care. [X] (a) Attached documentation from encounter provides clinical findings supporting skilled need and homebound status (including what assistance patient requires to leave the home). The encounter with the patient was in whole, or in part, for the following medical condition, which is the primary reason for home health care: BILATERAL KNEE DJD Group Home: Physical Therapy: Charli would benefit from physical therapy to address her significant strength and motion deficits. She is status post bilateral total knee arthroplasty. Physical therapy should address her weakness, focusing on extension. He should also focus on her motion, again focusing on extension. Effort should be made in ambulating multiple times during the day and with gait training. Speech Therapy: Homebound: Charli is homebound. She is unable to leave the house unassisted. She has significant strength deficits and limitations with mobility to prevent her leaving her home independently. 3. Certification and Authentication I certify that I composed the above information based on my clinical judgement relating to this patient's medical condition and, if applicable, clinical findings communicated to me by the NPP or inpatient physician who performed the Home Health Referral. All further orders will be obtained through Dr. Ab Zafar Stand Alone Forms: Nursing Discharge Form Referrals: Ab Zafar MD [ [facility] STAFF PHYSICIAN] - Activity:: Activity as Tolerated Equipment/Supplies:: Walker Diet:: As Tolerated Discharge Orders Discharge Orders: Discharge Order (Routine); Ordered 02/03/18 Ordered By: Ab Zafar DS: Data Vitals/I&O Vitals and I&O: Vital Signs Temperature 36.5 C 02/02/18 07:10 Temperature Source Tympanic 02/02/18 07:10 Pulse 94 H 02/02/18 07:10 Pulse Rhythm Regular 02/01/18 20:00 Respiratory Rate 18 02/02/18 07:10 Respiratory Effort Non-Labored 02/01/18 20:00 Respiratory Depth Normal 02/01/18 20:00 Respiratory Pattern Normal 02/01/18 20:00 Blood Pressure 113/75 02/02/18 07:10 Pulse Oximetry 95 02/02/18 07:10 Respiratory End-tidal CO2 36 01/29/18 13:30 Oxygen Delivery Method Room Air 02/02/18 07:10 Oxygen Flow Rate 0 02/02/18 07:10 Pain Level 3 02/02/18 08:13 Comment 01/30/18 12:44 Intake & Output 02/01/18 02/01/18 02/02/18 11:59 23:59 11:59 Intake Total 1967.5 / 1967.5 2480 / 2480 1929 / 1930 Output Total 1550 / 1550 1100 / 1100 Balance 417.5 / 417.5 1380 / 1380 1929 Intake: IV 937.5 / 937.5 1999 Oral 1030 / 1030 480 / 480 Output: Urine 1550 / 1550 1100 / 1100 Other: Urine Color Yellow Yellow Urine Appearance Clear Clear Urine Odor None None Comment Void x1 in the bedside commode. Void x1 in the bedside commode. Voiding Methods Bedside Commode Bedside Commode
--- NOTE | 2018-02-02 12:40 | PT.INTREAT ---
Date of service: 02/02/18 Time of Service: 09:00 PT Notes Inpatient Physical Therapy Treatment Note Date: 02/02/18 SUBJECTIVE: Charli states that she was cleared by Dr. Zafar to go home later today, but she would like to stay another night. She feels as though she is about 2 days behind due to anesthesia complications. OBJECTIVE: [] Supine-sit: SBA Sit-supine: SBA Sit-stand: SBA Stand-sit: SBA Bed-Chair: SBA Chair-bed: SBA GAIT Assistive Device: FWW Weight bearing: AT Assist: SBA Distance: 30'x2 Deviation: cues to bend knees, as she tends to keep them straight and stiff. THEREX: global LE strengthening with focus on quads. ROM while seated in recliner. Achieved approx. 85 degrees bilaterally ASSESSMENT: tolerated session well. Steady of feet, no LOB and safety concerns. No c/o lightheadedness today. PLAN: Will continue to progress her strength, ROM as well as functional mobility following POC, if she remains another night. TREATMENT CODE/TIME:9:00-9:25. TAx1, TPx1.
--- NOTE | 2018-02-02 16:17 | PDOC.CMPRO ---
- If Service Date Differs Date of service: 02/02/18 Time of Service: 16:17 Care Management Progress Note S/O: Charli is in the room being visited by family. Anticipate she will return home over the weekend. anticipates it will be today depending on how she is feeling, however Charli expresses wanting an additional day. CM will continue to provide support to patient. A-62 yo female admitted following bilateral TKA. P-Daniel will discharge home when medically ready per MD. Anticipate patient will discharge with home PT and follow up with MD. Daniel will transport via private vehicle with her , Rupert. CM will continue to offer support to patient, family, and care team regarding discharge planning and disposition.
[2018-02-02] MEDS: Gabapentin 300 MG CAP PO (20:50)
[2018-02-03 03:05] VITALS: BP 117/70; PULSE 78; RESP 18; TEMP 36.9; O2SAT 96
[2018-02-03] MEDS: oxyCODONE 5 MG TAB PO ×2 (03:17→09:10)
[2018-02-03 07:05] VITALS: BP 119/77; PULSE 93; RESP 18; TEMP 36.4; O2SAT 96
[2018-02-03] MEDS: Magnesium Chloride 64 MG TABCR PO (09:10)
[2018-02-03] MEDS: Multivitamin TAB 1 TAB PO (09:11)
[2018-02-03] MEDS: Pantoprazole 40 MG TABCR PO (09:11)
[2018-02-03] MEDS: Omega-3 Fatty Acids 1000 MG CAP 2000 MG PO (09:11)
[2018-02-03] MEDS: Acetaminophen 500 MG TAB 1000 MG PO ×2 (09:11→13:37)
[2018-02-03] MEDS: buPROPion-CR 150 MG TABCR PO (09:11)
[2018-02-03] MEDS: Celecoxib 200 MG CAP PO (09:11)
[2018-02-03] MEDS: Cyanocobalamin 500 MCG TAB PO (09:11)
[2018-02-03] MEDS: Rivaroxaban 10 MG TABLET PO (09:11)
[2018-02-03 09:55] VITALS: BP 109/75; PULSE 97; RESP 24; TEMP 36.9; O2SAT 97
[2018-02-03] MEDS: Polyethylene Glycol 3350 17 GM PACKET PO (10:03)
[2018-02-03] MEDS: Docusate Sodium 100 MG CAP PO ×2 (10:03→13:38)
[2018-02-03 10:49] LABS: HCT 27.5 % (36.0-46.0)
[2018-02-03] MEDS: Normal Saline 500 ML IV (10:50)
[2018-02-03 11:00] VITALS: BP 98/62; PULSE 72; RESP 18; TEMP 36.1; O2SAT 99
[2018-02-03 12:00] VITALS: BP 122/77; PULSE 80
[2018-02-03] MEDS: Normal Saline Flush 10 ML SYR IV (12:01)
--- NOTE | 2018-02-04 08:11 | PT.INDS ---
Date of service: 02/04/18 Time of Service: 08:11 PT Notes Inpatient Physical Therapy Discharge Summary Date: 02/04/18 for 02/03/18 Dates of Service: 01/29/18-02/03/18 SUBJECTIVE: NT OBJECTIVE: 01/29/18-02/03/18 Bed Mobility/Transfers: Supine-sit: independent Sit-supine: supervision Sit-stand: SBA Stand-sit: SBA Bed-chair: SBA Chair-bed: SBA Gait: SBA with FWW 30ftx2 WBAT Bilateral Balance: Static Sitting: normal Dynamic Sitting: normal Static Standing: good Dynamic Standing: good Assessment: Pt is a 62yr old female s/p bilateral total knee arthroplasties by Dr. Zafar 01/29/18 in setting of venous insufficiency, anxiety, obesity, bariatric surgery, depression, vitamin D deficiency. Patient was seen for 8PT visits, progressed from Lynn bed transfers to SBA, from Lynn standing transfers to SBA, from Lynn gait with FWW 1min standing to SBA Gait with FWW 30ftx2. Standing balance progressed from poor to good. Pt was discharged to home setting, continued PT recommended. Goals: Goals X1 week 1. Supine-Sit: independent 2. Sit-Supine independent 3. Sit-Stand supervision with FWW 4. Stand-Sit supervision 5. Bed-Chair SBA with FWW 6. Chair-Bed SBA with FWW 7. Gait SBA with FWW 70ftx2 WBAT B LE 8. Stairs: up/down 2 steps with axillary crutches, WBAT B LE 9. Independent with home exercise program for TKA Pt met goals # 1, 5, 6 DISCHARGE RECOMMENDATIONS: Home, plans to borrow FWW, continued PT recommended in home setting G Codes in the area mobility of walking and moving around: projected status GP [id number] CK Discharge status (if discharging) GP [id number] CK Marlene Monteiro PT
== END 2018-02-03 14:29 | disposition home health service (06) | DRG 462 ==
LOC: MS 09:26
PROVIDERS: Internal Medicine; Admitting Provider Student in an Organized Health Care Education/Training Program; PCP Nurse Practitioner Adult Health; Visit Provider Student in an Organized Health Care Education/Training Program
PROC: 0SRD0J9 Replacement of Left Knee Joint with Synthetic Substitute, Cemented, Open Approach (ICD-10-PCS; CPT 27447; principal; 2018-01-29 07:30)
DX: M17.0 Bilateral primary osteoarthritis of knee (principal); D62 Acute posthemorrhagic anemia; Z96.653 Presence of artificial knee joint, bilateral; I95.1 Orthostatic hypotension; R07.9 Chest pain, unspecified; Y83.1 Surgical operation with implant of artificial internal device as the cause of abnormal reaction of the patient, or of later complication, without mention of misadventure at the time of the procedure; F41.8 Other specified anxiety disorders; E66.9 Obesity, unspecified; Z68.34 Body mass index [BMI] 34.0-34.9, adult
CPT/HCPCS: 27447; 36415; 36430; 76942; 80048; 85027; 86850; 86900; 86901; 86920; 97110; 97163; 97530; 99254; NC; 83735; 84484; 85014; 85018; 85025; 93005; 93010; 99231; J0690; J1100; J1885; J2250; J2405; J3010; J8540; P9016

== ENCOUNTER 2018-02-18 10:43 | Outpatient (CLI) | payer OTHER, SELFPAY ==
--- NOTE | 2018-02-18 10:36 | DI.RAD_ITS ---
SYMPTOM/DIAGNOSIS: F/U TKA LEG LENGTH, LEFT KNEE AND RIGHT KNEE: Left knee: Comparison is made with 01/23/18. The patient is now status post left total knee replacement. The orthopedic hardware appears in good position. No lucencies are seen in or about the orthopedic hardware to suggest loosening or infection. The bones are intact. Right knee: There are now seen post surgical changes of a right total knee replacement. The orthopedic hardware appears in good position. No lucencies are seen in or about the orthopedic hardware to suggesting loosening or infection. The bones are intact. No fracture or dislocation is seen. Vascular clips are seen in the soft tissues. The right lower extremity measures 96.8 cm. The left lower extremity measures 96.2 cm. IMPRESSION: Bilateral TKR.
== END 2018-02-18 11:03 ==
PROVIDERS: PCP Nurse Practitioner Adult Health; Visit Provider Physician Assistant Surgical
DX: Z96.653 Presence of artificial knee joint, bilateral (principal); Z47.1 Aftercare following joint replacement surgery
CPT/HCPCS: 73560; 77073

== ENCOUNTER 2018-06-15 11:20 | Emergency (ER) | payer OTHER, SELFPAY ==
[2018-06-15 11:24] VITALS: BP 143/73; PULSE 106; RESP 16; TEMP 37; O2SAT 95
--- NOTE | 2018-06-15 11:29 | ED.GENADUL_ITS ---
Discharge Plan Disposition Patient Disposition: HOME Condition: Improving Discharge Details Chief Complaint: RespSymp Clinical Impression: Acute bronchitis Primary Care Provider: Gladis Patricio ED Provider: Lissette Hagan Home Meds and New Rx's Prescriptions: New prednisone 50 mg tablet 50 mg PO DAILY 5 Days Qty: 5 RF: 0 azithromycin [Zithromax] 500 mg tablet 500 mg PO DAILY 5 Days Qty: 5 RF: 0 Continued Contrave 8-90 mg tablet extended release 2 tab PO BID Qty: 60 RF: 2 sulfamethoxazole-trimethoprim [Bactrim DS] 800-160 mg tablet 1 tab PO BID Qty: 14 RF: 1 multivitamin [Daily Vitamin] 1 EACH tablet 1 ea PO DAILY RF: 0 calcium citrate-vitamin D3 [Calcitrate-Vitamin D] 1 EACH tablet 2 ea PO BID RF: 0 Vitamin B 12 500 mg PO DAILY Qty: 1 RF: 0 nystatin 60 GM powder 1 aby Topical BID PRNQty: 60 RF: 1 omega-3 fatty acids-fish oil [Fish Oil] 1 EACH capsule 2,000 ea PO DAILY RF: 0 cholecalciferol (vitamin D3) 1,000 UNIT tablet 1,000 unit PO DAILY RF: 0 clotrimazole 45 GM cream 1 aby Topical BID Qty: 45 RF: 1 acetaminophen [Mapap Extra Strength] 500 mg Tablet 1,000 mg PO TID Qty: 90 RF: 3 Osteo Bi-Flex Triple Strength 1 EACH tablet 2 ea PO DAILY RF: 0 Discharge Instructions Instructions: Acute Bronchitis (ED) Additional Instructions: Use the albuterol inhaler as needed and directed for any shortness of breath or wheezing. Take the steroids until finished. If you have no improvement or worsening of symptoms in the next week, you may start the antibiotics. Follow-up with your primary care doctor in 1 week for reevaluation. Return immediately to emergency department any worsening or new concerning symptoms. Discharge Data Discharge Date/Time-TO BE ENTERED AT DEPARTURE: 06/15/18 13:11 Discharge Physician: Lissette Hagan Medical Decision Making 63-year-old female presents with cough with yellow green sputum, shortness of breath, sore throat, body aches, fatigue, rhinorrhea and chills for the past 3 days. 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 She did receive the flu shot this year. Rate mildly tachycardic. Normal oxygen saturation, respiratory rate and afebrile. Patient appears nontoxic and in no acute distress. Intermittent co ughing with congestion in room. She has minimal rhonchi with wheezing and right lower lobe. No meningeal signs. Differential diagnosis includes acute bronchitis, influenza, strep pharyngitis, pneumonia. Will give an albuterol treatment, p.o. steroids, rapid influenza, rapid strep and chest x-ray. 1245 --rapid strep, influenza and chest x-ray negative. Patient states she feels better after breathing treatment and steroids and feels good to go home. Will send home with an albuterol inhaler as well as a prescription for steroids. Instructed that her symptoms are likely viral in nature and to continue the steroids until finished. Also instructed to use symptomatic treatment, increase fluids and get plenty of rest. If her symptoms do not improve or worsen over the next 3 days, she may start the antibiotics. She is instructed to follow-up with a primary care doctor for reevaluation and return here if worse. Medical Records Medical records reviewed: Yes I reviewed the patient's medical records. Imaging Data Radiologic Study: Radiologist's impression: XR Chest, 2 Views EXAM DATE/TIME: 06/15/2018 11:57 AM FINDINGS: Lungs: Hyperaerated lungs consistent with moderate COPD . Pleural space: Unremarkable. No pleural effusion. No pneumothorax. Heart/Mediastinum: Unremarkable. No cardiomegaly. Vasculature: Calcification of the thoracic aorta and/or great vessels consistent with atherosclerotic vessel disease. Bones/joints: Mild thoracic spondylosis. Low density bone consistent with osteopenia/osteoporosis. IMPRESSION: Hyperaerated lungs consistent with moderate COPD . Lab Data Lab results reviewed: Yes I reviewed the patient's lab results. Rapid strep negative. Influenza negative. HPI General Mode of arrival: ambulatory . Date/Time Provider Initiated Documentation: 06/15/18 11:27 . Limitations to Documentation: no limitations . Information obtained by: patient . HPI Narrative: Patient is a 63-year-old female presents with cough with yellow sputum, shortness of breath, sore throat, body aches, chills and fatigue for the past 3 days. Patient states the cough and shortness of breath is bothering her the most. She also admits to some runny nose. She states she has been drinking normally but eating less than usual. She denies any known fever, vomiting, diarrhea, chest pain. She states she did receive the flu shot this year. She states she was on Bactrim 3 weeks ago for an abscess. She states she has been taking NyQuil without relief. Related Data Home Medications Medication Instructions Recorded Confirmed multivitamin [Daily Vitamin] 1 ea PO DAILY 12/24/13 06/15/18 calcium citrate-vitamin D3 2 ea PO BID 12/30/13 06/15/18 [Calcitrate-Vitamin D] Vitamin B 12 500 mg PO DAILY #1 02/09/14 06/15/18 nystatin 1 aby TOPICAL BID PRN #60 g 07/10/16 06/15/18 Osteo Bi-Flex Triple Strength 2 ea PO DAILY 07/22/16 06/15/18 omega-3 fatty acids-fish oil [Fish 2,000 ea PO DAILY 10/30/16 06/15/18 Oil] cholecalciferol (vitamin D3) 1,000 unit PO DAILY 06/25/17 06/15/18 clotrimazole 1 aby TOPICAL BID #45 g 08/14/17 06/15/18 acetaminophen [Mapap Extra 1,000 mg PO TID #90 tab 02/02/18 06/15/18 Strength] naltrexone 8 mg-bupropion 90 mg 2 tab PO BID #60 tab 05/20/18 06/15/18 tablet,extended release sulfamethoxazole 800 1 tab PO BID #14 tab 05/22/18 06/15/18 mg-trimethoprim 160 mg tablet azithromycin [Zithromax] 500 mg PO DAILY 5 Days #5 tab 06/15/18 prednisone 50 mg PO DAILY 5 Days #5 tab 06/15/18 Previous Rx's Medication Instructions Recorded clotrimazole 1 aby TOPICAL BID #45 g 08/14/17 acetaminophen [Mapap Extra 1,000 mg PO TID #90 tab 02/02/18 Strength] naltrexone 8 mg-bupropion 90 mg 2 tab PO BID #60 tab 05/20/18 tablet,extended release sulfamethoxazole 800 1 tab PO BID #14 tab 05/22/18 mg-trimethoprim 160 mg tablet azithromycin [Zithromax] 500 mg PO DAILY 5 Days #5 tab 06/15/18 prednisone 50 mg PO DAILY 5 Days #5 tab 06/15/18 Allergies Allergy/AdvReac Type Severity Reaction Status Date / Time codeine AdvReac Intermediate Hyper, Unverified 06/15/18 11:26 kept awake all night hydrocodone bitartrate AdvReac Intermediate Hyper,antsy Unverified 06/15/18 11:26 [From Vicodin] General Stated Complaint: RespSymp LIBIA: 4 Review of Systems Review of Systems All systems reviewed & are unremarkable except as noted in HPI and below Constitutional Reports as per HPI, Reports body ache(s), Reports chills, Reports fatigue and Denies fever(s) Eyes Denies blurry vision ENT Denies dizziness, Reports sore throat and Denies throat swelling Cardiovascular Denies chest pain and Reports dyspnea Respiratory Reports cough and Reports dyspnea Gastrointestinal Denies abdominal pain, Denies diarrhea and Denies vomiting Genitourinary Denies hematuria and Denies dysuria Musculoskeletal Denies back pain and Denies numbness Integumentary/Breasts Denies lesions and Denies rash Neurologic Denies dizziness, Denies focal weakness and Denies numbness Endocrine Reports fatigue Allergic/Immunologic Denies throat swelling [facility] Medical History Obesity (Chronic) Anxiety and depression (Chronic) Intertrigo (Chronic 09/24/17) Migraine (Chronic 09/21/11) Nasal vestibulitis (Resolved 08/26/15) Peripheral venous insufficiency (Chronic 09/21/11) Rosacea (Chronic 09/21/11) Vitamin D deficiency (Chronic 06/25/17) Primary osteoarthritis of both knees (Resolved) Surgical History Cholecystectomy (Inactive 03/07/13) Status post gastroplasty (Inactive 12/19/13) H/O colonoscopy (Inactive 10/02/07) H/O vein stripping (Inactive ~08/21/00) S/P tonsillectomy and adenoidectomy (Inactive) S/P tubal ligation (Inactive ~04/1991) Status post total knee replacement, bilateral (Chronic) H/O bariatric surgery (Chronic) H/O arthroscopy of knee (Resolved) Family History Mother Diabetes Hypertension Hyperlipidemia Coronary heart disease Stroke Breast cancer Father COPD (chronic obstructive pulmonary disease) Bladder cancer Coronary heart disease Hypertension Hyperlipidemia Sister Obesity Brother Obesity Social History adopted: No foster care: No household members: spouse marital status details: Rupert Elias number of children: 1 number of grandchildren: 0 highest education level completed: Associate degree: academic program service: No current occupational status: employed 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[employer] [place] pets and animals: No Hx Recent Travel: No what type of physical activity do you participate in: none Smoking and Tabacco status: Never alcohol intake: current alcohol intake frequency: holidays/special occasions only substance use type: does not use fay/religious: Moravian Seatbelt use: always Drives intoxicated or rides with intoxicated auto crane driver: No working smoke detector in home: Yes fire extinguisher in home: Yes carbon monox detector in home: Yes firearms in home: Yes firearms unloaded and locked: No additional social history: History History Para 1 Hx # Term Pregnancies Multiple births Hx # Pregnancies Ectopic pregnancies AB induced Hx Number of Living Children AB spontaneous Exam Const General: cooperative and healthy appearing Orientation: alert and awake HENMT Head: normal to inspection Ears: hearing grossly normal bilaterally, external ears normal and TM's normal bilaterally General nose exam: external nose normal Face and sinus: normal facial exam Mouth: oral mucosae normal Teeth and gingiva: dentition normal Throat: uvula midline and posterior oropharynx abnormal erythema (minimal); no edema and no exudates Eyes General: appearance normal, both eyes and all related structures Eyelids: eyelids normal EOM: EOM intact bilaterally Neck Neck: normal visual inspection Lymphatic: no lymphadenopathy noted Chest Chest: normal inspection of the chest Resp Effort & Inspection: normal respiratory effort and able to speak in complete sentences Auscultation: rhonchi and wheezes right lower Cardio Rate: regular rate Rhythm: regular rhythm GI Inspection: normal to inspection Palpation: soft, not firm, no guarding, no hepatosplenomegaly, no masses and nontender Auscultation: normal bowel sounds Skin General skin exam: no rashes or lesions noted Neuro General: alert and awake Cognition: normal cognition Speech: speech normal Gait: normal gait Motor: muscle tone normal throughout Sensory Exam: no sensory deficits noted Extrem General: normal to inspection, full ROM and no edema Psych Appearance: grossly normal Mental Status: mental status grossly normal Speech and Movement: speech and movement normal Affect: normal affect Thought Process: normal Course Vital Signs Temperature 98.6 F 06/15/18 11:24 Pulse 106 H 06/15/18 11:24 Respiratory Rate 16 06/15/18 11:24 Blood Pressure 143/73 H 06/15/18 11:24 Pulse Oximetry 95 06/15/18 11:24 Temperature 98.6 F 06/15/18 11:24 Temperature Source Skin 06/15/18 11:24 Pulse 106 H 06/15/18 11:24 Respiratory Rate 16 06/15/18 11:24 Respiratory Effort Non-Labored 06/15/18 11:24 Blood Pressure 143/73 H 06/15/18 11:24 Blood Pressure Position Sitting 06/15/18 11:24 Pulse Oximetry 95 06/15/18 11:24 Oxygen Delivery Method Room Air 06/15/18 11:24 Oxygen Flow Rate 0 06/15/18 11:24 Pain Level 0 06/15/18 11:24
--- NOTE | 2018-06-15 11:48 | DI.RAD_ITS ---
SYMPTOM/DIAGNOSIS: COUGH, SOB, ? PNEUMONIA PA AND LATERAL CHEST: Comparison is made with 07/22/16. The cardiac and mediastinal contours have a normal appearance. The lungs are well inflated and clear. No infiltrate or effusion is seen. IMPRESSION: Negative chest xray.
[2018-06-15] MEDS: predniSONE 20 MG TAB 60 MG PO (11:51)
[2018-06-15 12:05] VITALS: RESP 4
[2018-06-15] MEDS: Albuterol/Ipratropium 3 ML UPD VIAL UPD (12:05)
--- NOTE | 2018-06-15 12:05 | DI.VRAD_ITS ---
EXAM: XR Chest, 2 Views EXAM DATE/TIME: 06/15/2018 11:57 AM CLINICAL HISTORY: 63 years old, female; Signs and symptoms; Cough TECHNIQUE: XR of the chest, 2 views. COMPARISON: SC CHEST 2 VIEWS PA,LAT 07/22/2016 9:07 PM FINDINGS: Lungs: Hyperaerated lungs consistent with moderate COPD . Pleural space: Unremarkable. No pleural effusion. No pneumothorax. Heart/Mediastinum: Unremarkable. No cardiomegaly. Vasculature: Calcification of the thoracic aorta and/or great vessels consistent with atherosclerotic vessel disease. Bones/joints: Mild thoracic spondylosis. Low density bone consistent with osteopenia/osteoporosis. IMPRESSION: Hyperaerated lungs consistent with moderate COPD . Dictated and Authenticated by: Arsenio Palencia MD. Ordering:RICHARDSON Mclaughlin MD
[2018-06-15] MEDS: Albuterol HFA 8 GM 60 PUFF INH IH (13:09)
== END 2018-06-15 13:11 | disposition home or self-care (01) ==
PROVIDERS: Emergency Provider Physician Assistant; PCP Nurse Practitioner Adult Health
DX: J20.9 Acute bronchitis, unspecified (principal)
CPT/HCPCS: 87449; 87880; 94640; 99283; 71046; 87081; J7512; J7620

== ENCOUNTER 2018-07-25 08:29 | Outpatient (CLI) | payer OTHER, SELFPAY ==
[2018-07-25 08:49] LABS: HCT 40.9 % (36.0-46.0); HGB 13.6 g/dL (12.0-15.5); Mean Corp. HGB Concentration 33.3 g/dL (32.0-36.0); Mean Corpuscular Hemoglobin 27.9 pg (27.0-33.0); Mean Corpuscular Volume 83.8 fL (80-95); Mean Platelet Volume 9.1 fL (8.0-11.0); Platelet Count 195 x1000/uL (130-400); RBC 4.88 m/cumm (4.00-5.20); RBC Distribution Width 13.9 % (11.7-14.6); White Blood Cell Count 6.49 k/cumm (4.4-10.8)
[2018-07-25 10:08] LABS: Iron 133 ug/dL (50-175); Total Iron Binding Capacity 350 ug/dL (250-450); Transferrin Sat 38 % (15-50)
[2018-07-25 10:26] LABS: ALT 18 U/L (12-78); AST 17 U/L (15-37); Albumin 3.6 g/dL (3.4-5.0); Alkaline Phosphatase 92 U/L (46-116); Anion Gap 7.9 mmol/L (3-11); BUN 15 mg/dL (7-18); Bilirubin, Total 0.7 mg/dL (0.2-1.0); CO2 29.1 mmol/L (21.0-32.0); Calcium 9.2 mg/dL (8.5-10.1); Chloride 104 mmol/L (98-107); Ferritin 25 ng/mL (8-388); Glucose 104 mg/dL (70-100); Potassium 4.4 mmol/L (3.5-5.1); Sodium 141 mmol/L (136-145); Total Protein 7.1 g/dL (6.4-8.2); Vitamin B12 1550 pg/mL (193-986)
[2018-07-25 10:30] LABS: Vitamin D 25 Total 51.8 ng/ml (30-100)
== END 2018-07-25 08:49 ==
PROVIDERS: PCP Nurse Practitioner Adult Health; Visit Provider Nurse Practitioner Family
DX: E83.10 Disorder of iron metabolism, unspecified (principal); K90.9 Intestinal malabsorption, unspecified; R53.83 Other fatigue; Z98.84 Bariatric surgery status; E55.9 Vitamin D deficiency, unspecified
CPT/HCPCS: 36415; 80053; 82306; 85027; 82607; 82728; 83540; 83550

== ENCOUNTER 2018-09-05 09:47 | Outpatient (CLI) | payer OTHER, SELFPAY ==
[2018-09-05 10:43] LABS: Hemoglobin A1C 5.6 % (4.5-6.2)
== END 2018-09-05 10:07 ==
PROVIDERS: PCP Nurse Practitioner Adult Health; Visit Provider Nurse Practitioner Adult Health
DX: E66.9 Obesity, unspecified (principal); R73.09 Other abnormal glucose
CPT/HCPCS: 36415; 83036

== ENCOUNTER 2018-10-28 12:34 | Outpatient (REF) | payer OTHER, SELFPAY | END 2018-10-28 12:54 | LOC: LBN 12:34 | PROVIDERS: PCP Nurse Practitioner Adult Health; Visit Provider Nurse Practitioner Adult Health | DX: L02.221 Furuncle of abdominal wall (principal) | CPT/HCPCS: 87077; 87070; 87186; 87205 ==

== ENCOUNTER 2018-12-09 01:30 | Outpatient (CLI) | payer OTHER, SELFPAY ==
--- NOTE | 2018-12-09 17:20 | DI.MAMMO_ITS ---
SYMPTOM/DIAGNOSIS: BREAST CANCER SCREENING Z12.31 MAMMOGRAM: 12/09 Mammograms were interpreted according to the usual protocol including computer analysis with CAD system, tomosynthesis and C view imaging. The breasts are of moderate density with fairly symmetrical distribution of fibroglandular tissue. No dominant mass or clumped microcalcification is identified in either breast. A group of benign appearing calcifications are noted in the lateral aspect of the right breast, unchanged from previous examinations including November 2015 and April 2017. CONCLUSION: No specific evidence of malignancy at this time. Routine screening examinations are suggested at yearly intervals due to the family history of breast carcinoma. Category 1, breast density category B. MQSA ASSESSMENT OF FINDINGS: Negative. Category 1. Patient will receive a letter notifying them of these results. BI-RADS category B. There are scattered areas of fibroglandular density.
== END 2018-12-09 01:50 ==
PROVIDERS: PCP Nurse Practitioner Adult Health; Visit Provider Nurse Practitioner Adult Health
DX: Z12.31 Encounter for screening mammogram for malignant neoplasm of breast (principal); Z80.3 Family history of malignant neoplasm of breast
CPT/HCPCS: 77063; 77067

== ENCOUNTER 2019-01-30 12:41 | Outpatient (CLI) | payer OTHER, SELFPAY ==
--- NOTE | 2019-01-30 09:07 | DI.RAD_ITS ---
EXAM: XR KNEE RT 2V AP,LAT INDICATION: ANNUAL F/U. COMPARISON: XR KNEE LT 2V AP,LAT from 01/30/2019 TECHNIQUE: 2D digital imaging was performed. FINDINGS: Two views were obtained and show total knee joint replacement in position. Components appear well se ated. No other significant bony abnormality seen. IMPRESSION:
--- NOTE | 2019-01-30 09:07 | DI.RAD_ITS ---
EXAM: XR KNEE LT 2V AP,LAT INDICATION: ANNUAL F/U. COMPARISON: XR knee RT 1V from 02/18/2018 TECHNIQUE: 2D digital imaging was performed. FINDINGS: Two views were obtained and show total knee joint replacement in position. Components appear well se ated. No other significant bony abnormality seen. IMPRESSION:
== END 2019-01-30 13:01 ==
PROVIDERS: PCP Nurse Practitioner Adult Health; Visit Provider Student in an Organized Health Care Education/Training Program
DX: Z96.653 Presence of artificial knee joint, bilateral (principal); Z47.1 Aftercare following joint replacement surgery
CPT/HCPCS: 73560

== ENCOUNTER 2019-06-22 13:16 | Emergency (ER) | payer OTHER, SELFPAY ==
[2019-06-22 13:18] VITALS: BP 161/95; PULSE 84; RESP 18; TEMP 36.2; O2SAT 98
--- NOTE | 2019-06-22 13:45 | DI.RAD_ITS ---
EXAM: Chest xray CLINICAL HISTORY: Epigastric pain TECHNIQUE: 2D digital imaging was performed. COMPARISON: XR CHEST 2V PA LATERAL from 06/15/2018 FINDINGS: The cardiac and mediastinal contours have a normal appearance. The lungs are well inflated and clear . No infiltrate, effusion or pneumothorax is seen. No spine or rib fracture is identified. IMPRESSION: Negative chest x-ray.
--- NOTE | 2019-06-22 13:58 | ED.GENADUL_ITS ---
Discharge Plan Disposition Patient Disposition: HOME Discharge Details Chief Complaint: GenMedical Clinical Impression: Abdominal pain, Bone lesion Primary Care Provider: Gladis Patricio ED Provider: Jeffrey Hernandez Home Meds and New Rx's Prescriptions: New omeprazole 20 mg capsule,delayed release(DR/EC) 20 mg PO DAILY Qty: 30 RF: 1 Continued mupirocin 2 % ointment 1 applic TP BID PRN (Reason: boil) Qty: 30 RF: 0 bupropion HCl 150 mg tablet extended release 24 hr 150 mg PO QAM Qty: 90 RF: 3 cyanocobalamin (vitamin B-12) 1,000 mcg capsule 1,000 mcg PO DAILY RF: 0 multivitamin [Daily Vitamin] 1 EACH tablet 1 ea PO DAILY RF: 0 calcium citrate-vitamin D3 [Calcitrate-Vitamin D] 1 EACH tablet 2 ea PO BID RF: 0 Fish Oil 1 EACH capsule 2,000 ea PO DAILY RF: 0 cholecalciferol (vitamin D3) 1,000 UNIT tablet 1,000 unit PO DAILY RF: 0 clotrimazole 45 GM cream 1 aby Topical BID Qty: 45 RF: 1 bupropion HCl 300 mg tablet extended release 24 hr 300 mg PO QAM Qty: 90 RF: 3 acetaminophen [Mapap Extra Strength] 500 mg Tablet 1,000 mg PO TID Qty: 90 RF: 3 Discharge Instructions Additional Instructions: Your x-ray revealed a bony lesion, likely enchondroma versus bone infarct. Please be sure to discuss this with your primary care physician. You should have a stress test performed as soon as possible and ideally within the next 72 hours. Please call to schedule this. Please contact your primary care physician to arrange follow-up. Call tomorrow. Return to the ER for any worsening or new concerning symptoms. Referrals: Gladis Patricio [facility] [Primary Care Provider] - Discharge Data Discharge Date/Time-TO BE ENTERED AT DEPARTURE: 06/22/19 18:40 Medical Decision Making <TODD Yusuf - Last Filed: 06/22/19 16:11> 64-year-old female presents to the ER with epigastric discomfort, nausea, vomiting, bilateral arm heaviness. She appears well, nontoxic, abdomen is soft, nonsurgical in nature. This certainly appears to be more GI related than pulmonary and/or cardiovascular. Low suspicion for ACS. Will give a GI cocktail, obtain routine laboratory values including EKG and troponin and reassess. Differential includes but not excluded to gastritis, GERD, peptic ulcer disease, complication of her bypass, ACS, hepatitis, etc. Upon reevaluation patient reports that her symptoms have greatly improved with a GI cocktail. She reports that symptoms are stomach are now a 1 out of 10. We noted that she did have some small ketones in her urine, will give a single liter of IV fluid. Patient has received roughly 500 cc, upon reevaluation she reports that her abdomen is a 0 out of 10 and now her bilateral upper extremit ies only have the slightest sense of heaviness. She appears well, nontoxic, no acute distress. Remains neurologically intact. Initial work-up here in the ER is unremarkable. She is agreeable to await a repeat troponin and EKG at 3 hours. Medical Records Medical records reviewed: Yes I reviewed the patient's medical records. Imaging Data Radiologic Study: Attestation: I personally reviewed and interpreted this imaging study as follows: Imaging: X-Ray My impression: X-ray initially read by me as no acute abnormality. Later confirmed by virtual radiology Lab Data Lab results reviewed: Yes I reviewed the patient's lab results. Lab results narrative: Laboratory Tests Range/Units 06/22/19 06/22/19 06/22/19 13:35 13:35 14:03 WBC (4.4-10.8) k/cumm 6.78 RBC (4.00-5.20) m/cumm 4.98 Hgb (12.0-15.5) g/dL 14.7 Hct (36.0-46.0) % 43.2 MCV (80-95) fL 86.7 MCH (27.0-33.0) pg 29.5 MCHC (32.0-36.0) g/dL 34.0 RDW (11.7-14.6) % 13.0 Plt Count (130-400) x1000/uL 178 MPV (8.0-11.0) fL 9.7 Immature Gran % % 0.1 Neutrophils % 61.2 Lymphocytes % 27.7 Monocytes % 8.0 Eosinophils % 2.7 Basophils % 0.3 Absolute Neutrophils (1.2-6.7) k/cumm 4.15 Absolute Lymphocytes (1.2-3.4) k/cumm 1.88 Absolute Monocytes (0.11-0.7) k/cumm 0.54 Absolute Eosinophils (0.0-0.7) k/cumm 0.18 Absolute Basophils (0.0-0.2) k/cumm 0.02 Sodium (136-145) mmol/L 141 Potassium (3.5-5.1) mmol/L 4.0 Chloride (98-107) mmol/L 104 Carbon Dioxide (21.0-32.0) mmol/L 29.2 Anion Gap (3-11) mmol/L 7.8 BUN (7-18) mg/dL 19 H Creatinine (0.55-1.02) mg/dL 0.75 Estimated GFR/1.73 m2 (mL/min/1.73m2) >= 60.00 Glucose (74-106) mg/dL 93 Calcium (8.5-10.1) mg/dL 9.2 Total Bilirubin (0.2-1.0) mg/dL 0.5 AST (15-37) U/L 20 ALT (14-59) U/L 22 Alkaline Phosphatase (46-116) U/L 78 Troponin I (<0.06) ng/Ml < 0.05 Total Protein (6.4-8.2) g/dL 7.4 Albumin (3.4-5.0) g/dL 3.9 Lipase (73-393) U/L 367 Urine Color (Yellow) Yellow Urine Clarity (Clear) Sl cloudy Urine pH (5-8) 6.0 Ur Specific [place] (1.005-1.025) >= 1.030 H Urine Protein (Negative) mg/dL Negative Urine Ketones (Negative) mg/dL Trace H Urine Blood (Negative) Trace-lysed H Urine Nitrite (Negative) Negative Urine Bilirubin (Negative) Negative Urine Urobilinogen (Up TO 0.2) EU/dL 0.2 Ur Leukocyte Esterase (Negative) Negative Urine RBC (0-2) HPF 3-5 H Urine WBC (0-5) HPF 0-2 Ur Epithelial Cells (Negative) HPF Moderate Urine Crystals (Negative) HPF Negative Urine Bacteria (Negative) HPF Rare Urine Casts (Negative) LPF Negative Urine Mucus (Negative) Trace Ur Culture Indicated? No Urine Glucose (Negative) mg/dL Negative ECG Data Attestation: I personally reviewed and interpreted this ECG (s) as follows: Interpretation: EKG performed at 1331. Reveals a sinus rhythm, ventricular rate 69. There are no acute ST elevation or depression segments. <Jeffrey Hernandez MD - Last Filed: 06/22/19 23:16> -- Care signed out by TODD Kelly -please see his documentation regarding initial ED presentation and course. Patient apparently had significant improvement in discomfort with GI cocktail. Plan at signout was to follow-up on delta troponin, repeat ECG, and reassess the patient for disposition. -- Chest x-ray was interpreted by radiology: FINDINGS: Lungs: No lung consolidation or pulmonary edema. Pleural space: No pleural effusion or pneumothorax. Heart/Mediastinum: The cardiac silhouette is not enlarged. The mediastinal contours are normal. Bones/joints: Multilevel disc degeneration in the thoracic spine. Enchondroma or bone infarct in the proximal right humeral diaphysis. Other findings: No gross pneumoperitoneum. IMPRESSION: No acute abnormality. Patient reassessed and remains pain-free and asymptomatic. Abdominal exam benign. Labs reviewed: Repeat delta troponin was negative and unchanged from prior. Screening ECG was reviewed and interpreted by me: Sinus rhythm 68 bpm, normal axis, no STEMI, nondiagnostic, no significant change from prior. All results were discussed with the patient. I specifically pointed out bony lesion noted on chest x-ray. Patient was instructed to follow-up with her primary care physician. Patient understands importance of timely follow-up. I recommended she have a cardiac stress test ideally performed within the next 72 hours. Order form referral was provided to the patient. Plan to start omeprazole. I provided initial dose here and will continue prescription. Disposition decision was made weighing the risks and benefits of hospitalization versus outpatient treatment, the risk for further decompensation, and the patient's wishes. The patient was stable and requested discharge. Prior to discharge, my usual a nd customary return precautions were reviewed with the patient - this included follow-up instructions and reason to return to the emergency department if condition worsens, does not improve as expected, or other new concerns arise. HPI <TODD Yusuf - Last Filed: 06/22/19 16:11> General Mode of arrival: ambulatory . Date/Time Provider Initiated Documentation: 06/22/19 13:17 . Limitations to Documentation: no limitations . Information obtained by: patient and family . HPI Narrative: This is a 64-year-old female history of vitamin D deficiency, peripheral venous insufficiency, migraines, anxiety, depression, obesity, gastric bypass 2011, presenting with epigastric discomfort, nausea, vomiting that began on Sunday afternoon. Denies bad food exposure, sick contact, travel. She reports that the vomiting resolved on Sunday however she has had fairly consistent pain she describes as a 6 or 7 out of 10 and intermittent nausea since that time. Denies radiation of her pain into her back. Denies fever, chest pain, shortness of breath, diarrhea, constipation, dysuria or hematuria. Patient states that [id number] Rolaids have helped resolve her symptoms. She also describes a heaviness to both of her arms. Denies any pain, numbness, tingling, weakness to her arms. Does not feel warm or cold. She denies any headache or neck pain. She does have a hard time describing exactly what she is feeling. She admits that she can move her arms fully, her strength feels normal but they just do not feel right. She describes this sensation across both of her arms diffusely. She denies any cardiac or pulmonary disease. Has never had a stress test. Patient status post cholecystectomy Related Data Home Medications Medication Instructions Recorded Confirmed multivitamin [Daily Vitamin] 1 ea PO DAILY 12/24/13 06/22/19 calcium citrate-vitamin D3 2 ea PO BID 12/30/13 06/22/19 [Calcitrate-Vitamin D] Fish Oil 2,000 ea PO DAILY 10/30/16 06/22/19 cholecalciferol (vitamin D3) 1,000 unit PO DAILY 06/25/17 06/22/19 clotrimazole 1 aby TOPICAL BID #45 g 08/14/17 06/22/19 acetaminophen [Mapap Extra 1,000 mg PO TID #90 tab 02/02/18 06/22/19 Strength] mupirocin 2 % topical ointment 1 applic TP BID PRN #30 gm 10/28/18 06/22/19 bupropion HCl 300 mg 24 hr tablet, 300 mg PO QAM #90 tab 12/06/18 06/22/19 extended release bupropion HCl 150 mg 24 hr tablet, 150 mg PO QAM #90 tab 01/09/19 06/22/19 extended release cyanocobalamin (vitamin B-12) 1,000 mcg PO DAILY 05/02/19 06/22/19 1,000 mcg capsule omeprazole 20 mg PO DAILY #30 cap 06/22/19 Previous Rx's Medication Instructions Recorded clotrimazole 1 aby TOPICAL BID #45 g 08/14/17 acetaminophen [Mapap Extra 1,000 mg PO TID #90 tab 02/02/18 Strength] mupirocin 2 % topical ointment 1 applic TP BID PRN #30 gm 10/28/18 bupropion HCl 300 mg 24 hr tablet, 300 mg PO QAM #90 tab 12/06/18 extended release bupropion HCl 150 mg 24 hr tablet, 150 mg PO QAM #90 tab 01/09/19 extended release omeprazole 20 mg PO DAILY #30 cap 06/22/19 Allergies Allergy/AdvReac Type Severity Reaction Status Date / Time codeine AdvReac Intermediate Hyper, Verified 06/22/19 13:23 kept awake all night hydrocodone bitartrate AdvReac Intermediate Hyper,antsy Verified 06/22/19 13:23 [From Vicodin] General Stated Complaint: GenMedical LIBIA: 3 Review of Systems <TODD Yusuf - Last Filed: 06/22/19 16:11> Constitutional Constitutional: Denies chills, Denies fatigue, Denies fever(s), Denies headach e(s) and Denies weakness Eyes Eyes: Denies change in vision ENT Ears, Nose, Mouth, and Throat: Denies headache(s) and Denies sore throat Cardiovascular Cardiovascular: Denies chest pain and Denies dyspnea Respiratory Respiratory: Denies cough and Denies dyspnea Gastrointestinal Gastrointestinal: Reports abdominal pain, Denies diarrhea, Reports nausea and Reports vomiting Genitourinary Genitourinary: Denies dysuria Musculoskeletal Musculoskeletal: Denies myalgias, Denies numbness and Denies tingling Integumentary/Breasts Skin/Breast: Denies rash Neurologic Neurologic: Denies headache(s), Denies numbness, Denies tingling and Denies weakness Endocrine Endocrine: Denies fatigue PFS <TODD Yusuf - Last Filed: 06/22/19 16:11> Medical History Anxiety and depression (Chronic) Intertrigo (Chronic 09/24/17) Migraine (Chronic 09/21/11) Nasal vestibulitis (Resolved 08/26/15) Obesity (Chronic) s/p gastric surgery [facility] 2013 [facility] Nutrition Peripheral venous insufficiency (Chronic 09/21/11) peripheral edema, prn hctz Primary osteoarthritis of both knees (Resolved) s/p b/l TKA 01/2018 Rosacea (Chronic 09/21/11) Vitamin D deficiency (Chronic 06/25/17) Surgical History Cholecystectomy (Inactive 03/07/13) H/O arthroscopy of knee (Resolved) Dreisbach, right knee arthroscopy, chondroplasty of both the patella and medial tibial plateau and femoral condyle with microfracture. July and December 2011 both Dreisbach. (Reviewed by Kevin BROOKS 01/29/18) H/O bariatric surgery (Inactive) [facility] 11/2013 H/O colonoscopy (Inactive 10/02/07) H/O vein stripping (Inactive ~08/21/00) Dr. Mayda HEAD S/P tonsillectomy and adenoidectomy (Inactive) S/P tubal ligation (Inactive ~04/1991) Status post total knee replacement, bilateral (Acute) DOS: 01/29/18 Dr. Zafar Family History Mother , 05/06/16 age 83 multiple hosp for resp complication/pneumonia Diabetes Hypertension Hyperlipidemia Coronary heart disease CABG x4 in 60's Stroke at age 71 Breast cancer dx mid 70's Father , age 80 COPD (chronic obstructive pulmonary disease) Bladder cancer Coronary heart disease stented Hypertension Hyperlipidemia Sister Obesity Brother Obesity Social History Smoking/Tobacco Use Status: Never Alcohol Intake: current Alcohol Intake frequency: holidays/special occasions only Drug use: Never Substance use type: does not use Adopted: No Foster care: No Household members: spouse Number of Children: 1 number of grandchildren: 0 current occupation: [employer] Pets and animals: No What type of physical activity do you participate in: none Karmen/Temple: Buddhist Seatbelt use: always Drive intox or ride w/intox lift driver: No Working smoke detector in home: Yes Fire extinguisher in home: Yes Carbon monox detector in home: Yes Firearms in home: Yes Firearms unloaded and locked: No Do you feel safe at home: Yes Do you feel safe in your relationship?: Yes Additional Social history: History History Para 1 Hx # Term Pregnancies Multiple births Hx # Pregnancies Ectopic pregnancies AB induced Hx Number of Living Children AB spontaneous Exam <TODD Yusuf - Last Filed: 06/22/19 16:11> Const General: cooperative, healthy appearing, comfortable and no acute distress Orientation: alert and awake HENMT Head: normal to inspection, normocephalic and atraumatic Mouth: moist mucous membranes Throat: posterior oropharynx normal Eyes Conjunctivae: conjunctivae normal Sclera: sclerae normal Cornea: corneas normal Pupils: PERRL EOM: EOM intact bilaterally Direct ophthalmoscopy: normal light reflex Neck Neck: normal visual inspection, full ROM, no meningeal signs, trachea midline and supple Resp Effort & Inspection: normal respiratory effort and able to speak in complete sentences Auscultation: clear to auscultation bilaterally Cardio Rate: regular rate Rhythm: regular rhythm GI Inspection: normal to inspection Palpation: soft, not firm, no guarding, not rigid and tender (Mild discomfort to the epigastric region with moderate palpation) Auscultation: normal bowel sounds Back/Spine/Pelvis Back: No back tenderness Skin General skin exam: no rashes or lesions noted Neuro General: alert, awake, oriented x3, moves all extremities and no focal motor deficits Cognition: normal cognition Gait: normal gait Motor: muscle tone normal throughout, no pronator drift, no movement abnormalities noted and no fasciculations Sensory Exam: no sensory deficits noted Coordination: [id number] test normal and rapid alternating movement UE normal Psych Appearance: grossly normal Mental Status: mental status grossly normal Course <TODD Yusuf - Last Filed: 06/22/19 16:11> Vital Signs Vital signs: Vital Signs Temperature 36.2 C L 06/22/19 13:18 Pulse 84 06/22/19 13:18 Respiratory Rate 18 06/22/19 13:18 Blood Pressure 161/95 H 06/22/19 13:18 Pulse Oximetry 98 06/22/19 13:18 Temperature 36.2 C L 06/22/19 13:18 Temperature Source Temporal Artery Scan 06/22/19 13:18 Pulse 84 06/22/19 13:18 Respiratory Rate 18 06/22/19 13:18 Respiratory Effort Non-Labored 06/22/19 13:24 Blood Pressure 161/95 H 06/22/19 13:18 Blood Pressure Position Sitting 06/22/19 13:18 Pulse Oximetry 98 06/22/19 13:18 Oxygen Delivery Method Room Air 06/22/19 13:18 Oxygen Flow Rate 0 06/22/19 13:18 Pain Level 7 06/22/19 13:18 Sign Out <TODD Yusuf - Last Filed: 06/22/19 16:11> Sign Out Data: Sign Out Comment: Pending repeat EKG, troponin, reevaluation and final disposition. Last updated by Jonny Kelly PA at 06/22/19 16:01
[2019-06-22 14:08] VITALS: RESP 16
[2019-06-22 14:09] LABS: Abs Immature Grans 0.01 k/cumm (0.0-0.09); Absolute Basophil Count 0.02 k/cumm (0.0-0.2); Absolute Eosinophil Count 0.18 k/cumm (0.0-0.7); Absolute Lymphocyte Count 1.88 k/cumm (1.2-3.4); Absolute Monocyte Count 0.54 k/cumm (0.11-0.7); Absolute Neutrophil Count 4.15 k/cumm (1.2-6.7); Basophils % 0.3; Eosinophils % 2.7; HCT 43.2 % (36.0-46.0); HGB 14.7 g/dL (12.0-15.5); Immature Grans % 0.1 %; Lymphocytes % 27.7; Mean Corpuscular Hemoglobin 29.5 pg (27.0-33.0); Mean Corpuscular Volume 86.7 fL (80-95); Mean Platelet Volume 9.7 fL (8.0-11.0); Neutrophils % 61.2; Platelet Count 178 x1000/uL (130-400); RBC 4.98 m/cumm (4.00-5.20); White Blood Cell Count 6.78 k/cumm (4.4-10.8)
[2019-06-22 14:14] LABS: Bilirubin Negative (Negative); Blood Trace-lysed (Negative); Clarity Sl Cloudy (Clear); Glucose Negative (Negative); Ketones Trace mg/dL (Negative); Leukocyte Esterase Negative (Negative); Nitrite Negative (Negative); Specific Gravity >= 1.030 (1.005-1.025); Urobilinogen 0.2 EU/dL (Up TO 0.2)
[2019-06-22 14:22] LABS: Bacteria Rare HPF (Negative); C & S Indicated? No; Casts Negative LPF (Negative); Crystals Negative HPF (Negative); Epithelial Cells Moderate HPF (Negative); Mucus Trace (Negative); WBC 0-2 HPF (0-5)
[2019-06-22 14:24] LABS: ALT 22 U/L (14-59); AST 20 U/L (15-37); Albumin 3.9 g/dL (3.4-5.0); Alkaline Phosphatase 78 U/L (46-116); Anion Gap 7.8 mmol/L (3-11); BUN 19 mg/dL (7-18); Bilirubin, Total 0.5 mg/dL (0.2-1.0); CO2 29.2 mmol/L (21.0-32.0); CREATININE 0.75 mg/dL (0.55-1.02); Calcium 9.2 mg/dL (8.5-10.1); Chloride 104 mmol/L (98-107); Glucose 93 mg/dL (74-106); Lipase 367 U/L (73-393); Sodium 141 mmol/L (136-145); Total Protein 7.4 g/dL (6.4-8.2); Troponin I < 0.05 ng/Ml (<0.06)
[2019-06-22] MEDS: Normal Saline 1,000 ML 1000 ML IV (14:50)
--- NOTE | 2019-06-22 15:30 | DI.VRAD_ITS ---
PROCEDURE INFORMATION: Exam: XR Chest, 2 Views Exam date and time: 06/22/2019 2:17 PM Age: 64 years old Clinical indication: Pain; Epigastric TECHNIQUE: Imaging protocol: XR of the chest Views: 2 views. COMPARISON: CR XR CHEST 2V PA LATERAL 06/15/2018 11:42 AM FINDINGS: Lungs: No lung consolidation or pulmonary edema. Pleural space: No pleural effusion or pneumothorax. Heart/Mediastinum: The cardiac silhouette is not enlarged. The mediastinal contours are normal. Bones/joints: Multilevel disc degeneration in the thoracic spine. Enchondroma or bone infarct in the proximal right humeral diaphysis. Other findings: No gross pneumoperitoneum. IMPRESSION: No acute abnormality. Dictated and Authenticated by: Erik Fried MD. Ordering:CAILIN Fuller MD
[2019-06-22 16:56] LABS: Troponin I < 0.05 ng/Ml (<0.06)
[2019-06-22 18:19] VITALS: BP 122/78; PULSE 70; TEMP 36.4; O2SAT 99
[2019-06-22] MEDS: Omeprazole 20 MG CAPCR PO (18:28)
[2019-06-22 18:40] VITALS: BP 122/78; PULSE 70; RESP 16; TEMP 36.4; O2SAT 99
== END 2019-06-22 18:40 | disposition home or self-care (01) ==
PROVIDERS: Physician Assistant; Emergency Provider Student in an Organized Health Care Education/Training Program; PCP Nurse Practitioner Adult Health
DX: R10.13 Epigastric pain (principal); M89.8X8 Other specified disorders of bone, other site; R82.998 Other abnormal findings in urine
CPT/HCPCS: 80053; 83690; 93005; 96361; 96374; 99284; 71046; 81003; 81015; 84484; 85025; 93010

== ENCOUNTER 2019-06-23 16:39 | Outpatient (CLI) | payer OTHER, SELFPAY ==
--- NOTE | 2019-06-23 15:30 | DI.RAD_ITS ---
EXAM: XR HUMERUS RT INDICATION: assess enchondroma, D16.9. COMPARISON: RIGHT RIBS TO INCLUDE CXR from 04/02/2011 TECHNIQUE: 2D digital imaging was performed. FINDINGS: Calcification is seen in the upper 3rd of the humeral shaft within the medullary region. The finding s are not appear changed when compared with the previous chest x-ray from 2010. No bony destruction or expansion is seen. IMPRESSION: Stable appearance of humeral enchondroma. DATA REPOSITORY: RADIATION DOSE DELIVERED:
== END 2019-06-23 16:59 ==
PROVIDERS: PCP Nurse Practitioner Adult Health; Visit Provider Nurse Practitioner Adult Health
DX: D16.9 Benign neoplasm of bone and articular cartilage, unspecified (principal); D16.01 Benign neoplasm of scapula and long bones of right upper limb
CPT/HCPCS: 73060

== ENCOUNTER 2019-12-25 01:22 | Outpatient (CLI) | payer OTHER, SELFPAY ==
--- NOTE | 2019-12-25 08:12 | DI.RAD_ITS ---
EXAM: XR HUMERUS RT CLINICAL HISTORY: Assess enchondroma rt humerus, D16.01. TECHNIQUE: 2D digital imaging was performed. COMPARISON: CR XR HUMERUS RT from 06/23/2019 FINDINGS: BONES: No acute fracture is present. There is a stable appearance of the intramedullary coarse calcif ications in the proximal 3rd of the humerus. Radiographically, the findings are consistent with an e nchondroma. Visualized portion of elbow and shoulder joints are unremarkable. SOFT TISSUE: Normal. IMPRESSION: Stable appearance of the humeral enchondroma. DATA REPOSITORY: RADIATION DOSE DELIVERED:
== END 2019-12-25 01:42 ==
PROVIDERS: PCP Nurse Practitioner Adult Health; Visit Provider Nurse Practitioner Adult Health
DX: D16.01 Benign neoplasm of scapula and long bones of right upper limb (principal)
CPT/HCPCS: 73060

== ENCOUNTER 2020-02-23 16:08 | Outpatient (CLI) | payer OTHER, SELFPAY ==
[2020-02-23 10:05] LABS: Abs Immature Grans 0.02 10^3/uL (0.0-0.06); Absolute Basophil Count 0.04 10^3/uL (0.0-0.2); Absolute Eosinophil Count 0.14 10^3/uL (0.0-0.7); Absolute Lymphocyte Count 2.82 10^3/uL (1.2-3.4); Absolute Monocyte Count 0.46 10^3/uL (0.1-0.8); Absolute Neutrophil Count 3.42 10^3/uL (1.2-6.7); Basophils % 0.6; HCT 43.9 % (36.0-46.0); HGB 14.8 g/dL (11.2-15.7); Immature Grans % 0.3; Lymphocytes % 40.9; MCH 29.4 pg (27.0-33.0); MCHC 33.7 % (32.0-36.0); MCV 87.1 fL (80-95); MPV 9.4 fL (8.0-11.0); Monocytes % 6.7; Neutrophils % 49.5; Nucleated RBC 0 %; Platelet Count 203 10^3/uL (130-400); RBC 5.04 10^6/uL (3.93-5.22); RDW 12.4 % (11.7-14.6); RDW-SD 39.4 fL
[2020-02-23 10:19] LABS: Hemoglobin A1C 5.4 % (<5.7)
[2020-02-23 10:59] LABS: Iron 113 ug/dL (50-170); Total Iron Binding Capacity 309 ug/dL (250-450); Transferrin Sat 37 % (15-50)
[2020-02-23 11:23] LABS: Vitamin D 25 Total 57.2 ng/ml (30-100)
[2020-02-23 11:29] LABS: Calculated LDL 90 mg/dL (<100); Cholesterol 173 mg/dL (<200); Ferritin 35 ng/mL (8-252); Folate > 20.0 ng/mL (8.6-20.0); HDL Cholesterol 62 mg/dL (40-60); TSH 2.37 uIU/mL (0.36-3.74); Triglyceride 106 mg/dL (<150); Vitamin B12 1597 pg/mL (193-986)
[2020-02-23 11:38] LABS: Uric Acid 5.1 mg/dL (2.6-6.0)
[2020-02-25 15:55] LABS: Parathyroid Hormone,Intact 63 pg/mL (19-88)
[2020-02-26 12:40] LABS: Prealbumin 22 mg/dL (20-40)
[2020-02-28 21:50] LABS: Thiamine (Vitamin B1), WB 176 nmol/L (70-180)
== END 2020-02-23 16:28 ==
PROVIDERS: PCP Nurse Practitioner Adult Health; Visit Provider Nurse Practitioner Family
DX: F32.9 Major depressive disorder, single episode, unspecified (principal); F41.8 Other specified anxiety disorders; E66.9 Obesity, unspecified; Z51.81 Encounter for therapeutic drug level monitoring
CPT/HCPCS: 36415; 80061; 82306; 82607; 82728; 82746; 83036; 83540; 83550; 83970; 84134; 84425; 84443; 84550; 85025

== ENCOUNTER 2020-03-11 01:15 | Outpatient (CLI) | payer OTHER, SELFPAY ==
--- NOTE | 2020-03-11 08:00 | DI.MAMMO_ITS ---
EXAM: MG MAMMO SCREENING CLINICAL HISTORY: screening,Z12.39 TECHNIQUE: Bilateral full field digital CC and MLO mammographic images were obtained with 3D tomosyn thesis and utilizing computer aided detection (CAD). COMPARISON: Available for comparison. FINDINGS: Masses/Architectural Distortion: None seen. Microcalcifications: No suspicious pleomorphic-type are seen. Skin Thickening/Nipple Retraction: None. IMPRESSION: 1. No significant interval change with no specific features of malignancy noted. 2. Unless there is more urgent need, screening mammography is recommended, as per [employer] guidelines. BI-RADS Category 1 - Negative Breast Density - Category A - Almost entirely fatty A negative radiographic report should not delay biopsy if a dominant or clinically suspicious mass is present. Up to ten percent of cancers are not identified on mammography. A negative report may reinforce clinical impression. Adenosis and dense breasts may obscure an underlying neoplasm. False positive reports average 6 to 10%. Patient will receive a letter notifying them of these results.
== END 2020-03-11 01:35 ==
PROVIDERS: PCP Nurse Practitioner Adult Health; Visit Provider Nurse Practitioner Adult Health
DX: Z12.31 Encounter for screening mammogram for malignant neoplasm of breast (principal)
CPT/HCPCS: 77063; 77067

== ENCOUNTER 2020-06-21 07:10 | Day surgery (SDC) | payer OTHER, SELFPAY ==
--- NOTE | 2020-06-21 06:38 | W.COLOREPORT ---
Date of service: 06/21/20 Time of Service: 08:53 Colonoscopy Report Date of procedure: 06/21/20 Pre-op diagnosis general: Colon Cancer Screening Post-op diagnosis procedure note: same (mild sigmoid diverticulosis) Procedure: Colonoscopy with polypectomy Surgeon: Abbey Holden Anesthesia proc note operative: other (General/ASA 2/[facility] CRNA) Estimated blood loss (mL): 0 Pathology: none sent Complications: None Disposition: same day Indications: Ms. Anderson is a pleasant 64-year-old female who is here to discuss a screening colonoscopy. Her last colonoscopy was in 2007 and was normal. She denies any change in bowel habits, melena, hematochezia, abdominal pain or unintentional weight loss. She underwent gastric bypass in 2013 at [facility]. She was told to take Mylanta prior to any colonoscopy prep. I told her this was fine and she could take it even throughout the day as needed for any heartburn or epigastric discomfort. She did not have any issues with her colonoscopy last time. Risks benefits and complications were reviewed with her as well as Covid testing and quarantine requirements. Risks, benefits and complications have been reviewed. Complications include but are not limited to bleeding, pain, perforation, missed small lesion/polyp, sore throat, aspiration and adverse reaction to the medications. Questions were entertained and answered to their satisfaction and they wished to proceed. No guarantees were given or implied. COVID-19 testing explained to the patient. Reason for test reviewed. Quarantine per state requirements reviewed with patient. Patient understands and agrees to testing. Proceed with colonoscopy under sedation. Prep: Miralax/Dulcolax Procedure Start Time: 08:16 Procedure End Time: 08:49 Retraction Time: 19 minutes Findings: mild sigmoid diverticulosis Procedure Description: After informed consent was obtained the patient was taken to the procedure room and placed in a left decubitous position. Monitors were applied and a time out was done. The patients name, date of , procedure, allergies to medications and metal in their body was reviewed. The patient was then sedated. Once sedated and comfortable a rectal exam was done. External exam was normal. Internal exam revealed a normal sphincter tone and no palpable masses. The scope was then introduced and retro-flexed. No internal hemorrhoids, polyps or masses were identified on retro-flexion. The scope was then advanced to the cecum without difficulty. The ileocecal vlave and appendiceal orifice were identified. The prep was good. The scope was then slowly retracted over 19 minutes back into the rectum. There were no polyps. There was mild diverticulosis noted of the sigmoid colon. The scope was removed and the patient was woken up and taken back to Same day surgery in stable condition. The patient tolerated the procedure well and there were no immediate complications. Follow up: The patient should follow up in 10 years unless they develop changes in bowel habits or other new gastrointestinal complaints.
--- NOTE | 2020-06-21 06:39 | PDOC.DSDIS_ITS ---
Discharge Plan Disposition Patient Disposition: HOME Condition: Good Discharge Details Reason For Visit: Colonoscopy Attending Provider: Abbey Holden Primary Care Provider: Gladis Patricio Home Meds and New Rx's Prescriptions: Continued mupirocin 2 % ointment 1 applic TP BID PRN (Reason: boil) Qty: 30 RF: 0 multivitamin with minerals Capsule 2 cap PO DAILY RF: 0 cholecalciferol (vitamin D3) 1,000 UNIT tablet 1,000 unit PO DAILY RF: 0 clotrimazole 45 GM cream 1 aby Topical BID Qty: 45 RF: 1 aspirin 81 mg tablet,delayed release (DR/EC) 81 mg PO DAILY RF: 0 bupropion HCl 300 mg tablet extended release 24 hr 300 mg PO QAM Qty: 90 RF: 3 bupropion HCl 150 mg tablet extended release 24 hr 150 mg PO QAM Qty: 90 RF: 3 topiramate 25 mg tablet 25 mg PO BID RF: 0 cyanocobalamin (vitamin B-12) 1,000 mcg capsule 1,000 mcg PO Q OTHER DAY RF: 0 calcium citrate-vitamin D3 [Calcitrate-Vitamin D] 315 mg-6.25 mcg (250 unit) tablet 2 tab PO BID RF: 0 phentermine 8 mg tablet 8 mg PO QAM RF: 0 acetaminophen [Mapap Extra Strength] 500 mg Tablet 1,000 mg PO TID Qty: 90 RF: 3 Discharge Instructions Instructions: Diverticulosis (DC) Additional Instructions: Findings: mild diverticulosis Follow up: 10 years Please call if you develop: fevers >101.5 Nausea or Vomiting Abdominal pain that is not transient DAY SURGERY UNIT POST ENDOSCOPY INSTRUCTIONS 1. Because there will be medication in your system for the next 24 hours, you ma y feel a little sleepy. Your coordination will be affected. Therefore: a. Do not drive or operate dangerous equipment for 24 hours. b. Do not drink alcohol beverages for 24 hours (not even beer). c. Plan to go home and rest for the day. 2. Generally there are no restrictions on your activity after a day or so has gone by, but you may feel a bit fatigued for a few days. 3 After you arrive home you may have a light meal and return to a normal diet as you can tolerate it without feeling sick to your stomach. 4. After surgery, you may feel pain or discomfort. This should be only transient, but if it persists please contact your doctor. 5. If there are any questions regarding the findings of your procedure, please feel free to contact your doctor. 6. If you are unable to contact your doctor with a problem, contact the hospital at [phone]. 7. Continue all your regular medications unless directed otherwise. I understand the above instructions and have no questions. Signature of Patient or Responsible Adult Escort Date/Time Name of Responsible Adult Escort Signature of Nurse Date/Time Activity:: Activity as Tolerated Diet:: high fiber diet Discharge Orders Discharge Orders: Discharge Order (Routine); Ordered 06/21/20 Ordered By: Abbey Holden
[2020-06-21 07:26] VITALS: BP 122/78; PULSE 92; RESP 16; TEMP 36.4; O2SAT 95
[2020-06-21] MEDS: Lactated Ringers 1,000 ML 80 ML IV (07:45)
[2020-06-21 09:12] VITALS: BP 112/71; PULSE 75; RESP 16; TEMP 36.3; O2SAT 97
== END 2020-06-21 09:35 | disposition home or self-care (01) ==
LOC: SUR 07:10
PROVIDERS: PCP Nurse Practitioner Adult Health; Visit Provider Surgery
PROC: 0DJD8ZZ Inspection of Lower Intestinal Tract, Via Natural or Artificial Opening Endoscopic (ICD-10-PCS; CPT 45378; principal; 2020-06-21 08:30)
DX: Z12.11 Encounter for screening for malignant neoplasm of colon (principal); Z98.84 Bariatric surgery status; K57.30 Diverticulosis of large intestine without perforation or abscess without bleeding
CPT/HCPCS: 45378; J2001; J2704

== ENCOUNTER 2021-04-13 15:03 | Outpatient (CLI) | payer OTHER, SELFPAY ==
--- NOTE | 2021-04-13 14:30 | DI.MAMMO_ITS ---
Exam(s) MAMMO SCREENING EXAM: MAMMO SCREENING CLINICAL HISTORY: screening Z12.39 TECHNIQUE: Mammograms were interpreted according to the usual protocol including computer analysis w [employer] CAD system, tomosynthesis and C-view imaging. COMPARISON: 2013 through 2019 FINDINGS: The breasts are composed of mainly fatty density , Breast Density category A. No suspicious masses or suspicious microcalcifications are seen. No skin thickening or abnormal axillary lymph nodes are seen. There has been no significant change from prior exams. IMPRESSION: BI-RADS Category 1, Negative mammogram Yearly screening mammography is recommended. Breast Density - Category A, fatty density. A negative radiographic report should not delay biopsy if a dominant or clinically suspicious mass is present. Up to ten percent of cancers are not identified on mammography. A negative report may reinforce clinical impression. Adenosis and dense breasts may obscure an underlying neoplasm. False positive reports average 6 to 10%. Patient will receive a letter notifying them of these results.
== END 2021-04-13 15:23 ==
PROVIDERS: PCP Nurse Practitioner Adult Health; Visit Provider Nurse Practitioner Adult Health
DX: Z12.31 Encounter for screening mammogram for malignant neoplasm of breast (principal)
CPT/HCPCS: 77063; 77067

== ENCOUNTER 2021-05-13 00:31 | Outpatient (CLI) | payer OTHER, SELFPAY ==
--- NOTE | 2021-05-13 08:15 | DI.DEXA_ITS ---
Exam(s) XR DEXA BONE DENSITY W/WO MAITE EXAM: XR DEXA BONE DENSITY W/WO MAITE CLINICAL HISTORY: screening FOR OSTEOPOROSIS IN POSTMENOPAUSAL WOMAN,Z78.0 TECHNIQUE: [employer] C densitometer COMPARISON: CR XR HUMERUS RT from 12/25/2019 FINDINGS: Lateral view of the thoracic and lumbar spine shows no evidence of compression fractures. Bone mineral density measurements of the lumbar spine correspond to a total T-score of -1.8, in the osteopenic range. Bone mineral density measurements of the left hip correspond to a total T-score of -2.2. The femora l neck T-score is -2.7, in the osteoporotic range.. The left forearm bone mineral density measurements correspond to a T-score of the distal 3rd of -2.4 , consistent with osteopenia.. IMPRESSION: Osteopenia of the left forearm and lumbar spine. Osteoporosis of the left hip.
== END 2021-05-13 00:51 ==
PROVIDERS: PCP Nurse Practitioner Adult Health; Visit Provider Nurse Practitioner Adult Health
DX: M81.0 Age-related osteoporosis without current pathological fracture (principal); M85.88 Other specified disorders of bone density and structure, other site; Z78.0 Asymptomatic menopausal state
CPT/HCPCS: 77080

== ENCOUNTER 2021-05-16 09:41 | Emergency (ER) | payer OTHER, SELFPAY ==
[2021-05-16 10:10] VITALS: BP 127/63; PULSE 88; RESP 18; TEMP 36.7; O2SAT 97
--- NOTE | 2021-05-16 10:30 | RT.EKG_ITS ---
APPROVED REPORT Exam: Resting ECG Reason for Exam: epigastric pain Patient Location: E HR:69 bpm ECG Measurements Heart Rate 69 AXIS AR 142 P 48 QRSd 90 QRS -21 QT 392 T 50 QTc 421 Conclusion Sinus rhythm...normal P axis, V-rate 60- 99 sinus rhythm 69, normal axis, no acute ischemic changes, nondiagnostic EKG
--- NOTE | 2021-05-16 10:47 | ED.GENADUL_ITS ---
Discharge Plan Disposition Patient Disposition: HOME Condition: Good Discharge Details Clinical Impression: Abdominal pain Primary Care Provider: Gladis Patricio ED Provider: Tamy Hernandez Home Meds and New Rx's Prescriptions: Continued ibuprofen 200 mg tablet 800 mg PO QHS PRNRF: 0 multivitamin with minerals Capsule 2 cap PO DAILY RF: 0 bupropion HCl 300 mg tablet extended release 24 hr 300 mg PO QAM Qty: 90 RF: 3 bupropion HCl 150 mg tablet extended release 24 hr 150 mg PO QAM Qty: 90 RF: 3 metronidazole 1 % gel 1 applic topical QHS Qty: 60 RF: 0 clotrimazole 1 % cream 1 applic topical BID PRNRF: 0 cholecalciferol (vitamin D3) 1,000 UNIT tablet 1,000 unit PO DAILY RF: 0 aspirin 81 mg tablet,delayed release (DR/EC) 81 mg PO DAILY RF: 0 cyanocobalamin (vitamin B-12) 1,000 mcg capsule 1,000 mcg PO Q OTHER DAY RF: 0 calcium citrate-vitamin D3 [Calcitrate-Vitamin D] 315 mg-6.25 mcg (250 unit) tablet 2 tab PO BID RF: 0 phentermine 8 mg tablet 8 mg PO QAM RF: 0 topiramate 50 mg tablet 50 mg PO QAM RF: 0 Discharge Instructions Instructions: Abdominal Pain (ED) Additional Instructions: Please return immediately to the emergency department if you develop any new or worsening symptoms, if your condition does not improve as expected, or if you become otherwise concerned. It is extremely important that you call soon as possible to make an appointment to be seen in follow-up for this visit by your primary care doctor and your surgeon as we discussed (some changes were found in your scan that will need to be reviewed by your surgeon). Referrals: Gladis Patricio, RIPPLER [Primary Care Provider] - Discharge Data Discharge Date/Time-TO BE ENTERED AT DEPARTURE: 05/16/21 16:49 Medical Decision Making Charli Anderson is a 65-year-old woman with history of anxiety, depression, status post Beatriz-en-Y 2013, status post panniculectomy 01/11 who presented to the emergency department with 2 episodes of sudden onset severe sharp periumbilical abdominal pain lasting for 2 to 3 minutes each while at rest without known triggers, now denying any symptoms. On exam patient is very well and nontoxic- appearing. There is no abdominal tenderness to palpation. Surgical incision appears to be healing well. Concern for benign etiology of pain such as gas pain versus pancreatitis versus postsurgical complication versus gastritis/peptic ulcer disease versus other. Doubt acute coronary syndrome. Exam/history at this time is not consistent with acute aortic pathology, pulmonary embolism, mesenteric ischemia, sepsis. Plan for IV placement, screening labs, CT abdomen/pelvis. Will monitor and reassess. Labs reviewed, non-diagnostic. CT shows stranding, fluid nodule in area of prior surgery. Given Pt's report of complicated healing process from this surgery, Pt should have images reviwed by her surgeon. No acute cellulitis or other apparent infection requiring abx at this time. Pt has f/u appt with plastic surgery scheduled for tomorrow. No apparent etiology of Pt's pain determined at this time. No acute emegent medical condition identified. Pt reports no further pain or other symptoms during course of ED stay. I had a discussion with Patient regarding return to emergency department precautions, home care, and importance of outpatient follow-up. Pt verbalizes understanding of the plan and is amenable. Patient discharged to home with clear plan for outpatient follow-up. All questions were answered. Disposition decision was made weighing the risks and benefits of hospitalization versus outpatient treatment, the risk for further decompensation, and the patient's wishes. Medical Records Medical records reviewed: Yes I reviewed the patient's medical records. Imaging Data Radiologic Study: Attestation: I personally reviewed and interpreted this imaging study as follows: Radiologist's impression: EXAM: CT ABDOMEN PELVIS W CLINICAL HISTORY: abd pain. TECHNIQUE: Imaging Protocol: Axial computed tomography images with coronal and sagittal reformatted images were created and reviewed CONTRAST MATERIAL: Intravenous: Omnipaque 100cc Oral: None COMPARISON: CT CHEST FOR PULMONARY EMBOLUS from 07/22/2016 FINDINGS: VISUALIZED LUNG BASES: No nodules nor pleural effusions evident. ABDOMEN: There is no ascites. LIVER: There is a 2.5 x 2.5 cm cyst in the right hepatic lobe just above the gallbladder fossa . No new ominous focal hepatic lesions evident. Mild dilatation of intrahepatic ducts is commensurate with post cholecystectomy status. GALLBLADDER/BILIARY: Gallbladder surgically absent. CBD diameter upper normal. PANCREAS: No evidence of pancreatic mass nor dilatation of the pancreatic duct. SPLEEN: Spleen is not enlarged. No obvious intrasplenic lesions. Splenic and portal veins are patent. ADRENALS: There are no significant adrenal masses. KIDNEYS:Bilateral nephrolithiasis noted. No ominous renal masses. No hydronephrosis. No hydroureter. No significant focal findings in the somewhat distended urinary bladder.. ABDOMINAL AORTA: Abdominal aorta is not enlarged. LYMPH NODES:There is no retroperitoneal nor paraaortic adenopathy. ABDOMINAL WALL: No evidence of significant anterior abdominal hernia. However, there is some skin thickening over the anterior right side of the abdominal wall in the pelvis with underlying streaking but no formed abscess at this level. In addition, there are multiple clips in the subcutaneous tissues over the left side of the pelvis and there is also a subcutaneous nodule measuring 2 cm wide by 1.5 cm AP by 1.8 cm craniocaudal. This exhibits uniform density therein which is fluid density. This probably some type of benign subcutaneous cyst. GI: Again noted is evidence of prior bariatric surgery which appears to be gastric sleeve. There is no thrombosis of the superior mesenteric vein (which is a recognized complication of this procedure) PELVIS: GI: No evidence of appendicitis.No evidence of sigmoid diverticulitis. LYMPH NODES: There is no intrapelvic nor inguinal adenopathy. REPRODUCTIVE: Uterus and adnexal regions appear unremarkable. URINARY BLADDER: No calculi nor obvious masses evident OSSEOUS: No significant osseous lesions. IMPRESSION: 1. Gallbladder surgically absent. Biliary tree is not dilated 2. This patient has had prior gastric sleeve bariatric surgery. 3. Bilateral nephrolithiasis. No obstructing calculi. No calculi in the somewhat distended urinary bladder. 4. Subcutaneous streaking over the right pelvic abdominal wall subcutaneous fat and there is also a 2 x 1.5 cm subcutaneous fluid nodule over the left side. Lab Data Lab results reviewed: Yes I reviewed the patient's lab results. Labs: Laboratory Tests Range/Units 05/16/21 05/16/21 05/16/21 10:45 10:45 10:45 WBC (4.4-10.8) 10^3/uL 7.12 RBC (3.93-5.22) 10^6/uL 5.16 Hgb (11.2-15.7) g/dL 14.7 Hct (36.0-46.0) % 44.3 MCV (80-95) fL 85.9 MCH (27.0-33.0) pg 28.5 MCHC (32.0-36.0) % 33.2 RDW (11.7-14.6) % 13.0 Plt Count (130-400) 10^3/uL 184 MPV (8.0-11.0) fL 9.3 Immature Gran % 0.1 Neutrophils % 57.4 Lymphocytes % 34.1 Monocytes % 6.9 Eosinophils % 1.1 Basophils % 0.4 Nucleated RBC % % 0 Absolute Neutrophils (1.2-6.7) 10^3/uL 4.08 Absolute Lymphocytes (1.2-3.4) 10^3/uL 2.43 Absolute Monocytes (0.1-0.8) 10^3/uL 0.49 Absolute Eosinophils (0.0-0.7) 10^3/uL 0.08 Absolute Basophils (0.0-0.2) 10^3/uL 0.03 VBG Lactate (0.6-1.4) mmol/L 1.4 Sodium (136-145) mmol/L 140 Potassium (3.5-5.1) mmol/L 4.0 Chloride (98-107) mmol/L 105 Carbon Dioxide (21.0-32.0) mmol/L 25.0 Anion Gap (3-11) mmol/L 10.0 BUN (7-18) mg/dL 17 Creatinine (0.55-1.02) mg/dL 0.8 Estimated GFR/1.73 m2 (mL/min/1.73m2) >= 60.00 Glucose (74-106) mg/dL 73 L Calcium (8.5-10.1) mg/dL 9.3 Total Bilirubin (0.2-1.0) mg/dL 0.4 AST (15-37) U/L 81 H ALT (14-59) U/L 43 Alkaline Phosphatase (46-116) U/L 104 Troponin I (<or=60) ng/L < 50 Total Protein (6.4-8.2) g/dL 7.6 Albumin (3.4-5.0) g/dL 3.7 Lipase (73-393) U/L 141 Urine Color (Yellow) Urine Clarity (Clear) Urine pH (5-8) Ur Specific [place] (1.005-1.025) Urine Protein (Negative) mg/dL Urine Ketones (Negative) mg/dL Urine Blood (Negative) Urine Nitrite (Negative) Urine Bilirubin (Negative) Urine Urobilinogen (Up TO 0.2) EU/dL Ur Leukocyte Esterase (Negative) Urine Glucose (Negative) mg/dL Range/Units 05/16/21 05/16/21 05/16/21 10:45 14:13 15:15 WBC (4.4-10.8) 10^3/uL RBC (3.93-5.22) 10^6/uL Hgb (11.2-15.7) g/dL Hct (36.0-46.0) % MCV (80-95) fL MCH (27.0-33.0) pg MCHC (32.0-36.0) % RDW (11.7-14.6) % Plt Count (130-400) 10^3/uL MPV (8.0-11.0) fL Immature Gran % Neutrophils % Lymphocytes % Monocytes % Eosinophils % Basophils % Nucleated RBC % % Absolute Neutrophils (1.2-6.7) 10^3/uL Absolute Lymphocytes (1.2-3.4) 10^3/uL Absolute Monocytes (0.1-0.8) 10^3/uL Absolute Eosinophils (0.0-0.7) 10^3/uL Absolute Basophils (0.0-0.2) 10^3/uL VBG Lactate (0.6-1.4) mmol/L Sodium (136-145) mmol/L Potassium (3.5-5.1) mmol/L Chloride (98-107) mmol/L Carbon Dioxide (21.0-32.0) mmol/L Anion Gap (3-11) mmol/L BUN (7-18) mg/dL Creatinine (0.55-1.02) mg/dL Estimated GFR/1.73 m2 (mL/min/1.73m2) Glucose (74-106) mg/dL Calcium (8.5-10.1) mg/dL Total Bilirubin (0.2-1.0) mg/dL AST (15-37) U/L ALT (14-59) U/L Alkaline Phosphatase (46-116) U/L Troponin I (<or=60) ng/L Cancelled < 50 Total Protein (6.4-8.2) g/dL Albumin (3.4-5.0) g/dL Lipase (73-393) U/L Urine Color (Yellow) Yellow Urine Clarity (Clear) Clear Urine pH (5-8) 7.5 Ur Specific [place] (1.005-1.025) 1.015 Urine Protein (Negative) mg/dL Negative Urine Ketones (Negative) mg/dL Negative Urine Blood (Negative) Negative Urine Nitrite (Negative) Negative Urine Bilirubin (Negative) Negative Urine Urobilinogen (Up TO 0.2) EU/dL 0.2 Ur Leukocyte Esterase (Negative) Negative Urine Glucose (Negative) mg/dL Negative ECG Data Attestation: I personally reviewed and interpreted this ECG (s) as follows: Interpretation: EKG shows sinus rhythm 69, normal axis, no acute ischemic changes, nondiagnostic EKG HPI General Mode of arrival: ambulatory . Date/Time Provider Initiated Documentation: 05/16/21 09:56 . Limitations to Documentation: no limitations . Information obtained by: patient, RN notes reviewed and old records reviewed . HPI Narrative: Charli Anderson is a 65-year-old woman with a history anxiety and depression, status post Beatriz-en-Y 2013, status post panniculectomy 01/11 presenting to emergency department with abdominal pain. Patient reports that she was sitting in her office at her desk this morning when she had sudden onset pain just above the area of her umbilicus. Patient reports that it was sharp and severe, nonradiating, and lasted for 2 to 3 minutes. She reports the pain resolved spontaneously. Patient reports that a few minutes later pain returned, same location/quality/severity, lasted for 2 to 3 minutes and then resolved. Patient reports that she did not have any other pain at the time, has had no pain over the past few days, and has no current pain. She reports that she has had no recent symptoms and has been feeling in her usual state of health. She denies fevers, vomiting, diarrhea, patient, dysuria, cough, shortness of breath, numbness, weakness, swelling, appetite changes. Has been eating and drinking as usual. She denies alcohol use, recreational drug use, nicotine/tobacco use. Patient reports that she had similar episode of pain a few months ago at home for which she did not seek care. Patient reports that she has had some delayed wound healing after panniculectomy, but had recent outpatient visit for this and was told that at this point everything is healing well. Has had no complications from bariatric Beatriz-en-Y surgery 2013. Related Data Home Medications Medication Instructions Recorded Confirmed cholecalciferol (vitamin D3) 1,000 unit PO DAILY 06/25/17 05/16/21 aspirin 81 mg tablet,delayed 81 mg PO DAILY 09/01/19 05/16/21 release multivitamin with minerals 2 cap PO DAILY cap 09/03/19 05/16/21 calcium citrate 315 mg 2 tab PO BID tab 03/02/20 05/16/21 calcium-vitamin D3 6.25 mcg (250 unit) tablet cyanocobalamin (vitamin B-12) 1,000 mcg PO Q OTHER DAY cap 03/02/20 05/16/21 1,000 mcg capsule phentermine 8 mg tablet 8 mg PO QAM tab 05/26/20 05/16/21 bupropion HCl 150 mg 24 hr tablet, 150 mg PO QAM #90 tab 09/01/20 05/16/21 extended release bupropion HCl 300 mg 24 hr tablet, 300 mg PO QAM #90 tab 09/01/20 05/16/21 extended release metronidazole 1 % topical gel 1 applic TOPICAL QHS #60 g 09/01/20 05/16/21 ibuprofen 200 mg tablet 800 mg PO QHS PRN tab 09/15/20 05/16/21 clotrimazole 1 % topical cream 1 applic TOPICAL BID PRN g 12/15/20 05/16/21 topiramate 50 mg tablet 50 mg PO QAM tab 12/16/20 05/16/21 Previous Rx's Medication Instructions Recorded bupropion HCl 150 mg 24 hr tablet, 150 mg PO QAM #90 tab 09/01/20 extended release bupropion HCl 300 mg 24 hr tablet, 300 mg PO QAM #90 tab 09/01/20 extended release metronidazole 1 % topical gel 1 applic TOPICAL QHS #60 g 09/01/20 Allergies Allergy/AdvReac Type Severity Reaction Status Date / Time codeine AdvReac Intermediate Hyper, Verified 05/16/21 10:13 kept awake all night hydrocodone bitartrate AdvReac Intermediate Hyper,antsy Verified 05/16/21 10:13 [From Vicodin] General Stated Complaint: Abd Prob LIBIA: 3 Review of Systems Narrative: Constitutional: denies fevers Eyes: denies eye pain ENT: denies ear pain, dental pain, sore throat Cardiovascular: denies chest pain, edema Respiratory: denies SOB, cough GI: denies vomiting, diarrhea, constipation, reports abdominal pain as per HPI : denies flank pain, dysuria MSK: denies back pain, neck pain, arthralgias, myalgias Skin: denies rash Neuro: denies headaches, numbness, weakness PFSH All Active Problems (Updated 05/16/21 @ 16:13 by Tamy Hernandez MD) Abdominal pain (Acute) Osteoporosis (Chronic) Hip; osteopenia lumbar spine & left wrist; DEXA 04/2021 Obesity (Chronic) s/p gastric surgery [facility] [place] 2013 [facility] [place] Nutrition Anxiety and depression (Chronic) Medical History Enchondroma of right humerus 06/23/2019 with repeat 6m--> both stable Intertrigo (09/24/17) Migraine (09/21/11) Nasal vestibulitis (08/26/15) Normal colonoscopy (~06/2020) Peripheral venous insufficiency (09/21/11) peripheral edema, prn hctz Primary osteoarthritis of both knees s/p b/l TKA 01/2018 Rosacea (09/21/11) Vitamin D deficiency (06/25/17) s/p bariatric surgery; resolved with supplementation Surgical History (Updated 12/30/20 @ 14:08 by Deepika Elizondo RN) Cholecystectomy (03/07/13) H/O arthroscopy of knee Dreisbach, right knee arthroscopy, chondroplasty of both the patella and medial tibial plateau and femoral condyle with microfracture. July and December 2011 both Dreisbach. (Reviewed by Kevin BROOKS 01/29/18) H/O bariatric surgery [facility] [place] 11/2013 H/O colonoscopy (10/02/07) H/O vein stripping (~08/21/00) Dr. Mayda HEAD S/P panniculectomy (12/29/20) S/P tonsillectomy and adenoidectomy S/P tubal ligation (~04/1991) Status post total knee replacement, bilateral DOS: 01/29/18 Dr. Zafar Family History (Updated 03/09/21 @ 16:20 by Rebecca Chang RN) Mother , 05/06/16 age 83 multiple hosp for resp complication/pneumonia Diabetes Hypertension Hyperlipidemia Coronary heart disease CABG x4 in 60's Stroke at age 71 Breast cancer dx mid 70's Asthma Depression Father , age 80 COPD (chronic obstructive pulmonary disease) Bladder cancer Coronary heart disease stented Hypertension Hyperlipidemia Sister Obesity Brother Obesity Maternal Aunt Multiple sclerosis Social History Smoking/Tobacco Use Status: Never Smoking risk assessment performed?: Yes Alcohol Intake: current Alcohol Intake frequency: a few times a month Drug use: Never Substance use type: does not use Adopted: No Foster care: No Household members: spouse Housing: house Number of Children: 1 number of grandchildren: 0 Communication Needs: None and Corrective Lenses Education Level: other Details: associates degree current occupation: [employer] Pets and animals: No Sexually active: Yes Do you think of yourself as: straight/heterosexual Current gender identity: female What is your relationship status?: How often do you talk on the phone with friends or family?: three or more times per week How often do you get together with friends or relatives?: once per week Panel score (0-1 are the most socially isolated patients): 2 NHANES result reviewed/action taken: No What type of physical activity do you participate in: walking Duration: < 15 minutes/day Frequency: 1-2 times per week Karmen/Sabianism: Adventism Special karmen needs: No Seatbelt use: always Helmet use: Yes Helmet use: always Drive intox or ride w/intox school bus driver/custodian: No Working smoke detector in home: Yes Fire extinguisher in home: Yes Carbon monox detector in home: Yes Firearms in home: Yes Firearms unloaded and locked: No Do you feel safe at home: Yes Do you feel safe in your relationship?: Yes History History Para 1 Hx # Term Pregnancies Multiple births Hx # Pregnancies Ectopic pregnancies AB induced Hx Number of Living Children AB spontaneous Exam Narrative Exam Narrative: Constitutional: well and [id number], pleasant, conversing normally HENT: head atraumatic/normocephalic/normal inspection, mucous membranes moist Eyes: conjunctiva normal, sclera normal, pupils 3mm b/l Neck: no stridor, normal ROM, trachea midline Chest: normal inspection Resp: normal work of breathing, speaking full sentences Cardio: normal rate, normal rhythm GI: abdomen soft, non-tender, non-distended, recent panniculectomy surgical incision healing well without drainage, erythema, or dehiscence Skin: warm, dry, normal color, no rash Neuro: alert, not altered, grossly non-focal, normal tone Ext: no edema Psych: normal mood, normal affect, normal behavior Course Vital Signs Vital signs: Vital Signs Temperature 36.7 C 05/16/21 10:10 Pulse 88 05/16/21 10:10 Respiratory Rate 18 05/16/21 10:10 Blood Pressure 127/63 05/16/21 10:10 Pulse Oximetry 97 05/16/21 10:10 Temperature 36.7 C 05/16/21 10:10 Temperature Source Temporal Artery Scan 05/16/21 10:10 Pulse 88 05/16/21 10:10 Respiratory Rate 18 05/16/21 10:10 Respiratory Effort Non-Labored 05/16/21 10:14 Blood Pressure 127/63 05/16/21 10:10 Blood Pressure Position Sitting 05/16/21 10:10 Pulse Oximetry 97 05/16/21 10:10 Oxygen Delivery Method Room Air 05/16/21 10:10 Oxygen Flow Rate 0 05/16/21 10:10 Pain Level 0 05/16/21 10:25
[2021-05-16 10:52] LABS: Abs Immature Grans 0.01 10^3/uL (0.0-0.06); Absolute Basophil Count 0.03 10^3/uL (0.0-0.2); Absolute Eosinophil Count 0.08 10^3/uL (0.0-0.7); Absolute Lymphocyte Count 2.43 10^3/uL (1.2-3.4); Absolute Monocyte Count 0.49 10^3/uL (0.1-0.8); Absolute Neutrophil Count 4.08 10^3/uL (1.2-6.7); Basophils % 0.4; Eosinophils % 1.1; HCT 44.3 % (36.0-46.0); HGB 14.7 g/dL (11.2-15.7); Immature Grans % 0.1; Lymphocytes % 34.1; MCH 28.5 pg (27.0-33.0); MCHC 33.2 % (32.0-36.0); MCV 85.9 fL (80-95); MPV 9.3 fL (8.0-11.0); Monocytes % 6.9; Neutrophils % 57.4; Nucleated RBC 0 %; Platelet Count 184 10^3/uL (130-400); RBC 5.16 10^6/uL (3.93-5.22); RDW-SD 40.8 fL; WBC 7.12 10^3/uL (4.4-10.8)
[2021-05-16 10:54] LABS: Lactate 1.4 mmol/L (0.6-1.4)
[2021-05-16 11:14] LABS: ALT 43 U/L (14-59); AST 81 U/L (15-37); Albumin 3.7 g/dL (3.4-5.0); Alkaline Phosphatase 104 U/L (46-116); BUN 17 mg/dL (7-18); Bilirubin, Total 0.4 mg/dL (0.2-1.0); CREATININE 0.8 mg/dL (0.55-1.02); Calcium 9.3 mg/dL (8.5-10.1); Chloride 105 mmol/L (98-107); Glucose 73 mg/dL (74-106); Lipase 141 U/L (73-393); Sodium 140 mmol/L (136-145); Total Protein 7.6 g/dL (6.4-8.2); Troponin I < 50 ng/L (<or=60)
--- NOTE | 2021-05-16 11:45 | DI.CT_ITS ---
Exam(s) CT ABDOMEN PELVIS W EXAM: CT ABDOMEN PELVIS W CLINICAL HISTORY: abd pain. TECHNIQUE: Imaging Protocol: Axial computed tomography images with coronal and sagittal reformatted images were created and reviewed CONTRAST MATERIAL: Intravenous: Omnipaque 100cc Oral: None COMPARISON: CT CHEST FOR PULMONARY EMBOLUS from 07/22/2016 FINDINGS: VISUALIZED LUNG BASES: No nodules nor pleural effusions evident. ABDOMEN: There is no ascites. LIVER: There is a 2.5 x 2.5 cm cyst in the right hepatic lobe just above the gallbladder fossa . No new ominous focal hepatic lesions evident. Mild dilatation of intrahepatic ducts is commensurate wit h post cholecystectomy status. GALLBLADDER/BILIARY: Gallbladder surgically absent. CBD diameter upper normal. PANCREAS: No evidence of pancreatic mass nor dilatation of the pancreatic duct. SPLEEN: Spleen is not enlarged. No obvious intrasplenic lesions. Splenic and portal veins are paten t. ADRENALS: There are no significant adrenal masses. KIDNEYS:Bilateral nephrolithiasis noted. No ominous renal masses. No hydronephrosis. No hydrourete r. No significant focal findings in the somewhat distended urinary bladder.. ABDOMINAL AORTA: Abdominal aorta is not enlarged. LYMPH NODES:There is no retroperitoneal nor paraaortic adenopathy. ABDOMINAL WALL: No evidence of significant anterior abdominal hernia. However, there is some skin th ickening over the anterior right side of the abdominal wall in the pelvis with underlying streaking b ut no formed abscess at this level. In addition, there are multiple clips in the subcutaneous tissue s over the left side of the pelvis and there is also a subcutaneous nodule measuring 2 cm wide by 1.5 cm AP by 1.8 cm craniocaudal. This exhibits uniform density therein which is fluid density. This p robably some type of benign subcutaneous cyst. GI: Again noted is evidence of prior bariatric surgery which appears to be gastric sleeve. There is no thrombosis of the superior mesenteric vein (which is a recognized complication of this procedure) PELVIS: GI: No evidence of appendicitis.No evidence of sigmoid diverticulitis. LYMPH NODES: There is no intrapelvic nor inguinal adenopathy. REPRODUCTIVE: Uterus and adnexal regions appear unremarkable. URINARY BLADDER: No calculi nor obvious masses evident OSSEOUS: No significant osseous lesions. IMPRESSION: 1. Gallbladder surgically absent. Biliary tree is not dilated 2. This patient has had prior gastric sleeve bariatric surgery. 3. Bilateral nephrolithiasis. No obstructing calculi. No calculi in the somewhat distended urinary bladder. 4. Subcutaneous streaking over the right pelvic abdominal wall subcutaneous fat and there is also a 2 x 1.5 cm subcutaneous fluid nodule over the left side. RADIATION DOSE DELIVERED: 894.47mGy.cm Total DLP DATA REPOSITORY: All CT scans at this facility are submitted to the National Radiology Data Registry (NRDR) Dose Index Registry (DIR) with the [employer] (ACR). RADIATION OPTIMIZATION: All CT scans at this facility use at least one of these dose optimization te chniques: automated exposure control; mA and/or kV adjustment per patient size (includes targeted exa ms where dose is matched to clinical indication); or iterative reconstruction.
[2021-05-16 12:10] VITALS: BP 116/78; PULSE 68; RESP 14; TEMP 36.4; O2SAT 96
[2021-05-16] MEDS: Omnipaque 350 MG/ML 100 ML BTL IJ (14:33)
[2021-05-16 14:35] LABS: Troponin I < 50 ng/L (<or=60)
[2021-05-16 15:22] LABS: Bilirubin Negative (Negative); Blood Negative (Negative); Clarity Clear (Clear); Glucose Negative (Negative); Ketones Negative (Negative); Leukocyte Esterase Negative (Negative); Nitrite Negative (Negative); Specific Gravity 1.015 (1.005-1.025); Urobilinogen 0.2 EU/dL (Up TO 0.2); pH 7.5 (5-8)
[2021-05-16 15:34] VITALS: BP 125/75; PULSE 75; RESP 14; TEMP 36.6; O2SAT 100
[2021-05-16 16:31] VITALS: BP 127/63; PULSE 88; RESP 14; O2SAT 100
--- NOTE | 2021-05-16 16:38 | CMACTNOTE_ITS ---
- If Service Date Differs Date of service: 05/16/21 Time of Service: 16:38 Care Management Activity Note Charli is seen in the ED for abdominal pain. At the request of ED provider, ANGELITA contacts [facility] [place] to request a follow up appointment in the next week or two. Charli is scheduled to see VILMA Freeman, BABYSITTER, on Monday, May 17, 2021 at 11:00 am.
--- NOTE | 2021-05-16 16:38 | PDOC.ERCMACT ---
- If Service Date Differs Date of service: 05/16/21 Time of Service: 16:38 Care Management Activity Note Charli is seen in the ED for abdominal pain. At the request of ED provider, ANGELITA contacts [facility] [place] to request a follow up appointment in the next week or two. Charli is scheduled to see VILMA Freeman, ENGRAVER PICTURE, on Monday, May 17, 2021 at 11:00 am.
== END 2021-05-16 16:49 | disposition home or self-care (01) ==
PROVIDERS: Emergency Provider Student in an Organized Health Care Education/Training Program; PCP Nurse Practitioner Adult Health
DX: R10.33 Periumbilical pain (principal); Z98.84 Bariatric surgery status
CPT/HCPCS: 36415; 80053; 83690; 93005; 99285; 74177; 81003; 83605; 84484; 85025; 93010; 99283; J3490

== ENCOUNTER 2021-05-17 11:30 | Outpatient (CLI) | payer OTHER, SELFPAY ==
[2021-05-17 09:37] LABS: HCT 46.1 % (36.0-46.0); HGB 15.1 g/dL (11.2-15.7); MCH 28.2 pg (27.0-33.0); MCHC 32.8 % (32.0-36.0); Platelet Count 172 10^3/uL (130-400); RBC 5.36 10^6/uL (3.93-5.22); RDW 13.1 % (11.7-14.6); RDW-SD 41.1 fL; WBC 6.21 10^3/uL (4.4-10.8)
[2021-05-17 10:42] LABS: Iron 81 ug/dL (50-170)
[2021-05-17 10:49] LABS: Calculated LDL 84 mg/dL (<100); Cholesterol 166 mg/dL (<200); HDL Cholesterol 70 mg/dL (40-60); TSH (W/Ref FT4) 2.13 uIU/mL (0.36-3.74); Triglyceride 62 mg/dL (<150)
[2021-05-17 11:03] LABS: ALT 37 U/L (14-59); AST 31 U/L (15-37); Albumin 4.1 g/dL (3.4-5.0); Alkaline Phosphatase 109 U/L (46-116); Anion Gap 11.5 mmol/L (3-11); BUN 16 mg/dL (7-18); Bilirubin, Total 0.6 mg/dL (0.2-1.0); CO2 26.5 mmol/L (21.0-32.0); CREATININE 0.8 mg/dL (0.55-1.02); Calcium 9.5 mg/dL (8.5-10.1); Chloride 102 mmol/L (98-107); Ferritin 48 ng/mL (8-252); Glucose 96 mg/dL (74-106); Sodium 140 mmol/L (136-145); Total Protein 7.7 g/dL (6.4-8.2); Vitamin B12 781 pg/mL (193-986)
[2021-05-17 11:06] LABS: Folate > 20.0 ng/mL (8.6-20.0)
[2021-05-18 11:44] LABS: Parathyroid Hormone,Intact 26 pg/mL (19-88)
[2021-05-19 00:49] LABS: Vitamin D 25 Total 71.1 ng/mL (30-100)
[2021-05-20 16:37] LABS: Thiamine (Vitamin B1), WB 173 nmol/L (70-180)
== END 2021-05-17 11:31 | disposition home or self-care (01) ==
LOC: LBO 11:31
PROVIDERS: PCP Nurse Practitioner Adult Health; Visit Provider Nurse Practitioner Family
DX: E83.10 Disorder of iron metabolism, unspecified (principal); K91.2 Postsurgical malabsorption, not elsewhere classified; Z98.84 Bariatric surgery status; F41.8 Other specified anxiety disorders; M81.0 Age-related osteoporosis without current pathological fracture; E66.8 Other obesity; Z13.220 Encounter for screening for lipoid disorders
CPT/HCPCS: 80053; 80061; 82306; 85027; 82607; 82728; 82746; 83540; 83970; 84425; 84443

== ENCOUNTER 2021-06-27 16:03 | Outpatient (CLI) | payer OTHER, SELFPAY ==
--- NOTE | 2021-06-27 11:01 | DI.RAD_ITS ---
Exam(s) XR HIP LT COMPLETE AP PELVIS EXAM: XR HIP LT COMPLETE AP PELVIS INDICATION: LT HIP PAIN S/P FALL, M25.552, W19.XXXA, r/o fx; assess bones-->hip OA?. COMPARISON: No exams were available for comparison TECHNIQUE: 2D digital imaging was performed. AP and frog-leg lateral views were performed. FINDINGS: Mild bilateral hip joint space narrowing. [id number] bilateral acetabular spurring. Spurring SI joints. Multiple surgical clips. IMPRESSION: Roughly symmetric [id number] hip joint space degenerative changes. No evidence of fracture. DATA REPOSITORY: RADIATION DOSE DELIVERED:
== END 2021-06-27 16:23 ==
PROVIDERS: PCP Nurse Practitioner Adult Health; Visit Provider Nurse Practitioner Adult Health
DX: M25.552 Pain in left hip (principal); M53.3 Sacrococcygeal disorders, not elsewhere classified; M16.12 Unilateral primary osteoarthritis, left hip; W19.XXXA Unspecified fall, initial encounter
CPT/HCPCS: 73502

== ENCOUNTER 2021-07-27 15:34 | Outpatient (REF) | payer OTHER, SELFPAY ==
[2021-07-27 15:33] LABS: Abs Immature Grans 0.05 10^3/uL (0.0-0.06); Absolute Basophil Count 0.07 10^3/uL (0.0-0.2); Absolute Eosinophil Count 0.15 10^3/uL (0.0-0.7); Absolute Lymphocyte Count 3.35 10^3/uL (1.2-3.4); Basophils % 0.6; Eosinophils % 1.3; HCT 45.3 % (36.0-46.0); HGB 15.2 g/dL (11.2-15.7); Immature Grans % 0.4; Lymphocytes % 28.8; MCH 29.1 pg (27.0-33.0); MCHC 33.6 % (32.0-36.0); MCV 86.6 fL (80-95); MPV 9.8 fL (8.0-11.0); Monocytes % 6.9; Nucleated RBC 0 %; Platelet Count 239 10^3/uL (130-400); RBC 5.23 10^6/uL (3.93-5.22); RDW 12.4 % (11.7-14.6); RDW-SD 39.3 fL; WBC 11.62 10^3/uL (4.4-10.8)
[2021-07-27 16:17] LABS: ALT 28 U/L (14-59); AST 17 U/L (15-37); Albumin 3.7 g/dL (3.4-5.0); Alkaline Phosphatase 128 U/L (46-116); Anion Gap 11.4 mmol/L (3-11); BUN 33 mg/dL (7-18); Bilirubin, Total 0.7 mg/dL (0.2-1.0); C-Reactive Protein 0.46 mg/dL (0.0-0.3); CO2 28.6 mmol/L (21.0-32.0); CREATININE 0.7 mg/dL (0.55-1.02); Calcium 9.5 mg/dL (8.5-10.1); Chloride 101 mmol/L (98-107); Glucose 105 mg/dL (74-106); Potassium 3.9 mmol/L (3.5-5.1); Sodium 141 mmol/L (136-145); Total Protein 7.5 g/dL (6.4-8.2)
== END 2021-07-27 15:35 | disposition home or self-care (01) ==
LOC: LBO 15:34
PROVIDERS: PCP Nurse Practitioner Adult Health; Visit Provider Nurse Practitioner Adult Health
DX: R10.13 Epigastric pain (principal); K30 Functional dyspepsia; R53.83 Other fatigue
CPT/HCPCS: 80053; 85025; 86140

== ENCOUNTER 2022-05-29 01:08 | Outpatient (CLI) | payer OTHER, SELFPAY ==
--- NOTE | 2022-05-29 14:25 | DI.MAMMO_ITS ---
Exam(s) MAMMO SCREENING EXAM: MAMMO SCREENING CLINICAL HISTORY: screening MAMMO Z12.39 TECHNIQUE: Bilateral full field digital CC and MLO mammographic images were obtained with 3D tomosyn thesis and utilizing computer aided detection (CAD). COMPARISON: Available for comparison. FINDINGS: Masses/Architectural Distortion: None seen. Microcalcifications: No suspicious pleomorphic-type are seen. Skin Thickening/Nipple Retraction: None. IMPRESSION: 1. No significant interval change with no specific features of malignancy noted. 2. Unless there is more urgent need, screening mammography is recommended, as per [employer] guidelines. BI-RADS Category 1 - Negative Breast Density - Category A - Almost entirely fatty Breast density category C or D implies that the patient has dense breast tissue. Dense breast tissue is very common and is not abnormal but dense breast tissue can make it harder to find cancer on a ma mmogram. Also, dense breast tissue may increase their breast cancer risk. This information about the result of the mammogram report was provided to the patient to raise their awareness. Use this report when you speak with the patient about their risks for breast cancer, which includes their family hist ory. At that time, you may recommend for more screening tests (Ultrasound or MRI) as they might be us eful based on their risk. A negative radiographic report should not delay biopsy if a dominant or clinically suspicious mass is present. Up to ten percent of cancers are not identified on mammography. A negative report may reinforce clinical impression. Adenosis and dense breasts may obscure an underlying neoplasm. False positive reports average 6 to 10%. Patient will receive a letter notifying them of these results.
== END 2022-05-29 01:28 ==
LOC: DI 01:08
PROVIDERS: PCP Nurse Practitioner Adult Health; Visit Provider Nurse Practitioner Adult Health
DX: Z12.31 Encounter for screening mammogram for malignant neoplasm of breast (principal)
CPT/HCPCS: 77063; 77067

== ENCOUNTER 2022-06-14 01:45 | Outpatient (RCR) | payer OTHER, SELFPAY ==
[2022-06-14] MEDS: Normal Saline Flush 10 ML SYR IVP (07:12)
[2022-06-14] MEDS: ZOLEDRONIC ACID/MANNITOL/WATER 5 MG/100 ML BTL 300 MG IVPB (07:12)
== END 2022-06-20 23:59 | disposition home or self-care (01) ==
LOC: INF 01:45
PROVIDERS: PCP Nurse Practitioner Adult Health; Visit Provider Nurse Practitioner Adult Health
DX: M81.0 Age-related osteoporosis without current pathological fracture (principal)
CPT/HCPCS: 96365; J3489

== ENCOUNTER 2022-09-07 10:25 | Outpatient (CLI) | payer OTHER, SELFPAY ==
[2022-09-07 10:09] LABS: HCT 43.9 % (36.0-46.0); MCH 29.9 pg (27.0-33.0); MCHC 34.2 % (32.0-36.0); MCV 88 fL (80-95); MPV 9.4 fL (8.0-11.0); Platelet Count 189 10^3/uL (130-400); RBC 5.02 10^6/uL (3.93-5.22); RDW 12.4 % (11.7-14.6); RDW-SD 39.5 fL; WBC 6.89 10^3/uL (4.4-10.8)
[2022-09-07 11:15] LABS: Iron 112 ug/dL (50-170); Total Iron Binding Capacity 307 ug/dL (250-450); Transferrin Sat 36 % (15-50)
[2022-09-07 11:19] LABS: Vitamin D 25 Total 70.7 ng/mL (30-100)
[2022-09-07 11:38] LABS: ALT 24 U/L (14-59); AST 18 U/L (15-37); Albumin 3.8 g/dL (3.4-5.0); Alkaline Phosphatase 62 U/L (46-116); Anion Gap 7.6 mmol/L (3-11); BUN 16 mg/dL (7-18); Bilirubin, Total 0.5 mg/dL (0.2-1.0); CO2 28.4 mmol/L (21.0-32.0); CREATININE 0.8 mg/dL (0.55-1.02); Calcium 9.5 mg/dL (8.5-10.1); Calculated LDL 69 mg/dL (<100); Chloride 107 mmol/L (98-107); Cholesterol 146 mg/dL (<200); Estimated GFR 80.71 (mL/min/1.73m2); Ferritin 69 ng/mL (8-252); Glucose 83 mg/dL (74-106); HDL Cholesterol 65 mg/dL (40-60); Sodium 143 mmol/L (136-145); Total Protein 7.5 g/dL (6.4-8.2); Triglyceride 63 mg/dL (<150); Vitamin B12 861 pg/mL (193-986)
[2022-09-07 11:39] LABS: Folate > 20.0 ng/mL (8.6-20.0)
[2022-09-07 18:23] LABS: Parathyroid Hormone,Intact 36 pg/mL (19-88)
[2022-09-11 09:33] LABS: Insulin 14.5 uIU/mL (<29.0)
[2022-09-13 17:23] LABS: Thiamine (Vitamin B1), WB 172 nmol/L (70-180)
== END 2022-09-07 10:26 | disposition home or self-care (01) ==
LOC: LBO 10:34
PROVIDERS: PCP Nurse Practitioner Adult Health; Visit Provider Nurse Practitioner Family
DX: E83.10 Disorder of iron metabolism, unspecified (principal); K91.2 Postsurgical malabsorption, not elsewhere classified; Z98.84 Bariatric surgery status; R73.01 Impaired fasting glucose; E16.1 Other hypoglycemia; R53.83 Other fatigue; F41.8 Other specified anxiety disorders
CPT/HCPCS: 36415; 80053; 80061; 82306; 85027; 82607; 82728; 82746; 83525; 83540; 83550; 83970; 84425

== ENCOUNTER 2022-09-14 09:55 | Outpatient (CLI) | payer OTHER, SELFPAY ==
[2022-09-14 10:34] LABS: Hemoglobin A1C 4.8 % (<5.7)
== END 2022-09-14 09:56 | disposition home or self-care (01) ==
LOC: LBO 09:55
PROVIDERS: PCP Nurse Practitioner Adult Health; Visit Provider Surgery
DX: R73.01 Impaired fasting glucose (principal); E16.1 Other hypoglycemia; Z98.84 Bariatric surgery status
CPT/HCPCS: 36415; 83036

== ENCOUNTER 2022-12-18 18:01 | Emergency (ER) | payer OTHER, SELFPAY ==
[2022-12-18 18:08] VITALS: BP 130/82; PULSE 82; RESP 14; TEMP 36.8; O2SAT 100
--- NOTE | 2022-12-18 18:59 | ED.GENADUL_ITS ---
Discharge Plan Disposition Patient Disposition: Home Condition: Good Discharge Details Clinical Impression: Hand laceration Primary Care Provider: Gladis Patricio ED Provider: Nikky Robertson Meds and New Rx's Prescriptions: Continued topiramate 50 mg tablet 100 mg PO QAM Rx Instructions: with phentermine 12 mg esomeprazole magnesium 40 mg capsule,delayed release(DR/EC) 40 mg PO .daily in AM Qty: 30 0RF Rx Instructions: Take in AM on empty stomach, separate from food, fluid, meds. mupirocin 2 % ointment 1 applic topical BID-TID Qty: 15 0RF Rx Instructions: May substitute with cream if less expensive; apply thin layer until area/ lesion resolved bisacodyl [Dulcolax (bisacodyl)] 5 mg tablet,delayed release (DR/EC) 5 mg PO ONCE PRN (Reason: constipation) multivitamin with minerals Capsule 2 cap PO DAILY Patient Comments: [facility] [place] bup[place]ion HCl 300 mg tablet extended release 24 hr 300 mg PO QAM Qty: 90 3RF phentermine 8 mg tablet 12 mg PO QAM Rx Instructions: must administer 30 minutes with breakfast per note dated 04/08/20 [facility] 05/25/20 [facility] [place] 1 tab by mouth every morning 03/06/22-[facility] [place] weight wellness note; increase to 1.5tabs a day. Elena Rojo MD 05/17/22 increased 16mg. semaglutide (weight loss) 0.5 mg/0.5 mL pen injector 0.5 mg subcut QWEEK Rx Instructions: administer weeks 5 through 8 of therapy aspirin 81 mg tablet,delayed release (DR/EC) 81 mg PO DAILY cyanocobalamin (vitamin B-12) 1,000 mcg capsule 1,000 mcg PO Q OTHER DAY calcium citrate-vitamin D3 [Calcitrate-Vitamin D] 315 mg-6.25 mcg (250 unit) t ablet 2 tab PO BID Rx Instructions: [facility] [place] zoledronic vcro-[id number]-[id number] [Reclast] 5 mg/100 mL piggyback See Rx Instructions IV ONCE Qty: 100 2RF Rx Instructions: 100mL; intravenously once; administer over at least 15 mins Discharge Instructions Instructions: Laceration (ED) Additional Instructions: Please keep your current dressing on for the next 48 hours. Remove after that time and reapply a Band-Aid with bacitracin. Monitor wound for signs infection including redness, warmth, drainage, increased pain, fever/chills. If you feel these are new/worsening symptoms please do care urgently once again. Otherwise, please follow-up with primary care in 1 week for reevaluation. Referrals: Gladis Patricio NP [Primary Care Provider] - Discharge Data Discharge Date/Time-TO BE ENTERED AT DEPARTURE: 12/18/22 21:30 Medical Decision Making Patient is a pleasant 67 year old RHD female presenting with c/c of bleeding laceration at the base of the right thumb. Had suffered laceration yesterday when using a mandalin. She reports taht she washed the wound, is UTD with tetanus, dressed the wound. Her concern at this time is that she removed the dressinga nd began to bleed again. She is not anticoagulated. Has had the dressing off while here with no recurrent bleeding. On exam, patient appears nontoxic. She has flap laceration with no active bleeding. Neurovascularly intact. We discussed treatment. At this time, I am concerned that the age of the wound increases infection risk if this was closed at this time. She is not actively bleeding. Will cleanse the wound, apply a dressing that is able to stay on and allow for appropriate clot to form. Advised f/u with PCP. Return precautions discussed. All of her questions and concerns were addressed, she is in agreement with this plan. Cleansed, nonadhesive dressing applied, applied longer lasting dressing. HPI General Date/Time Provider Initiated Documentation: 12/18/22 18:46 . Limitations to Documentation: no limitations . Information obtained by: patient, family (friend) and RN notes reviewed . Histo ry of Present Illness 67 year old F presents to the emergency department with the chief complaint of laceration at base of right thumb, described as moderate, with intensity rated at 5. Quality is described as aching, and is localized to the right and upper extremity. Patient reports no radiation. Patient started experiencing this day(s) and it has been constant. other things that improve symptom(s), (concerned about bleeding, came back when bandage removed) Other factors that worsen symptoms (removal of bleeding) . Patient notes no other symptoms.. Patient did receive the following treatments prior to arrival, none Related Data Home Medications Medication Instructions Recorded Confirmed aspirin 81 mg tablet,delayed 81 mg PO DAILY 09/01/19 12/13/22 release multivitamin with minerals 2 cap PO DAILY 09/03/19 12/13/22 calcium citrate 315 mg 2 tab PO BID 03/02/20 12/13/22 calcium-vitamin D3 6.25 mcg (250 unit) tablet (Calcitrate) cyanocobalamin (vitamin B-12) 1,000 mcg PO Q OTHER DAY 03/02/20 12/13/22 1,000 mcg capsule esomeprazole magnesium 40 mg 40 mg PO .daily in AM #30 caps 07/27/21 12/13/22 capsule,delayed release mupirocin 2 % topical ointment 1 applic topical BID-TID #15 grams 03/02/22 12/13/22 topiramate 50 mg tablet 100 mg PO QAM 03/13/22 12/13/22 zoledronic acid 5 mg/100 mL in See Rx Instructions IV ONCE #100 mL 06/05/22 12/13/22 mannitol 5 %-water intravenous piggybck (Reclast) bupropion HCl 300 mg 24 hr tablet, 300 mg PO QAM #90 tabs 09/11/22 12/13/22 extended release phentermine 8 mg tablet 12 mg PO QAM 09/11/22 12/13/22 semaglutide (weight loss) 0.5 0.5 mg subcut QWEEK 09/11/22 12/13/22 mg/0.5 mL subcutaneous pen injector bisacodyl 5 mg tablet,delayed 5 mg PO ONCE PRN constipation 12/13/22 12/13/22 release (Dulcolax (bisacodyl)) Previous Rx's Medication Instructions Recorded esomeprazole magnesium 40 mg 40 mg PO .daily in AM #30 caps 07/27/21 capsule,delayed release mupirocin 2 % topical ointment 1 applic topical BID-TID #15 grams 03/02/22 zoledronic acid 5 mg/100 mL in See Rx Instructions IV ONCE #100 mL 06/05/22 mannitol 5 %-water intravenous piggybck (Reclast) bupropion HCl 300 mg 24 hr tablet, 300 mg PO QAM #90 tabs 09/11/22 extended release Allergies Allergy/AdvReac Type Severity Reaction Status Date / Time codeine AdvReac Intermediate Hyper, Verified 12/13/22 16:23 kept awake all night hydrocodone bitartrate AdvReac Intermediate Hyper,antsy Verified 12/13/22 16:23 [From Vicodin] General Stated Complaint: Laceration LIBIA: 4 Review of Systems Constitutional Constitutional: Reports as per HPI, Denies chills and Denies fever(s) Musculoskeletal Musculoskeletal: Reports as per HPI Integumentary/Breasts Skin/Breast: Reports as per HPI Neurologic Neurologic: Reports as per HPI, Denies sensory deficit and Denies paresthesias PFSH All Active Problems (Updated 12/18/22 @ 21:23 by TODD Cordova) Hand laceration (Acute) Osteoporosis (Chronic ~04/2021) Hip/femoral neck T-score -2.7-->qualifies for bisphosphonate (see OV 07/25/21); osteopenia lumbar spine & left wrist; DEXA 04/2021 First Reclast 05/2022 Obesity (Chronic) s/p gastric surgery [facility] [place] [facility] [place] Nutrition Anxiety and depression (Chronic) Medical History Body mass index [BMI] 33.0-33.9, adult (~06/2021) 07/05/21 [facility] [place] Weight Wellness TH visit. with 3m f/u in September 2021 Enchondroma of right humerus 06/23/2019 with repeat 6m--> both stable Intertrigo (09/24/17) Lumbar strain Migraine (09/21/11) Nasal vestibulitis (08/26/15) Normal colonoscopy (~06/2020) Peripheral venous insufficiency (09/21/11) peripheral edema, prn hctz Primary osteoarthritis of both knees s/p b/l TKA 01/2018 Rosacea (09/21/11) Vitamin D deficiency (06/25/17) s/p bariatric surgery; resolved with supplementation Surgical History Cholecystectomy (03/07/13) H/O arthroscopy of knee Phyllis, right knee arthroscopy, chondroplasty of both the patella and medial tibial plateau and femoral condyle with microfracture. July and December 2011 both Phyllis. (Reviewed by Kevin BROOKS 01/29/18) H/O colonoscopy (10/02/07) H/O vein stripping (~08/21/00) Dr. Mayda HEAD History of Beatriz-en-Y gastric bypass (~11/2013) S/P panniculectomy (12/29/20) S/P tonsillectomy and adenoidectomy S/P tubal ligation (~04/1991) Status post total knee replacement, bilateral DOS: 01/29/18 Dr. Zafar Family History Mother , 05/06/16 age 83 multiple hosp for resp complication/pneumonia Diabetes Hypertension Hyperlipidemia Coronary heart disease CABG x4 in 60's Stroke at age 71 Breast cancer dx mid 70's Asthma Depression Father , age 80 COPD (chronic obstructive pulmonary disease) Bladder cancer Coronary heart disease stented Hypertension Hyperlipidemia Sister Obesity Brother Obesity Maternal Aunt Multiple sclerosis Social History Smoking/Tobacco Use Status: Never Smoking risk assessment performed?: Yes Alcohol Intake: current Alcohol Intake frequency: a few times a month Drug use: Never Substance use type: does not use Adopted: No Caregiver/Support person: No Foster care: No Household members: spouse Housing: house Number of Children: 1 number of grandchildren: 0 Communication Needs: None and Corrective Lenses Education Level: other Details: associates degree Do you need help understanding health information?: Never 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 [employer] Pets and animals: No Sexually active: Yes Do you think of yourself as: straight/heterosexual Current gender identity: female What is your relationship status?: How often do you talk on the phone with friends or family?: three or more times per week How often do you get together with friends or relatives?: once per week Do you belong to any clubs or organized social groups?: no Panel score (0-1 are the most socially isolated patients): 2 NHANES result reviewed/action taken: No What type of physical activity do you participate in: walking Duration: 15-30 minutes/day Frequency: 3-4 times per week Karmen/Jainism: Voodoo Special karmen needs: No Seatbelt use: always Helmet use: Yes Helmet use: always Drive intox or ride w/intox driver trainee: No Working smoke detector in home: Yes Fire extinguisher in home: Yes Carbon monox detector in home: Yes Firearms in home: Yes Firearms unloaded and locked: No Do you feel safe at home: Yes Do you feel safe in your relationship?: Yes History History Para 1 Hx # Term Pregnancies Multiple births Hx # Pregnancies Ectopic pregnancies AB induced Hx Number of Living Children AB spontaneous Exam Const General: cooperative, healthy appearing, comfortable, no acute distress and well developed Nutritional Appearance: average body habitus and well nourished Orientation: alert and awake Resp Effort & Inspection: normal respiratory effort, able to speak in complete sentences and no respiratory distress Cardio Rate: regular rate Rhythm: regular rhythm Skin Trauma: laceration Neuro General: patient alert and patient awake Cognition: normal cognition Speech: speech normal Gait: normal gait Sensory Exam: no sensory deficits noted Extrem Hand/finger images: 1. Flap laceration to base of right thumb. 2+ distal pulses. Full ROM, able to extend/flex against resistance. Intact capillary refill. No active bleeding, no visible FB. Course Vital Signs Vital signs: Vital Signs Temperature 36.8 C 12/18/22 18:08 Pulse 82 12/18/22 18:08 Respiratory Rate 14 12/18/22 18:08 Blood Pressure 130/82 12/18/22 18:08 Pulse Oximetry 100 12/18/22 18:08 Temperature 36.8 C 12/18/22 18:08 Temperature Source Skin 12/18/22 18:08 Pulse 82 12/18/22 18:08 Respiratory Rate 14 12/18/22 18:08 Blood Pressure 130/82 12/18/22 18:08 Blood Pressure Position Sitting 12/18/22 18:08 Pulse Oximetry 100 12/18/22 18:08 Oxygen Delivery Method Room Air 12/18/22 18:08 Oxygen Flow Rate 0 12/18/22 18:08 Pain Level 5 12/18/22 18:08
== END 2022-12-18 21:30 | disposition home or self-care (01) ==
PROVIDERS: Emergency Provider Physician Assistant; PCP Nurse Practitioner Adult Health
DX: S61.011A Laceration without foreign body of right thumb without damage to nail, initial encounter (principal); X58.XXXA Exposure to other specified factors, initial encounter
CPT/HCPCS: 99281; 99282

== ENCOUNTER 2023-07-09 05:13 | Outpatient (RCR) | payer OTHER, SELFPAY ==
[2023-07-09] MEDS: Normal Saline Flush 10 ML SYR IVP (07:37)
[2023-07-09] MEDS: ZOLEDRONIC ACID/MANNITOL/WATER 5 MG/100 ML BTL 300 MG IVPB (07:37)
== END 2023-07-22 23:59 | disposition home or self-care (01) ==
LOC: INF 05:13
PROVIDERS: PCP Nurse Practitioner Adult Health; Visit Provider Nurse Practitioner Adult Health
DX: M81.0 Age-related osteoporosis without current pathological fracture (principal)
CPT/HCPCS: 96365; J3489

== ENCOUNTER → 2023-08-24 02:12 | Outpatient (CLI) | payer OTHER, SELFPAY ==
--- NOTE | 2023-08-24 07:30 | DI.MAMMO_ITS ---
Exam(s) MAMMO SCREENING EXAM: MAMMO SCREENING CLINICAL HISTORY: screening,Z12.39. TECHNIQUE: Bilateral full field digital CC and MLO mammographic images were obtained with 3D tomosyn thesis and utilizing computer aided detection (CAD). COMPARISON: Prior mammograms were reviewed. FINDINGS: There has been no significant change in the appearance and distribution of the fibroglandular tissue. There are no new spiculated masses nor malignant appearing microcalcification groups. Small group of right breast microcalcifications remain stable. There is no significant architectural distortion nor skin thickening-retraction. IMPRESSION: Benign findings. No radiographic evidence of malignancy. BI-RADS Category 2 - Benign Findings Breast Density - Category B - Scattered areas of fibroglandular density Breast density Category C or D implies that the patient has dense breast tissue. Dense breast tissue can make it harder to find cancer on a mammogram. Dense breast tissue is also associated with an incr eased risk of breast cancer. This information about the result of the mammogram report was provided to the patient to raise their awareness. Use this report when you speak with the patient about their risks for breast cancer, which includes their family history. At that time, you may recommend additional screening tests (Ultrasoun d or MRI) as these tests may add significant information. A negative radiographic report should not delay biopsy if a dominant or clinically suspicious mass is present. Up to ten percent of cancers are not identified on mammography. A negative report may reinforce clinical impression. Adenosis and dense breasts may obscure an underlying neoplasm. False positive reports average 6 to 10%. Patient will receive a letter notifying them of these results.
== END ==
PROVIDERS: PCP Nurse Practitioner Adult Health; Visit Provider Nurse Practitioner Adult Health
DX: Z12.31 Encounter for screening mammogram for malignant neoplasm of breast (principal)
CPT/HCPCS: 77063; 77067

== ENCOUNTER 2024-02-20 10:32 | Outpatient (CLI) | payer OTHER, SELFPAY ==
[2024-02-20 10:56] LABS: ALT 22 U/L (14-59); AST 22 U/L (15-37); Albumin 3.6 g/dL (3.4-5.0); Alkaline Phosphatase 81 U/L (46-116); Anion Gap 6.8 mmol/L (3-11); BUN 18 mg/dL (7-18); Bilirubin, Total 0.67 mg/dL (0.2-1.0); CO2 31.2 mmol/L (21.0-32.0); CREATININE 0.7 mg/dL (0.55-1.02); Calcium 9.6 mg/dL (8.5-10.1); Calculated LDL 47 mg/dL (<100); Chloride 106 mmol/L (98-107); Cholesterol 126 mg/dL (<200); Estimated GFR 94.15 (mL/min/1.73m2); Glucose 86 mg/dL (74-106); HDL Cholesterol 70 mg/dL (40-60); Potassium 4.4 mmol/L (3.5-5.1); Sodium 144 mmol/L (136-145); Total Protein 7.2 g/dL (6.4-8.2); Triglyceride 49 mg/dL (<150); Vitamin D 25 Total 60.4 ng/mL (30-100)
== END 2024-02-20 10:33 | disposition home or self-care (01) ==
LOC: LBO 10:32
PROVIDERS: PCP Nurse Practitioner Adult Health; Visit Provider Nurse Practitioner Adult Health
DX: R73.01 Impaired fasting glucose (principal); M81.0 Age-related osteoporosis without current pathological fracture; E66.9 Obesity, unspecified; F41.9 Anxiety disorder, unspecified; F32.9 Major depressive disorder, single episode, unspecified
CPT/HCPCS: 36415; 80053; 80061; 82306; 83036

== ENCOUNTER 2024-05-15 02:34 | Outpatient (CLI) | payer OTHER, SELFPAY ==
--- NOTE | 2024-05-15 07:30 | DI.DEXA_ITS ---
Exam(s) XR DEXA BONE DENSITY W/WO MAITE EXAM: XR DEXA BONE DENSITY W/WO MAITE CLINICAL HISTORY: interval update s/p 2.5y on reclast,OSTEOPOROSIS,M81.0 TECHNIQUE: [employer] C densitometer analysis of left hip, lumbar spine and left forearm. Lat eral survey image of the thoracic and lumbar spine. COMPARISON: CR XR DEXA BONE DENSITY W/WO MAITE from 05/13/[address] ABDOMEN PELVIS W from 05/16/2021 FINDINGS: Lateral view of the thoracic and lumbar spine shows a stable mild L2 compression fracture. No new co mpression fractures. Bone mineral density measurements of the lumbar spine correspond to a total T-score of -1.4, in the osteopenic range. This represents a 4.2 percent increase compared with 202 Bone mineral density measurements of the left hip correspond to a total T-score of -3.4. This repre sents a 21.6 percent decrease compared with 202. the femoral neck T-score is -3.4, in the osteopor otic range. Theleft forearm bone mineral density measurements correspond to a T-score of the distal 3rd of -2.5, in the osteoporotic range. This is not significantly changed from prior.. IMPRESSION: Osteopenia of the lumbar spine. Osteoporosis of the hip and forearm.
== END 2024-05-15 02:54 ==
LOC: DI 02:34
PROVIDERS: PCP Nurse Practitioner Adult Health; Visit Provider Nurse Practitioner Adult Health
DX: M81.0 Age-related osteoporosis without current pathological fracture (principal)
CPT/HCPCS: 77080

== ENCOUNTER 2024-07-02 16:09 | Outpatient (CLI) | payer OTHER, SELFPAY ==
--- NOTE | 2024-07-02 16:00 | RT.EKG_ITS ---
APPROVED REPORT Exam: Resting ECG Reason for Exam: Chest pressure Patient Location: O HR:73 bpm ECG Measurements Heart Rate 73 AXIS MN 130 P 67 QRSd 87 QRS -24 QT 391 T 61 QTc 431 Conclusion Sinus rhythm...normal P axis, V-rate 50- 99 Borderline left axis deviation...QRS axis (-15,-29)
== END 2024-07-02 16:10 | disposition home or self-care (01) ==
LOC: DI.KIM 16:10
PROVIDERS: PCP Nurse Practitioner Adult Health; Visit Provider Nurse Practitioner Adult Health
DX: R07.89 Other chest pain (principal)
CPT/HCPCS: 93010

== ENCOUNTER 2024-07-03 09:59 | Outpatient (CLI) | payer OTHER, SELFPAY ==
[2024-07-03] MEDS: Barium Sulfate 2% W/V-Creamy Vanilla Smoothie 450 ML BTL PO ×2 (11:13→11:14)
[2024-07-03 12:57] LABS: CREATININE 0.6 mg/dL (0.55-1.02)
[2024-07-03] MEDS: Omnipaque 350 MG/ML 100 ML BTL IJ (13:28)
--- NOTE | 2024-07-03 13:45 | DI.CT_ITS ---
Exam(s) CT ABDOMEN PELVIS W EXAM: CT ABDOMEN PELVIS W CLINICAL HISTORY: ? acute diverticulitis,llq pain,diverticulosis,r10.32 TECHNIQUE: Imaging Protocol: Axial computed tomography images with coronal and sagittal reformatted images were created and reviewed. CONTRAST MATERIAL: Intravenous: Omnipaque 350 Contrast volume:75 mL Oral: Yes COMPARISON: CT CT ABDOMEN PELVIS W from 05/16/2021 CR XR DEXA BONE DENSITY W/WO MAITE from 05/15/2024 FINDINGS: ABDOMEN: Lung Bases: There is a stable right lower lobe pulmonary nodule. The lungs are otherwise clear. Liver: Normal density. There is again seen a simple cyst in the liver. No suspicious hepatic masses are present. Portal, Superior Mesenteric, and Splenic Veins: Unremarkable. Gallbladder and Biliary Tract: Status post cholecystectomy. Stable dilatation of the extrahepatic bi le ducts. Pancreas: Normal density, no abnormal calcifications or inflammatory process. Spleen: Normal. Adrenals: No masses seen. Kidneys: Normal size, contour and axis. There is left nephrolithiasis. There is a 4 mm stone in the proximal left ureter and a 3 mm stone in the distal left ureter. Minimal dilatation of the collectin g system is seen. The right kidney there is a staghorn calculus present. There is nephrolithiasis. There is mild dilatation and enhancement of the collecting system. No perinephric stranding or kalyani opathy is present. No perinephric fluid collections are seen. Abdominal Aorta: Abdominal portion non-dilated. Atherosclerotic calcification is present. Bowel: There is a large amount of stool throughout the colon suggesting constipation. There is no theron dence of bowel obstruction. There has been prior gastric surgery. Appendix is unremarkable. Peritoneal Cavity: No ascites, collection or mesenteric inflammatory response. No free air. Lymph Nodes: Within normal limits. Bones: Within normal limits for the patient's age. There is an old compression fracture deformity of L4. There is a compression fracture deformity of L2 which was present on the DEXA scan from 5. No new compression fractures are seen in the lumbar spine. Soft Tissues: There is a stable fluid-filled subcutaneous lesion in the left inguinal region. It is f luid attenuation consistent with a cyst. PELVIS: Bladder: Symmetric distention, no gross wall thickening. Reproductive Organs: Unremarkable as visualized. Lymph Nodes: Within normal limits. Bones: Within normal limits for the patient's age. IMPRESSION: 1. No evidence of a bowel infection or inflammatory process. 2. Large amount of stool throughout the colon suggesting constipation. 3. In the left kidney, there is nephrolithiasis and ureterolithiasis with minimal dilatation of the left renal collecting system. 4. There is a staghorn calculus on the right with nephrolithiasis. There is mild dilatation and enhan cement of the collecting system. Infection should be considered. No perinephric fluid collection or a denopathy is seen at this time. Urology consult should be considered. Unexpected findings RADIATION DOSE DELIVERED: 365.71mGy.cm Total DLP DATA REPOSITORY: All CT scans at this facility are submitted to the National Radiology Data Registry (NRDR) Dose Index Registry (DIR) with the [employer] (ACR). RADIATION OPTIMIZATION: All CT scans at this facility use at least one of these dose optimization te chniques: automated exposure control; mA and/or kV adjustment per patient size (includes targeted exa ms where dose is matched to clinical indication); or iterative reconstruction.
== END 2024-07-03 10:19 ==
LOC: DI 09:59
PROVIDERS: PCP Nurse Practitioner Adult Health; Visit Provider Nurse Practitioner Adult Health
DX: K57.30 Diverticulosis of large intestine without perforation or abscess without bleeding
CPT/HCPCS: 74177; 82565; J3490

== ENCOUNTER 2024-07-03 15:04 | Outpatient (REF) | payer OTHER, SELFPAY ==
[2024-07-03 15:53] LABS: Bilirubin Negative (Negative); Blood Large (Negative); Clarity Sl Cloudy (Clear); Glucose Negative (Negative); Ketones Negative (Negative); Leukocyte Esterase Trace (Negative); Nitrite Negative (Negative); Specific Gravity 1.015 (1.005-1.025); Urobilinogen 0.2 mg/dL (Up to 0.2)
[2024-07-03 16:05] LABS: Bacteria Negative HPF (Negative); C & S Indicated? No; Crystals Rare Calcium Oxalate HPF (Negative); Epithelial Cells Negative HPF (Negative); Mucus Negative (Negative); RBC >50 HPF (0-2); WBC 0-2 HPF (0-5)
== END 2024-07-03 15:05 | disposition home or self-care (01) ==
LOC: LBN 15:04
PROVIDERS: PCP Nurse Practitioner Adult Health; Visit Provider Nurse Practitioner Adult Health
DX: R31.0 Gross hematuria (principal); R07.89 Other chest pain; K57.90 Diverticulosis of intestine, part unspecified, without perforation or abscess without bleeding; R10.32 Left lower quadrant pain; F41.9 Anxiety disorder, unspecified; F32.9 Major depressive disorder, single episode, unspecified
CPT/HCPCS: 81003; 81015

== ENCOUNTER 2024-08-13 03:08 | Outpatient (RCR) | payer OTHER, SELFPAY ==
[2024-08-13] MEDS: ZOLEDRONIC ACID/MANNITOL/WATER 5 MG/100 ML BTL 300 MG IVPB (07:00)
[2024-08-13] MEDS: Normal Saline Flush 5 ML SYR IVP (07:01)
== END 2024-08-20 23:59 | disposition home or self-care (01) ==
LOC: INF 03:08
PROVIDERS: PCP Nurse Practitioner Adult Health; Visit Provider Nurse Practitioner Adult Health
DX: M81.0 Age-related osteoporosis without current pathological fracture (principal)
CPT/HCPCS: 96365; J3489

== ENCOUNTER 2024-09-04 10:29 | Outpatient (REF) | payer OTHER, SELFPAY ==
[2024-09-04 11:28] LABS: Bilirubin Negative (Negative); Blood Trace-intact (Negative); Clarity Sl Cloudy (Clear); Glucose Negative (Negative); Ketones Trace mg/dL (Negative); Leukocyte Esterase Negative (Negative); Nitrite Negative (Negative); Specific Gravity 1.025 (1.005-1.025); Urobilinogen 0.2 mg/dL (Up to 0.2); pH 6.5 (5-8)
[2024-09-04 12:00] LABS: Bacteria Many HPF (Negative); C & S Indicated? No; Casts Negative LPF (Negative); Crystals Negative HPF (Negative); Epithelial Cells Rare HPF (Negative); Mucus Negative (Negative)
== END 2024-09-04 10:30 | disposition home or self-care (01) ==
LOC: LBN 10:29
PROVIDERS: PCP Nurse Practitioner Adult Health; Visit Provider Nurse Practitioner Gerontology
DX: N20.0 Calculus of kidney (principal); R68.83 Chills (without fever)
CPT/HCPCS: 81003; 81015; 87086

== ENCOUNTER 2024-09-05 06:18 | Day surgery (SDC) | payer OTHER, SELFPAY ==
--- NOTE | 2024-09-05 06:45 | W.PM.HP.N ---
Date of service: 09/05/24 Time of Service: 06:45 Assessment and Plan Assessment and plan (1) Bilateral nephrolithiasis: Status: Acute Assessment and plan: With her urine findings and her chills, I am concerned about her progressing to sepsis. We have agreed to an urgent cystoscopy and bilateral retrograde pyelogram. At a minimum, I will place a right sided ureteral stent. If she has not passed her left-sided ureteral stones, I may place a left-sided ureteral stent as well. She will be discharged with antibiotic coverage which may need to be adjusted once her urine culture is finalized. Once any bacteriuria has been successfully treated, we will plan a return to the operating room for ureteroscopy and holmium laser lithotripsy. History of Present Illness History of Present Illness Chief Complaint: Bilateral kidney stones Narrative: This is a 69-year-old woman who was initially seen for bilateral kidney stones. At the time of her diagnosis, she was having left-sided pain. She was found to have small ureteral stones, but she was not certain that she actually passed those stones. She was found to have a large larger right-sided kidney stone that was asymptomatic. For the past week, she has been having right sided discomfort which seems to be worse in the past few days. She has urinary frequency but no dysuria or gross hematuria. She began having some chills today. She has not had any documented fever. When I saw her in the office yesterday, her urine was suspicious for a urinary tract infection. Her culture is still pending, but I did give her a single dose of Levaquin yesterday afternoon. A renal ultrasound showed right-sided hydronephrosis with large stone burden on the right. We did not identify any hydronephrosis on the left. With concerns for a urinary tract infection and hydronephrosis, we recommended an urgent stent placement. She presents today for cystoscopy, bilateral retrograde pyelogram and possible bilateral ureteral stents based on the findings. We will not plan on doing the holmium laser lithotripsy today until she has been treated with appropriate antibiotics and her urine is sterile. She feels bloated but has no nausea or vomiting Review of Systems Narrative: No fevers No vision change or dysphasia No diabetes or thyroid No shortness of breath, cough or hemoptysis No chest pain or palpitations No nausea, vomiting, hepatitis, ulcers, jaundice No seizures, strokes or peripheral neuropathy No bleeding disorders or anemia Osteoporosis. No gout PFSH All Active Problems Bilateral nephrolithiasis (Acute ~06/2024) Gross hematuria (Acute) Hyperinsulinemia (Acute) [facility] Weight and Wellness 05/02/23 IFG (impaired fasting glucose) (Acute) [facility] Weight [facility] Wellness 05/02/23 Osteoporosis (Chronic ~04/2021) Hip/femoral neck T-score -2.7-->qualifies for bisphosphonate (see OV 07/25/21); osteopenia lumbar spine & left wrist; DEXA 04/2021 First Reclast 05/2022 Obesity (Chronic) s/p gastric surgery [facility] 2013 [facility] Nutrition Anxiety and depression (Chronic) Medical History Diverticulosis (~2020) on colonoscopy Lumbar strain Body mass index [BMI] 33.0-33.9, adult (~06/2021) 07/05/21 [facility] Weight Wellness TH visit. with 3m f/u in September 2021 Normal colonoscopy (~06/2020) Enchondroma of right humerus 06/23/2019 with repeat 6m--> both stable Primary osteoarthritis of both knees s/p b/l TKA 01/2018 Vitamin D deficiency (06/25/17) s/p bariatric surgery; resolved with supplementation Rosacea (09/21/11) Peripheral venous insufficiency (09/21/11) peripheral edema, prn hctz Nasal vestibulitis (08/26/15) Migraine (09/21/11) Intertrigo (09/24/17) Surgical History History of Beatriz-en-Y gastric bypass (~11/2013) S/P panniculectomy (12/29/20) Status post total knee replacement, bilateral DOS: 01/29/18 Dr. Zafar H/O arthroscopy of knee Garyisfran, right knee arthroscopy, chondroplasty of both the patella and medial tibial plateau and femoral condyle with microfracture. July and December 2011 both Dreisbach. (Reviewed by Kevin BROOKS 01/29/18) S/P tubal ligation (~04/1991) S/P tonsillectomy and adenoidectomy H/O vein stripping (~08/21/00) Dr. Mayda HEAD H/O colonoscopy (10/02/07) Cholecystectomy (03/07/13) Family History Mother , 05/06/16 age 83 multiple hosp for resp complication/pneumonia Diabetes Hypertension Hyperlipidemia Coronary heart disease CABG x4 in 60's Stroke at age 71 Breast cancer dx mid 70's Asthma Depression Father , age 80 COPD (chronic obstructive pulmonary disease) Bladder cancer Coronary heart disease stented Hypertension Hyperlipidemia Sister Obesity Brother Obesity Maternal Aunt Multiple sclerosis Mother Diabetes Depression Heart disease Breast cancer Stroke Asthma Father Heart disease Hyperlipidemia Cancer Social History Smoking/Tobacco Use Status: Never Smoking risk assessment performed?: Yes Alcohol Intake: former Drug use: Never Substance use type: does not use Adopted: No Caregiver/Support person: No Foster care: No Household members: spouse Housing: house Number of Children: 1 number of grandchildren: 1 Communication Needs: Corrective Lenses Education Level: other Details: associates degree Do you need help understanding health information?: Never 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 [employer] Pets and animals: No Sexually active: Yes Do you think of yourself as: straight/heterosexual Current gender identity: female What is your relationship status?: How often do you talk on the phone with friends or family?: three or more times per week How often do you get together with friends or relatives?: once per week How often do you attend spiritism or zoroastrianism services?: decline to answer Do you belong to any clubs or organized social groups?: no Panel score (0-1 are the most socially isolated patients): 2 NHANES result reviewed/action taken: No What type of physical activity do you participate in: walking Duration: 15-30 minutes/day Frequency: 1-2 times per week Karmen/Temple: Jew Special karmen needs: No Seatbelt use: always Helmet use: Yes Helmet use: always Drive intox or ride w/intox pick up driver: No Working smoke detector in home: Yes Fire extinguisher in home: Yes Carbon monox detector in home: Yes Firearms in home: Yes Firearms unloaded and locked: No Do you feel safe at home: Yes Do you feel safe in your relationship?: Yes History History Para 1 Hx # Term Pregnancies Multiple births Hx # Pregnancies Ectopic pregnancies AB induced Hx Number of Living Children AB spontaneous Meds Allergies and Home Medications Allergies Allergy/AdvReac Type Severity Reaction Status Date / Time codeine AdvReac Intermediate Hyper, Verified 09/05/24 06:46 kept awake all night hydrocodone bitartrate (From AdvReac Intermediate Hyper,antsy Verified 09/05/24 06:46 Vicodin) Home Medications ?Medication ?Instructions ?Recorded ?Confirmed ?Type aspirin 81 mg tablet,delayed 81 mg PO DAILY 09/01/19 09/05/24 History release multivitamin with minerals 2 cap PO DAILY 09/03/19 09/05/24 History calcium 315 mg (as 2 tab PO BID 03/02/20 09/05/24 History citrate)-vitamin D3 6.25 mcg (250 unit) tablet (Calcitrate) cyanocobalamin (vitamin B-12) 1,000 mcg PO Q OTHER DAY 03/02/20 09/05/24 History 1,000 mcg capsule zoledronic acid 5 mg/100 mL in See Rx Instructions IV ONCE #100 mL 06/05/22 09/05/24 Rx mannitol 5 %-water intravenous piggybck (Reclast) bupropion HCl 300 mg 24 hr tablet, 300 mg PO QAM #90 tabs 10/24/23 09/05/24 Rx extended release fluoxetine 20 mg capsule 20 mg PO DAILY #90 caps 07/02/24 09/05/24 Rx tirzepatide (weight loss) 5 mg/0.5 5 mg subcut QWEEK 09/04/24 09/04/24 History mL subcutaneous pen injector (Zepbound) Exam Const General: cooperative Neck Neck: normal visual inspection and supple Resp Effort & Inspection: normal respiratory effort Cardio Rate: regular rate Rhythm: regular rhythm GI Palpation: soft Neuro General: patient alert, patient awake and patient oriented x3 Time Spent Time spent with Patient: <40 minutes Time was spent: other
[2024-09-05 06:47] VITALS: BP 112/68; PULSE 83; RESP 14; TEMP 36.5; O2SAT 96
[2024-09-05] MEDS: Lactated Ringers 1,000 ML 80 ML IV (07:13)
--- NOTE | 2024-09-05 07:17 | W.ANESPRE ---
General Info Date of Service Date Performed: 09/05/24 Height: 5 ft 7 in Weight: 68.2 kg Body Mass Index (BMI): 23.5 Surgical Procedure: Operation Date: 09/05/24 07:40 Proposed Procedure Side Surgeon p Cystoscopy/Retrograde/ Stent Placement Bilateral Karl Stern MD Meds Allergies and Home Medications Allergies Allergy/AdvReac Type Severity Reaction Status Date / Time codeine AdvReac Intermediate Hyper, Verified 09/05/24 06:46 kept awake all night hydrocodone bitartrate (From AdvReac Intermediate Hyper,antsy Verified 09/05/24 06:46 Vicodin) Home Medication ?Medication ?Instructions ?Recorded aspirin 81 mg tablet,delayed 81 mg PO DAILY 09/01/19 release multivitamin with minerals 2 cap PO DAILY 09/03/19 calcium 315 mg (as 2 tab PO BID 03/02/20 citrate)-vitamin D3 6.25 mcg (250 unit) tablet (Calcitrate) cyanocobalamin (vitamin B-12) 1,000 mcg PO Q OTHER DAY 03/02/20 1,000 mcg capsule zoledronic acid 5 mg/100 mL in See Rx Instructions IV ONCE #100 mL 06/05/22 mannitol 5 %-water intravenous piggybck (Reclast) bupropion HCl 300 mg 24 hr tablet, 300 mg PO QAM #90 tabs 10/24/23 extended release fluoxetine 20 mg capsule 20 mg PO DAILY #90 caps 07/02/24 tirzepatide (weight loss) 5 mg/0.5 5 mg subcut QWEEK 09/04/24 mL subcutaneous pen injector (Zepbound) Current Visit Medications: Current Medications Generic Name Dose Route Start Last Admin Trade Name Freq PRN Reason Stop Dose Admin Ringer's Solution 1,000 mls @ 80 mls/hr 09/05/24 06:25 09/05/24 07:13 IV 10/05/24 06:24 80 mls/hr INFUSION CJ Administration Cefazolin Sodium/Dextrose 2 gm in 50 mls @ 100 mls/hr 09/05/24 06:25 Ancef Duplex IVPB 10/05/24 06:24 PREOP CJ IV Miscellaneous Supplies 1 each 09/05/24 06:25 Iv Access IV 10/05/24 06:24 DIRECTED CJ Sodium Chloride 0 ml 09/05/24 06:23 Normal Saline Flush 10 Ml Syr IVP 10/05/24 06:22 PRN PRN Sodium Chloride 0 ml 09/05/24 08:30 Normal Saline Flush 10 Ml Syr IVP 10/05/24 08:29 BID CJ Sodium Chloride 0 ml 09/05/24 06:23 Normal Saline 10 Ml Vial IJ 10/05/24 06:22 DIRECTED PRN PFSH Active Problems Active Problems: Problem Status Onset Code Bilateral nephrolithiasis Acute ~06/2024 N20.0 Gross hematuria Acute R31.0 Hyperinsulinemia Acute E16.1 IFG (impaired fasting glucose) Acute R73.01 Osteoporosis Chronic ~04/2021 M81.0 Obesity Chronic E66.9 Anxiety and depression Chronic F41.9, F32.9 Medical History Medical History Diverticulosis (~2020) on colonoscopy Lumbar strain Body mass index [BMI] 33.0-33.9, adult (~06/2021) 07/05/21 [facility] [place] Weight Wellness TH visit. with 3m f/u in September 2021 Normal colonoscopy (~06/2020) Enchondroma of right humerus 06/23/2019 with repeat 6m--> both stable Primary osteoarthritis of both knees s/p b/l TKA 01/2018 Vitamin D deficiency (06/25/17) s/p bariatric surgery; resolved with supplementation Rosacea (09/21/11) Peripheral venous insufficiency (09/21/11) peripheral edema, prn hctz Nasal vestibulitis (08/26/15) Migraine (09/21/11) Intertrigo (09/24/17) Surgical History Surgical History History of Beatriz-en-Y gastric bypass (~11/2013) S/P panniculectomy (12/29/20) Status post total knee replacement, bilateral DOS: 01/29/18 Dr. Zafar H/O arthroscopy of knee Dreisbach, right knee arthroscopy, chondroplasty of both the patella and medial tibial plateau and femoral condyle with microfracture. July and December 2011 both Dreisbach. (Reviewed by Kevin BROOKS 01/29/18) S/P tubal ligation (~04/1991) S/P tonsillectomy and adenoidectomy H/O vein stripping (~08/21/00) Dr. Mayda HEAD H/O colonoscopy (10/02/07) Cholecystectomy (03/07/13) Tobacco Smoking/Tobacco Use Status: Never Passive smoking exposure: No Alcohol Alcohol Intake: former Substance Use Substance use: Never Substance use type: does not use Prental History History Para 1 Hx # Term Pregnancies Multiple births Hx # Pregnancies Ectopic pregnancies AB induced Hx Number of Living Children AB spontaneous Vital Signs and Lab Results Vital Signs Most Recent Vital Signs in EMR: Most Recent Vital Signs Temp Pulse Resp BP Pulse Ox 36.5 C 83 14 112/68 96 09/05/24 06:47 09/05/24 06:47 09/05/24 06:47 09/05/24 06:47 09/05/24 06:47 Lab Results Blood Type / Crossmatch: No Data to Display Complete Blood Count: No Data to Display Complete Metabolic Panel: No Data to Display Liver Function Panel: No Data to Display Coagulation Panel: No Data to Display Cardiac Panel: No Data to Display Arterial Blood Gas: No Data to Display Venous Blood Gas: No Data to Display Pancreas Panel: No Data to Display Thyroid Panel: No Data to Display Infectious Disease: No Data to Display Blood Cultures: No Data to Display Toxicology Panel: No Data to Display Anesthesia Assessment and Plan Anesthesia History Personal History: No History of Anesthesia Complications Family History: No Family History of Anesthesia Complications Exercise Tolerance Exercise Tolerance: Metabolic Equivalents>4 Pertinent Negatives Pertinent Negatives: No Symptoms of GERD, No Major Cardiovascular Symptoms or Complaints, No Major Pulmonary Symptoms or Complaints and No History of CVA/TIA Cardiac & Pulmonary Exam Cardiac Exam: Normal S1/S2 Heart Sounds Pulmonary Exam: Clear Bilateral Breath Sounds Implantable Cardiac Device Does patient have a Pacemaker or an ICD?: No Airway Exam Known Difficult Airway: No Mallampati Class: 1 Mouth Opening: Normal (> 3cm) Thyromental Distance: Greater than 3 cm Neck Range of Motion: Full ROM Neck Circumference: Normal Teeth Condition: Normal Dentition ASA Classification ASA Score: ASA 2 Emergency Case?: No NPO Status NPO Status: NPO Clears >2 hours, Solids >8 hours Anesthesia Plan Resuscitation Status: Full Code Anesthesia Technique: General Anesthesia Airway Planned: Natural Airway Monitors Used: Standard Monitors Preoperative Comments:: 5 days since last Zepbound dose, no GERD or gastric distress today or around time of injection
[2024-09-05 07:18] VITALS: BMI 23.5
[2024-09-05] MEDS: ceFAZolin 2 GM/50 ML BAG IVPB (07:35)
[2024-09-05] MEDS: Lidocaine 2% Jelly 6 ML SYR (07:53)
[2024-09-05] MEDS: Omnipaque 300 MG/ML 50 ML BTL (07:59)
--- NOTE | 2024-09-05 08:18 | PDOC.DSDIS_ITS ---
Date of service: 09/05/24 Discharge Plan Disposition Patient Disposition: Home Condition: Stable Discharge Details Reason For Visit: ureteral stent placement Attending Provider: Karl Stern Primary Care Provider: Gladis Patricio Home Meds and New Rx's Prescriptions: New levofloxacin 500 mg tablet 500 mg PO DAILY Qty: 7 0RF No Action multivitamin with minerals Capsule 2 cap PO DAILY Patient Comments: [facility] fluoxetine 20 mg capsule 20 mg PO DAILY Qty: 90 0RF Rx Instructions: Start 20mg daily for 1 month and then may increase to 40mg daily. aspirin 81 mg tablet,delayed release (DR/EC) 81 mg PO DAILY cyanocobalamin (vitamin B-12) 1,000 mcg capsule 1,000 mcg PO Q OTHER DAY calcium citrate-vitamin D3 [Calcitrate-Vitamin D] 315 mg-6.25 mcg (250 unit) tablet 2 tab PO BID Rx Instructions: [facility] zoledronic [id number] [Reclast] 5 mg/100 mL piggyback See Rx Instructions IV ONCE Qty: 100 2RF Rx Instructions: 100mL; intravenously once; administer over at least 15 mins bupropion HCl 300 mg tablet extended release 24 hr 300 mg PO QAM Qty: 90 3RF Zepbound 5 mg/0.5 mL pen injector 5 mg SUBCUT QWEEK Patient Comments: inject 5mg SUBCUTANEOUSLY ONCE WEEKLY Discharge Instructions Additional Instructions: No need to strain urine My office will contact you with your final urine culture report - we may need to change antibiotics based on the culture results My office will also contact you with a date for a repeat surical procedure anna garcia which we will remove your ureteral stent and do ureteroscopy and holmium laser lithotripsy of your right sided stones Stand Alone Forms: Anesthesia Discharge Inst., Edward Minaya (DSU) Activity:: Activity as Tolerated Shower/Bathe:: 24 hours Diet:: As Tolerated Discharge Orders Discharge Orders: Discharge Order (Routine); Ordered 09/05/24 Ordered By: Karl Stern DS: Diagnosis Discharge Diagnosis (1) Bilateral nephrolithiasis: Status: Acute
--- NOTE | 2024-09-05 08:22 | DI.RAD_ITS ---
Exam(s) XR RETROGRADE IN OR EXAM: XR RETROGRADE IN OR CLINICAL HISTORY: bilateral kidney stones. TECHNIQUE: 2D digital imaging was performed. COMPARISON: No exams were available for comparison FINDINGS: Fluoroscopy provided during bilateral urologic procedure. Images reveal placement of a right-sided u reteral stent. See procedure report for details. IMPRESSION: Radiation exposure index/cumulative dose:gilda Rodriguez= 10.391mGy DATA REPOSITORY: RADIATION DOSE DELIVERED:
[2024-09-05 08:23] VITALS: BP 104/61; PULSE 72; RESP 14; TEMP 36; O2SAT 97
--- NOTE | 2024-09-05 08:24 | W.PM.OP ---
Operative Note Operative Note PRE-OP DIAGNOSIS: Bilateral kidney stones POST-OP DIAGNOSIS: same Right hydronephrosis PROCEDURE: Cystoscopy, bilateral retrograde pyelogram, insert right ureteral stent SURGEON: Karl Stern ANESTHESIA TYPE: Local By Surgeon and General:No Airway Refer to Anesthesia Record ESTIMATED BLOOD LOSS: 5 PATHOLOGY: none sent COMPLICATIONS: None Patient was transported to: same day Patient's condition: stable Implants: 6 Citizen [place] by 22 to 30 cm right ureteral stent Indications: This is a 69-year-old woman who was identified as having bilateral kidney stones. At the time of her initial presentation, she was symptomatic on the left side and had small ureteral stones that were treated conservatively. She had much larger stones on the right side but they were asymptomatic at that time. She now is having right flank pain along with chills. Her urine showed some bacteria present. Her urine culture is still pending. She presents now for urgent stent placement with a plan for subsequent ureteroscopy and holmium laser lithotripsy once her bacteriuria has been successfully treated Findings: Right hydronephrosis with migration of at least 1 stone into the right mid ureter Procedure Description: The patient was given IV antibiotics and brought to the operating room on 09/05/2024. After successful induction of general anesthesia without intubation, she was placed in the dorsal lithotomy position. Her genitalia was prepped and draped. 2% Xylocaine jelly was instilled into the urethra. A 22 [place] rigid cystoscope was then passed through the urethra into the bladder. The bladder was inspected with a 30 degree lens. The base of the bladder had descended consistent with a mild cystocele. Both ureteral orifices appeared normal in configuration. No blood or purulent drainage was seen coming from either side. I then started on the right side and passed a 5 [place] access catheter through the cystoscope into the right ureteral orifice. A retrograde pyelogram was obtained by injecting Omnipaque through the access catheter under fluoroscopic guidance. There did appear to be significant ureteral dilation in the proximal two thirds of the ureter. This was associated with a filling defect in the distal ureter near the level of the pelvic brim. Additional filling defects were seen up in the kidney. A guidewire was then advanced through the lumen of the access catheter. A hydronephrotic drip was found from the kidney, but I did not visualize any purulent material draining from the kidney. I removed the access catheter and passed a 6 [place] variable length stent over the guidewire. The stent was positioned with the proximal end in the upper pole calyx. The distal end was in the distal ureter above the level of the ureteral vesicle junction. I then passed a 5 [place] access catheter into the left ureteral orifice. A retrograde pyelogram was obtained by injecting Omnipaque through the access catheter under fluoroscopic guidance. I did not visualize any filling defects within the ureter. The left side drained promptly on a 5-minute drainage film. We will make plans to bring the patient back to the operating room for semirigid ureteroscopy with stent removal and holmium laser lithotripsy of any distal ureteral stones followed by flexible ureteroscopy with holmium laser lithotripsy of more proximal ureteral and renal stones. The patient tolerated this procedure well with no complications. Date of Procedure: 09/05/24
[2024-09-05] MEDS: Phenazopyridine 200 MG TAB PO (08:45)
--- NOTE | 2024-09-05 08:51 | W.ANESPOSTOP ---
Postoperative Evaluation Date, Time and Location Date Performed: 09/05/24 Time Performed: 08:23 Patient Location: Day Surgery Unit Vital Signs Most Recent Imported Vital Signs: Most Recent Vital Signs Temp Pulse Resp BP Pulse Ox 36 C L 72 14 104/61 97 09/05/24 08:23 09/05/24 08:23 09/05/24 08:23 09/05/24 08:23 09/05/24 08:23 Pain Score Most Recent Pain Score: Most Recent Pain Score Pain Level 0 09/05/24 08:23 Assessment Mental Status: Awake (Alert & Oriented to Patient Baseline) Airway and Respiratory Function: Patent airway with normal (patient baseline) respiratory exam Cardiovascular Function: Hemodynamically Stable Hydration Status: Adequately Hydrated Nausea & Vomiting: No Nausea or Vomiting Pain: Pt. Denies Any Pain Peripheral Nerve Block: Patient did not receive a nerve block
[2024-09-05 08:55] VITALS: BP 106/64; PULSE 67; RESP 14; TEMP 36.1; O2SAT 100
== END 2024-09-05 09:29 | disposition home or self-care (01) ==
PROVIDERS: PCP Nurse Practitioner Adult Health; Visit Provider Urology
PROC: (CPT 74450; principal; 2024-09-05 07:30)
DX: N20.0 Calculus of kidney (principal)
CPT/HCPCS: 52332; 74420; J0690; J1100; J1885; J2003; J2371; J2405; J2704; Q9967

== ENCOUNTER 2024-10-02 11:49 | Day surgery (SDC) | payer OTHER, SELFPAY ==
[2024-10-02] VITALS (30 sets, daily range): BP systolic 107–129; BP diastolic 56–74; PULSE 62–72; RESP 10–22; TEMP 36.3–36.6; O2SAT 89–100; BMI 23.5
--- NOTE | 2024-10-02 11:01 | ANES.PREOP_ITS ---
General Info Date of Service Date Performed: 10/02/24 Height: 5 ft 7 in Weight: 68.2 kg Body Mass Index (BMI): 23.5 Surgical Procedure: Operation Date: 10/02/24 13:10 Proposed Procedure Side Surgeon p Cystoscopy/Laser/Lithotripsy of Distal Ureteral Stone/Retrograde/Semirigid Ureteroscopy/Lithotripsy of Proximal Ureteral Stones/ Stent Removal Right Karl tSern MD Actual Procedure Side Surgeon p Cystoscopy/Laser/Lithotripsy of Distal Ureteral Stone/Retrograde/Semirigid Ureteroscopy/Lithotripsy of Proximal Ureteral Stones/ Stent Removal Right Karl Stern MD Meds Allergies and Home Medications Allergies Allergy/AdvReac Type Severity Reaction Status Date / Time codeine AdvReac Intermediate Hyper, Verified 10/02/24 12:04 kept awake all night hydrocodone bitartrate (From AdvReac Intermediate Hyper,antsy Verified 10/02/24 12:04 Vicodin) Home Medication ?Medication ?Instructions ?Recorded aspirin 81 mg tablet,delayed 81 mg PO DAILY 09/01/19 release multivitamin with minerals 2 cap PO DAILY 09/03/19 calcium 315 mg (as 2 tab PO BID 03/02/20 citrate)-vitamin D3 6.25 mcg (250 unit) tablet (Calcitrate) cyanocobalamin (vitamin B-12) 1,000 mcg PO Q OTHER DAY 03/02/20 1,000 mcg capsule zoledronic acid 5 mg/100 mL in See Rx Instructions IV ONCE #100 mL 06/05/22 mannitol 5 %-water intravenous piggybck (Reclast) bupropion HCl 300 mg 24 hr tablet, 300 mg PO QAM #90 t abs 10/24/23 extended release fluoxetine 20 mg capsule 20 mg PO DAILY #90 caps 06/21 06/17 tirzepatide (weight loss) 5 mg/0.5 5 mg subcut QWEEK 0 09/04/24 mL subcutaneous pen injector (Zepbound) Current Visit Medications: Current Medications Generic Name Dose Route Start Last Admin Trade Name Freq PRN Reason Stop Dose Admin Ringer's Solution 1,000 mls @ 80 mls/hr 10/02/24 06:00 IV 10/02/24 23:59 INFUSION CJ Cefazolin Sodium/Dextrose 2 gm in 50 mls @ 100 mls/hr 10/02/24 06:00 Ancef Duplex IVPB 10/02/24 23:59 PREOP CJ IV Miscellaneous Supplies 1 each 10/02/24 06:00 Iv Access IV 10/02/24 23:59 DIRECTED CJ Sodium Chloride 0 ml 10/02/24 06:00 Normal Saline Flush 10 Ml Syr IV 10/02/24 23:59 PRN PRN Sodium Chloride 0 ml 10/02/24 06:00 Normal Saline 10 Ml Vial IJ 10/02/24 23:59 DIRECTED PRN Sterile Water 0 ml 10/02/24 06:00 Water,Injection,Sterile 10 Ml Vial IJ 10/02/24 23:59 DIRECTED PRN PFSH Active Problems Active Problems: Problem Status Onset Code Bilateral nephrolithiasis Acute ~06/2024 N20.0 Gross hematuria Acute R31.0 Hyperinsulinemia Acute E16.1 IFG (impaired fasting glucose) Acute R73.01 Osteoporosis Chronic ~04/2021 M81.0 Obesity Chronic E66.9 Anxiety and depression Chronic F41.9, F32.9 Medical History Medical History Diverticulosis (~2020) on colonoscopy Lumbar strain Body mass index [BMI] 33.0-33.9, adult (~06/2021) 07/05/[place] [facility] [place] [facility] [place]. with 3m f/u in September 2021 Normal colonoscopy (~06/2020) Enchondroma of right humerus 06/23/2019 with repeat 6m--> both stable Primary osteoarthritis of both knees s/p b/l TKA 01/2018 Vitamin D deficiency (06/25/17) s/p bariatric surgery; resolved with supplementation Rosacea (09/21/11) Peripheral venous insufficiency (09/21/11) peripheral edema, prn hctz Nasal vestibulitis (08/26/15) Migraine (09/21/11) Intertrigo (09/24/17) Surgical History Surgical History History of Beatriz-en-Y gastric bypass (~11/2013) S/P panniculectomy (12/29/20) Status post total knee replacement, bilateral DOS: 01/29/18 Dr. Zafar H/O arthroscopy of knee Dreisbach, right knee arthroscopy, chondroplasty of both the patella and medial tibial plateau and femoral condyle with microfracture. July and juanitripp2011 both Phyllis. (Reviewed by Kevin BROOKS 01/29/18) S/P tubal ligation (~04/1991) S/P tonsillectomy and adenoidectomy H/O vein stripping (~08/21/00) Dr. Mayda HEAD H/O colonoscopy (10/02/07) Cholecystectomy (03/07/13) Tobacco Smoking/Tobacco Use Status: Never Passive smoking exposure: No Alcohol Alcohol Intake: former Substance Use Substance use: Never Substance use type: does not use Prental History History Para 1 Hx # Term Pregnancies Multiple births Hx # Pregnancies Ectopic pregnancies AB induced Hx Number of Living Children AB spontaneous Vital Signs and Lab Results Vital Signs Most Recent Vital Signs in EMR: Temp Pulse Resp BP Pulse Ox 36.6 C 71 18 124/74 97 10/02/24 12:12 10/02/24 12:12 10/02/24 12:12 10/02/24 12:12 10/02/24 12:12 Anesthesia Assessment and Plan Anesthesia History Personal History: No History of Anesthesia Complications Family History: No Family History of Anesthesia Complications Exercise Tolerance Exercise Tolerance: Metabolic Equivalents>4 Cardiac & Pulmonary Exam Cardiac Exam: Normal S1/S2 Heart Sounds Pulmonary Exam: Clear Bilateral Breath Sounds Implantable Cardiac Device Does patient have a Pacemaker or an ICD?: No Airway Exam Known Difficult Airway: No Mallampati Class: 1 Mouth Opening: Normal (> 3cm) Thyromental Distance: Greater than 3 cm Neck Range of Motion: Full ROM Neck Circumference: Normal Teeth Condition: Normal Dentition ASA Classification ASA Score: ASA 2 Emergency Case?: No NPO Status NPO Status: NPO Clears >2 hours, Solids >8 hours Anesthesia Plan Resuscitation Status: Full Code Anesthesia Technique: General Anesthesia Airway Planned: Endotracheal Tube Monitors Used: Standard Monitors Preoperative Comments:: 69 yo female for cysto, stent. Booked at >2 hr case. No health history changes since her last procedure. Sig PMHx: anxiety/depression (bupropion, fluoxetine), s/p beatriz-en-y, elevated BMI (tirzepatide), never smoker, former EtOH ECG: sinus. Previous Anes: - cysto, prop, natural airway - colo, prop, natural airway. - bTKA, LMA 4, attempt at spinal without success. Plan for GAETT due to length of case.
--- NOTE | 2024-10-02 12:05 | W.PM.HP.N ---
Date of service: 10/02/24 Time of Service: 12:05 Assessment and Plan Assessment and plan (1) Right kidney stone: Assessment and plan: We will plan to perform flexible ureteroscopy and holmium laser lithotripsy of as much of her right kidney stone as we can accomplish safely today. Given the large size of the stone, it will not surprise me if we need multiple attempts to clear her entire stone. History of Present Illness History of Present Illness Chief Complaint: Right kidney stone Narrative: This is a 69-year-old woman who initially presented with left-sided abdominal pain. She was evaluated with a CT scan. She had some small stones on the left kidney with slight dilation of the collecting system. On the right side, a large stone was identified, but there was no hydronephrosis. Her left-sided discomfort improved but she then began having right sided pain along with concerns for a urinary tract infection. An ultrasound confirmed some hydronephrosis on the right kidney. We brought her to the operating room for stent placement but did not plan on a stone manipulation given the likelihood of a urinary tract infection. Her urine culture ultimately showed no significant uropathogens. We had discussed treating her large right sided stone with percutaneous nephrolithotomy versus ureteroscopy. The patient expressed a preference for ureteroscopy even if it would take multiple procedures. She presents now for cystoscopy, stent removal, retrograde pyelogram, flexible ureteroscopy with holmium laser lithotripsy of her large sided right kidney stone.. Review of Systems Narrative: No fevers or chills No vision change or dysphasia No diabetes or thyroid dysfunction No shortness of breath, cough or hemoptysis No chest pain or palpitations No nausea, vomiting, hepatitis, ulcers, jaundice No seizures, strokes or peripheral neuropathy No bleeding disorders or anemia Osteoporosis. No gout PFSH All Active Problems Bilateral nephrolithiasis (Acute ~06/2024) Gross hematuria (Acute) Hyperinsulinemia (Acute) [facility] [place] [facility] 05/02/23 IFG (impaired fasting glucose) (Acute) [facility] [place] [facility] 05/02/23 Osteoporosis (Chronic ~04/2021) Hip/femoral neck T-score -2.7-->qualifies for bisphosphonate (see OV 07/25/21); osteopenia lumbar spine & left wrist; DEXA 04/2021 First Reclast 05/2022 Obesity (Chronic) s/p gastric surgery [facility] [place] [facility] [place] Nutrition Anxiety and depression (Chronic) Medical History Right kidney stone Diverticulosis (~2020) on colonoscopy Lumbar strain Body mass index [BMI] 33.0-33.9, adult (~06/2021) 07/05/21 [facility] [place] [facility] [place] visit. with 3m f/u in September 2021 Normal colonoscopy (~06/2020) Enchondroma of right humerus 06/23/2019 with repeat 6m--> both stable Primary osteoarthritis of both knees s/p b/l TKA 01/2018 Vitamin D deficiency (06/25/17) s/p bariatric surgery; resolved with supplementation Rosacea (09/21/11) Peripheral venous insufficiency (09/21/11) peripheral edema, prn hctz Nasal vestibulitis (08/26/15) Migraine (09/21/11) Intertrigo (09/24/17) Surgical History History of Beatriz-en-Y gastric bypass (~11/2013) S/P panniculectomy (12/29/20) Status post total knee replacement, bilateral DOS: 01/29/18 Dr. Zafar H/O arthroscopy of knee Dreisbach, right knee arthroscopy, chondroplasty of both the patella and medial tibial plateau and femoral condyle with microfracture. July and December 2011 both Dreisbach. (Reviewed by Kevin BROOKS 01/29/18) S/P tubal ligation (~04/1991) S/P tonsillectomy and adenoidectomy H/O vein stripping (~08/21/00) Dr. Mayda HEAD H/O colonoscopy (10/02/07) Cholecystectomy (03/07/13) Family History Mother , 05/06/16 age 83 multiple hosp for resp complication/pneumonia Diabetes Hypertension Hyperlipidemia Coronary heart disease CABG x4 in 60's Stroke at age 71 Breast cancer dx mid 70's Asthma Depression Father , age 80 COPD (chronic obstructive pulmonary disease) Bladder cancer Coronary heart disease stented Hypertension Hyperlipidemia Sister Obesity Brother Obesity Maternal Aunt Multiple sclerosis Mother Diabetes Depression Heart disease Breast cancer Stroke Asthma Father Heart disease Hyperlipidemia Cancer Social History Smoking/Tobacco Use Status: Never Smoking risk assessment performed?: Yes Alcohol Intake: former Drug use: Never Substance use type: does not use Adopted: No Caregiver/Support person: No Foster care: No Household members: spouse Housing: house Number of Children: 1 number of grandchildren: 1 Communication Needs: Corrective Lenses Education Level: other Details: associates degree Do you need help understanding health information?: Never 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 [employer] Pets and animals: No Sexually active: Yes Do you think of yourself as: straight/heterosexual Current gender identity: female What is your relationship status?: How often do you talk on the phone with friends or family?: three or more times per week How often do you get together with friends or relatives?: once per week How often do you attend cheondoism or faith services?: decline to answer Do you belong to any clubs or organized social groups?: no Panel score (0-1 are the most socially isolated patients): 2 NHANES result reviewed/action taken: No What type of physical activity do you participate in: walking Duration: 15-30 minutes/day Frequency: 1-2 times per week Karmen/Confucianist: Protestant Special karmen needs: No Seatbelt use: always Helmet use: Yes Helmet use: always Drive intox or ride w/intox crew truck driver: No Working smoke detector in home: Yes Fire extinguisher in home: Yes Carbon monox detector in home: Yes Firearms in home: Yes Firearms unloaded and locked: No Do you feel safe at home: Yes Do you feel safe in your relationship?: Yes History History Para 1 Hx # Term Pregnancies Multiple births Hx # Pregnancies Ectopic pregnancies AB induced Hx Number of Living Children AB spontaneous Meds Allergies and Home Medications Allergies Allergy/AdvReac Type Severity Reaction Status Date / Time codeine AdvReac Intermediate Hyper, Verified 10/02/24 12:04 kept awake all night hydrocodone bitartrate (From AdvReac Intermediate Hyper,antsy Verified 10/02/24 12:04 Vicodin) Home Medications ?Medication ?Instructions ?Recorded ?Confirmed ?Type aspirin 81 mg tablet,delayed 81 mg PO DAILY 09/01/19 09/30/24 History release multivitamin with minerals 2 cap PO DAILY 09/03/19 10/02/24 History calcium 315 mg (as 2 tab PO BID 03/02/20 10/02/24 History citrate)-vitamin D3 6.25 mcg (250 unit) tablet (Calcitrate) cyanocobalamin (vitamin B-12) 1,000 mcg PO Q OTHER DAY 03/02/20 10/02/24 History 1,000 mcg capsule zoledronic acid 5 mg/100 mL in See Rx Instructions IV ONCE #100 mL 06/05/22 10/02/24 Rx mannitol 5 %-water intravenous piggybck (Reclast) bupropion HCl 300 mg 24 hr tablet, 300 mg PO QAM #90 tabs 10/24/23 10/02/24 Rx extended release fluoxetine 20 mg capsule 20 mg PO DAILY #90 caps 07/02/24 10/02/24 Rx tirzepatide (weight loss) 5 mg/0.5 5 mg subcut QWEEK 09/04/24 09/30/24 History mL subcutaneous pen injector (Zepbound) Exam Narrative Exam Narrative: She is a pleasant woman in no obvious distress Her vital signs are documented elsewhere in the chart Her chest wall motion is normal. She is not short of breath at rest. Her respirations are clear bilaterally Cardiac exam shows a regular rate and rhythm Her abdomen is soft with no mass She is awake and alert Time Spent Time spent with Patient: <40 minutes Time was spent: other
[2024-10-02] MEDS: Lactated Ringers 1,000 ML 80 ML IV (12:28)
[2024-10-02] MEDS: ceFAZolin 2 GM/50 ML BAG IVPB (13:01)
[2024-10-02] MEDS: Lidocaine 2% Jelly 6 ML SYR (13:20)
[2024-10-02] MEDS: Omnipaque 300 MG/ML 50 ML BTL (14:43)
--- NOTE | 2024-10-02 15:04 | PDOC.DSDIS_ITS ---
Date of service: 10/02/24 Discharge Plan Disposition Patient Disposition: Home Discharge Details Reason For Visit: ureteroscopy Attending Provider: Karl Stern Primary Care Provider: Gladis Patricio Home Meds and New Rx's Prescriptions: No Action multivitamin with minerals Capsule 2 cap PO DAILY Patient Comments: [facility] [place] fluoxetine 20 mg capsule 20 mg PO DAILY Qty: 90 0RF Rx Instructions: Start 20mg daily for 1 month and then may increase to 40mg daily. aspirin 81 mg tablet,delayed release (DR/EC) 81 mg PO DAILY cyanocobalamin (vitamin B-12) 1,000 mcg capsule 1,000 mcg PO Q OTHER DAY calcium citrate-vitamin D3 [Calcitrate-Vitamin D] 315 mg-6.25 mcg (250 unit) tablet 2 tab PO BID Rx Instructions: [facility] [place] zoledronic [id number] [Reclast] 5 mg/100 mL piggyback See Rx Instructions IV ONCE Qty: 100 2RF Rx Instructions: 100mL; intravenously once; administer over at least 15 mins bupropion HCl 300 mg tablet extended release 24 hr 300 mg PO QAM Qty: 90 3RF Zepbound 5 mg/0.5 mL pen injector 5 mg SUBCUT QWEEK Patient Comments: inject 5mg SUBCUTANEOUSLY ONCE WEEKLY Discharge Instructions Additional Instructions: There is no need to strain your urine - we sent some stone pieces to the lab to be analyzed My office will contact you to arrange a repeat ureteroscopy in about 2 weeks - I do not expect that we will need to laser any remaining stone, but I would like to make sure all of your stone fragments have been removed. Activity:: Activity as Tolerated Shower/Bathe:: 24 hours Diet:: As Tolerated Discharge Orders Discharge Orders: Discharge Order (Routine); Ordered 10/02/24 Ordered By: Karl Stern DS: Diagnosis Discharge Diagnosis (1) Right kidney stone:
--- NOTE | 2024-10-02 15:06 | DI.RAD_ITS ---
Exam(s) XR RETROGRADE IN OR EXAM: XR RETROGRADE IN OR CLINICAL HISTORY: C-Arm OR 2 TECHNIQUE: 2D and realtime digital imaging was performed. CONTRAST MATERIAL: Refer to procedure report. COMPARISON: CT CT ABDOMEN PELVIS W from 07/03/2024 XA XR RETROGRADE IN OR from 09/05/2024 FINDINGS: Fluoroscopy was provided for Dr. Stern during the performance of a retrograde evaluation of the renal collecting system. Please refer to the procedure report for complete details. Ka,r=8.0 mGy IMPRESSION: RADIATION DOSE DELIVERED: 0.0 0.0 0
--- NOTE | 2024-10-02 15:08 | ROE_ITS ---
Operative Note Operative Note PRE-OP DIAGNOSIS: Right kidney stone POST-OP DIAGNOSIS: same PROCEDURE: cystoscopy, right ureteroscopy with stent removal, right retrograde pyelogram, right flexible ureteroscopy with holmium laser lithotripst, basket extraction of multiple stone fragments, insert right ureteral stent SURGEON: Karl Stern ANESTHESIA TYPE: Local By Surgeon and General LMA/ETT Refer to Anesthesia Record ESTIMATED BLOOD LOSS: 5 PATHOLOGY: other (stone particles for chemical analysis) Implants: 4.8 Amharic by 22 to 30 cm right ureteral stent Indications: This is a 69-year-old woman who initially presented with left lower quadrant pain. Clinically, there was concern for diverticulitis. She was evaluated with a CT with contrast. No diverticulitis was identified, but she was found to have bilateral kidney stones. There were small stones on the left and there was mild dilatation of the left collecting system making us wonder if she had recently passed a left ureteral stone. On the right side, she had a very large stone in the renal pelvis. She had no symptoms on the right initially. She then developed some right flank pain along with symptoms concerning for infection. An ultrasound showed upper pole dilatation. We placed a right ureteral stent urgently and started her on antibiotics. Her urine culture ultimately showed no significant uropathogens. We had discussed possible referral for percutaneous nephrolithotomy versus ureteroscopy for her large stone. Given the size of the stone, if approached ureteroscopically, we would expect a staged procedure. She is more interested in the ureteroscopic options so she presents now for ureteroscopy and holmium laser lithotripsy. Findings: large right renal pelvis stone Procedure Description: The patient was given IV antibiotics and brought to the operating room on 10/02/2024. After successful induction of general anesthesia, she was placed in the dorsal lithotomy position. Her genitalia was prepped with Betadine. 2% Xylocaine jelly was instilled into the urethra to act as a local anesthetic. A 22 Amharic rigid cystoscope was passed through the urethra into the bladder. The urethra and bladder were inspected with the 30 degree lens. The left ureteral orifice appeared normal. The right orifice showed no visible stent extruding into the bladder, but the imprint of the stent could be seen in the submucosal tunnel. I then cannulated the right ureteral stent with a 5 Amharic access catheter and passed a guidewire through the lumen of the catheter up the right ureteral stent. The ureteral access catheter and cystoscope were withdrawn. A semirigid ureteroscope was then passed through the urethra into the bladder. The scope was maneuvered into the right distal ureter. This stent was visualized and was grasped and a Lydia stone basket. The stent was then removed in its entirety. I passed a dual-lumen catheter over the indwelling wire. I then injected Omnipaque through the second port of the dual-lumen catheter to obtain a retrograde pyelogram. The retrograde pyelogram allowed us to outline the large kidney stone in the renal pelvis and the remainder of the renal anatomy. I passed a second wire through the dual-lumen catheter and removed the catheter leaving the wires in place. We chose one of the wires as a working wire and the other is a safety wire. We passed a ureteral access sheath over the working wire and advanced the sheath until the tip of it was seen in the proximal ureter. The disposable flexible ureteroscope was then passed through the ureteral access sheath and maneuvered into the kidney. The stone was visualized in the renal pelvis. We treated the stone with a 272 ?m holmium laser fiber. We used a c ombination of dusting settings and fragmentation settings. The stone will fragmented quite easily with both of these techniques. Multiple stone pieces were grasped in a ZeroTip stone basket and extracted. Multiple small stone fragments remained in the renal pelvis, but I did not identify additional large fragments that might need additional laser treatments. We elected to place a ureteral stent and allow the edema in the kidney to improve. We utilized a 4.8 Amharic variable length stent and advanced it over the safety wire. We position the stent with the proximal end curled in the renal pelvis and the distal end curled within the bladder. The positioning of the stent was confirmed both fluoroscopically and cystoscopically. The expectation is that some of these small stone fragments may be able to pass on their own. We will make arrangements to perform repeat ureteroscopy in 2 to 4 weeks. We will plan to extract any remaining stone fragments at that time. The patient tolerated this procedure well with no complications. She was taken to the recovery room in stable condition. Date of Procedure: 10/02/24
--- NOTE | 2024-10-02 15:17 | W.ANESPOSTOP ---
Postoperative Evaluation Date, Time and Location Date Performed: 10/02/24 Time Performed: 15:17 Patient Location: PACU Vital Signs Most Recent Imported Vital Signs: Most Recent Vital Signs Temp Pulse Resp BP Pulse Ox 36.6 C 71 18 124/74 97 10/02/24 12:12 10/02/24 12:12 10/02/24 12:12 10/02/24 12:12 10/02/24 12:12 Pain Score Most Recent Pain Score: Most Recent Pain Score Pain Level 0 10/02/24 12:12 Assessment Mental Status: Arousable with meaningful communication Airway and Respiratory Function: Patent airway with normal (patient baseline) respiratory exam Cardiovascular Function: Hemodynamically Stable (VS reviewed in PACU, not currently populated. ) Hydration Status: Adequately Hydrated Nausea & Vomiting: No Nausea or Vomiting Pain: Pain is tolerable per patient Peripheral Nerve Block: Patient did not receive a nerve block
[2024-10-02] MEDS: fentaNYL 100 MCG/2 ML VIAL IVP (15:47)
[2024-10-02] MEDS: Phenazopyridine 200 MG TAB PO (16:21)
[2024-10-02] MEDS: traMADol 50 MG TAB PO (16:48)
[2024-10-14 14:35] LABS: Source: Right Kidney
== END 2024-10-02 17:50 | disposition home or self-care (01) ==
PROVIDERS: PCP Nurse Practitioner Adult Health; Visit Provider Urology
PROC: (CPT 52356; principal; 2024-10-02 13:00)
DX: N20.0 Calculus of kidney (principal)
CPT/HCPCS: 52356; 74420; 82365; J0131; J0690; J1100; J1885; J2405; J2704; J3010; Q9967

== ENCOUNTER 2024-10-27 06:11 | Day surgery (SDC) | payer OTHER, SELFPAY ==
[2024-10-27] VITALS (21 sets, daily range): BP systolic 115–149; BP diastolic 64–85; PULSE 62–74; RESP 9–21; TEMP 36–36.6; O2SAT 0–99; BMI 23.5
[2024-10-27] MEDS: Lactated Ringers 1,000 ML 80 ML IV (06:46)
--- NOTE | 2024-10-27 06:52 | HPE_ITS ---
Date of service: 10/27/24 Time of Service: 06:52 Assessment and Plan Assessment and plan (1) Right kidney stone: Assessment and plan: We will remove her right ureteral stent and perform flexible ureteroscopy to address any residual stone fragments. History of Present Illness History of Present Illness Chief Complaint: Right kidney stone Narrative: This is a 69-year-old woman who initially presented with left-sided abdominal pain. She was evaluated with a CT scan. She had some small stones on the left kidney with slight dilation of the collecting system. On the right side, a large stone was identified, but there was no hydronephrosis. Her left-sided discomfort improved but she then began having right sided pain along with concerns for a urinary tract infection. An ultrasound confirmed some hydronephrosis on the right kidney. We brought her to the operating room for stent placement but did not plan on a stone manipulation given the likelihood of a urinary tract infection. Her urine culture ultimately showed no significant uropathogens. We then performed flexible ureteroscopy and holmium laser lithotripsy. The stone fragmented quite well and we were able to extract multiple stone fragments. Her chemical analysis showed the stone was composed of calcium oxalate dihydrate, calcium phosphate and calcium oxalate monohydrate. The stone analysis is listed in the results section of this document. She has had occasional right sided discomfort but no gross hematuria or stone passage. She presents now to have her stent removed. We will plan to repeat her flexible ureteroscopy to make sure all significant stone fragments have been addressed. Review of Systems Narrative: No fevers or chills No vision change or dysphasia No diabetes or thyroid dysfunction No shortness of breath, cough or hemoptysis No chest pain or palpitations No nausea, vomiting, hepatitis, ulcers, jaundice, diarrhea or constipation No seizures, strokes or peripheral neuropathy No bleeding disorders or anemia Osteoporosis. No gout PFSH All Active Problems Bilateral nephrolithiasis (Acute ~06/2024) Hyperinsulinemia (Acute) [facility] and Wellness 05/02/23 IFG (impaired fasting glucose) (Acute) [facility] Well[facility] 05/02/23 Osteoporosis (Chronic ~04/2021) Hip/femoral neck T-score -2.7-->qualifies for bisphosphonate (see OV 07/25/21); osteopenia lumbar spine & left wrist; DEXA 04/2021 First Reclast 05/2022 Obesity (Chronic) s/p gastric surgery [facility] 2013 [facility] Nutrition Anxiety and depression (Chronic) Medical History Right kidney stone Diverticulosis (~2020) on colonoscopy Lumbar strain Body mass index [BMI] 33.0-33.9, adult (~06/2021) 07/05/21 [facility] Weight Wellness TH visit. with 3m f/u in September 2021 Normal colonoscopy (~06/2020) Enchondroma of right humerus 06/23/2019 with repeat 6m--> both stable Primary osteoarthritis of both knees s/p b/l TKA 01/2018 Vitamin D deficiency (06/25/17) s/p bariatric surgery; resolved with supplementation Rosacea (09/21/11) Peripheral venous insufficiency (09/21/11) peripheral edema, prn hctz Nasal vestibulitis (08/26/15) Migraine (09/21/11) Intertrigo (09/24/17) Surgical History History of Beatriz-en-Y gastric bypass (~11/2013) S/P panniculectomy (12/29/20) Status post total knee replacement, bilateral DOS: 01/29/18 Dr. Zafar H/O arthroscopy of knee Dreisbach, right knee arthroscopy, chondroplasty of both the patella and medial tibial plateau and femoral condyle with microfracture. July and December 2011 both Dreisbach. (Reviewed by Kevin BROOKS 01/29/18) S/P tubal ligation (~04/1991) S/P tonsillectomy and adenoidectomy H/O vein stripping (~08/21/00) Dr. Mayda HEAD H/O colonoscopy (10/02/07) Cholecystectomy (03/07/13) Family History Mother , 05/06/16 age 83 multiple hosp for resp complication/pneumonia Diabetes Hypertension Hyperlipidemia Coronary heart disease CABG x4 in 60's Stroke at age 71 Breast cancer dx mid 70's Asthma Depression Father , age 80 COPD (chronic obstructive pulmonary disease) Bladder cancer Coronary heart disease stented Hypertension Hyperlipidemia Sister Obesity Brother Obesity Maternal Aunt Multiple sclerosis Mother Diabetes Depression Heart disease Breast cancer Stroke Asthma Father Heart disease Hyperlipidemia Cancer Social History Smoking/Tobacco Use Status: Never Smoking risk assessment performed?: Yes Alcohol Intake: former Drug use: Never Substance use type: does not use Adopted: No Caregiver/Support person: No Foster care: No Household members: spouse Housing: house Number of Children: 1 number of grandchildren: 1 Communication Needs: Corrective Lenses Education Level: other Details: associates degree Do you need help understanding health information?: Never 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 [employer] Pets and animals: No Sexually active: Yes Do you think of yourself as: straight/heterosexual Current gender identity: female What is your relationship status?: How often do you talk on the phone with friends or family?: three or more times per week How often do you get together with friends or relatives?: once per week How often do you attend zoroastrianism or alevism services?: decline to answer Do you belong to any clubs or organized social groups?: no Panel score (0-1 are the most socially isolated patients): 2 NHANES result reviewed/action taken: No What type of physical activity do you participate in: walking Duration: 15-30 minutes/day Frequency: 1-2 times per week Karmen/Protestant: Sabianism Special karmen needs: No Seatbelt use: always Helmet use: Yes Helmet use: always Drive intox or ride w/intox cpr ambulance driver: No Working smoke detector in home: Yes Fire extinguisher in home: Yes Carbon monox detector in home: Yes Firearms in home: Yes Firearms unloaded and locked: No Do you feel safe at home: Yes Do you feel safe in your relationship?: Yes History History Para 1 Hx # Term Pregnancies Multiple births Hx # Pregnancies Ectopic pregnancies AB induced Hx Number of Living Children AB spontaneous Meds Allergies and Home Medications Allergies Allergy/AdvReac Type Severity Reaction Status Date / Time codeine AdvReac Intermediate Hyper, Verified 10/27/24 06:25 kept awake all night hydrocodone bitartrate (From AdvReac Intermediate Hyper,antsy Verified 10/27/24 06:25 Vicodin) Home Medications ?Medication ?Instructions ?Recorded ?Confirmed ?Type aspirin 81 mg tablet,delayed 81 mg PO DAILY 09/01/19 0 10/27/24 History release multivitamin with minerals 2 cap PO DAILY 09/03/1911/14 History calcium 315 mg (as 2 tab PO BID 03/02/20 History citrate)-vitamin D3 6.25 mcg (250 unit) tablet (Calcitrate) cyanocobalamin (vitamin B-12) 1,000 mcg PO Q OTHER DAY 03/02/20 10/27/24 History 1,000 mcg capsule zoledronic acid 5 mg/100 mL in See Rx Instructions IV ONCE #100 mL 06/05/22 10/27/24 Rx mannitol 5 %-water intravenous piggybck (Reclast) Held on 10/20/24. Instructions: s/p 3 infusions bupropion HCl 300 mg 24 hr tablet, 300 mg PO QAM #90 t abs 10/24/23 10/27/24 Rx extended release tirzepatide (weight loss) 5 mg/0.5 5 mg subcut QWEEK 0 09/04/24 10/22/24 History mL subcutaneous pen injector (Zepbound) fluoxetine 20 mg capsule 20 mg PO DAILY #90 caps 09/2110/27/24 Rx Exam Const General: cooperative and no acute distress Neck Neck: supple Resp Effort & Inspection: normal respiratory effort Auscultation: clear to auscultation bilaterally Cardio Rate: regular rate Rhythm: regular rhythm GI Palpation: soft and no masses Neuro General: patient alert, patient awake and patient oriented x3 Results Labs Labs: RUN DATE: 10/27/24 [facility] PAGE 1 RUN TIME: [id number] RUN USER: [place] [address] Ann Brown MD PATIENT REPORT PATIENT: Charli Anderson LOC: [facility] U #: [id number] /SX: [id number] F ROOM: RE10/02/[address]: JOHN DELEON MD STATUS: DEP [facility] BED: DIS: SPEC #: [id number] NICOLAS: 10/02/24-1420 STATUS: COMP REQ #: [id number] RECD: 10/02/24-[address]: JOHN DELEON MD ENTERED: 10/02/[address]: DAHIANA CLOTH DESIZING RANGE TENDER, HOLA FAX #: ORDERED: Stone Anaylsis QUERIES: Source: Right Kidney Test Result Flag Reference Verified Kidney Stone Analysis Source: Right Kidney 10/14/24 Interpretation See Comment 10/14/24 40% Calcium oxalate dihydrate. 40% Calcium phosphate (apatite). 20% Calcium oxalate monohydrate. Result Comment See Comment 10/14/24 For stones containing calcium oxalate, calcium phosphate, and/or uric acid, a 24 hr urinary supersaturation test may help detect underlying risk factors for this type of stone formation and provide guidance for a stone prevention strategy. ADDITIONAL INFORMATION This test was developed and its performance characteristics determined by [facility] in a manner consistent with CLIA requirements. This test has not been cleared or approved by the U.S. Food and Drug Administration. Test Performed by: [facility] [address] [place] [address] Benzene Worker: Shyam Dumont Ph.D.; CLIA# [id number] Patient: Charli Anderson LABORATORY Acct#[id number] Unit#[id number] Last Vital Signs Temp 36.4 C L 10/27/24 06:26 Pulse 74 10/27/24 06:26 Resp 20 10/27/24 06:26 BP 115/69 10/27/24 06:26 Pulse Ox 0 L 10/27/24 06:26 Time Spent Time spent with Patient: <40 minutes Time was spent: other
--- NOTE | 2024-10-27 07:20 | W.ANESPRE ---
General Info Date of Service Date Performed: 10/27/24 Height: 5 ft 7 in Weight: 68.2 kg Body Mass Index (BMI): 23.5 Surgical Procedure: Operation Date: 10/27/24 07:40 Proposed Procedure Side Surgeon p Cystoscopy/Retrograde/Ureteroscopy/Stent Placement/Extraction of Remaining Stone Fragments Right Karl Stern MD Actual Procedure Side Surgeon p Cystoscopy/Retrograde/Ureteroscopy/Stent Placement/Extraction of Remaining Stone Fragments Right Karl Stern MD Pre-Op Diagnosis Post-Op Diagnosis Right kidney stone Meds Allergies and Home Medications Allergies Allergy/AdvReac Type Severity Reaction Status Date / Time codeine AdvReac Intermediate Hyper, Verified 10/27/24 06:25 kept awake all night hydrocodone bitartrate (From AdvReac Intermediate Hyper,antsy Verified 10/27/24 06:25 Vicodin) Home Medication ?Medication ?Instructions ?Recorded aspirin 81 mg tablet,delayed 81 mg PO DAILY 09/01/19 release multivitamin with minerals 2 cap PO DAILY 09/03/19 calcium 315 mg (as 2 tab PO BID 03/02/20 citrate)-vitamin D3 6.25 mcg (250 unit) tablet (Calcitrate) cyanocobalamin (vitamin B-12) 1,000 mcg PO Q OTHER DAY 03/02/20 1,000 mcg capsule zoledronic acid 5 mg/100 mL in See Rx Instructions IV ONCE #100 mL 06/05/22 mannitol 5 %-water intravenous piggybck (Reclast) Held on 10/20/24. Instructions: s/p 3 infusions bupropion HCl 300 mg 24 hr tablet, 300 mg PO QAM #90 tabs 10/24/23 extended release tirzepatide (weight loss) 5 mg/0.5 5 mg subcut QWEEK 09/04/24 mL subcutaneous pen injector (Zepbound) fluoxetine 20 mg capsule 20 mg PO DAILY #90 caps 10/08/24 Current Visit Medications: Current Medications Generic Name Dose Route Start Last Admin Trade Name Freq PRN Reason Stop Dose Admin Ringer's Solution 1,000 mls @ 80 mls/hr 10/27/24 06:00 10/27/24 06:46 IV 10/27/24 23:59 80 mls/hr INFUSION CJ Administration Cefazolin Sodium/Dextrose 2 gm in 50 mls @ 100 mls/hr 10/27/24 06:00 Ancef Duplex IVPB 10/27/24 23:59 PREOP CJ IV Miscellaneous Supplies 1 each 10/27/24 06:00 Iv Access IV 10/27/24 23:59 DIRECTED CJ Sodium Chloride 0 ml 10/27/24 06:00 Normal Saline Flush 10 Ml Syr IV 10/27/24 23:59 PRN PRN Sodium Chloride 0 ml 10/27/24 06:00 Normal Saline 10 Ml Vial IJ 10/27/24 23:59 DIRECTED PRN Sterile Water 0 ml 10/27/24 06:00 Water,Injection,Sterile 10 Ml Vial IJ 10/27/24 23:59 DIRECTED PRN PFSH Active Problems Active Problems: Problem Status Onset Code Bilateral nephrolithiasis Acute ~06/2024 N20.0 Hyperinsulinemia Acute E16.1 IFG (impaired fasting glucose) Acute R73.01 Osteoporosis Chronic ~04/2021 M81.0 Obesity Chronic E66.9 Anxiety and depression Chronic F41.9, F32.9 Medical History Medical History Right kidney stone Diverticulosis (~2020) on colonoscopy Lumbar strain Body mass index [BMI] 33.0-33.9, adult (~06/2021) 07/05/21 [facility] [place] visit. with 3m f/u in September 2021 Normal colonoscopy (~06/2020) Enchondroma of right humerus 06/23/2019 with repeat 6m--> both stable Primary osteoarthritis of both knees s/p b/l TKA 01/2018 Vitamin D deficiency (06/25/17) s/p bariatric surgery; resolved with supplementation Rosacea (09/21/11) Peripheral venous insufficiency (09/21/11) peripheral edema, prn hctz Nasal vestibulitis (08/26/15) Migraine (09/21/11) Intertrigo (09/24/17) Surgical History Surgical History History of Beatriz-en-Y gastric bypass (~11/2013) S/P panniculectomy (12/29/20) Status post total knee replacement, bilateral DOS: 01/29/18 Dr. Zafar H/O arthroscopy of knee Dreisbach, right knee arthroscopy, chondroplasty of both the patella and medial tibial plateau and femoral condyle with microfracture. July and December 2011 both Phyllis. (Reviewed by Kevin BROOKS 01/29/18) S/P tubal ligation (~04/1991) S/P tonsillectomy and adenoidectomy H/O vein stripping (~08/21/00) Dr. Mayda HEAD H/O colonoscopy (10/02/07) Cholecystectomy (03/07/13) Tobacco Smoking/Tobacco Use Status: Never Passive smoking exposure: No Alcohol Alcohol Intake: former Substance Use Substance use: Never Substance use type: does not use Prental History History Para 1 Hx # Term Pregnancies Multiple births Hx # Pregnancies Ectopic pregnancies AB induced Hx Number of Living Children AB spontaneous Vital Signs and Lab Results Vital Signs Most Recent Vital Signs in EMR: Most Recent Vital Signs Temp Pulse Resp BP Pulse Ox 36.4 C L 74 20 115/69 0 L 10/27/24 06:26 10/27/24 06:26 10/27/24 06:26 10/27/24 06:26 10/27/24 06:26 Anesthesia Assessment and Plan Anesthesia History Personal History: No History of Anesthesia Complications Family History: No Family History of Anesthesia Complications Exercise Tolerance Exercise Tolerance: Metabolic Equivalents>4 Pertinent Negatives Pertinent Negatives: No Symptoms of GERD Cardiac & Pulmonary Exam Cardiac Exam: Normal S1/S2 Heart Sounds Pulmonary Exam: Clear Bilateral Breath Sounds Implantable Cardiac Device Does patient have a Pacemaker or an ICD?: No Airway Exam Known Difficult Airway: No Mallampati Class: 1 Mouth Opening: Normal (> 3cm) Thyromental Distance: Greater than 3 cm Neck Range of Motion: Full ROM Neck Circumference: Normal Teeth Condition: Normal Dentition ASA Classification ASA Score: ASA 2 Emergency Case?: No NPO Status NPO Status: NPO Clears >2 hours, Solids >8 hours Anesthesia Plan Resuscitation Status: Full Code Anesthesia Technique: General Anesthesia Airway Planned: Natural Airway Monitors Used: Standard Monitors
[2024-10-27] MEDS: ceFAZolin 2 GM/50 ML BAG IVPB (07:28)
[2024-10-27] MEDS: Lidocaine 2% Jelly 6 ML SYR (07:51)
[2024-10-27] MEDS: Omnipaque 300 MG/ML 50 ML BTL (08:00)
--- NOTE | 2024-10-27 08:15 | DI.RAD_ITS ---
Exam(s) XR RETROGRADE IN OR EXAM: XR RETROGRADE IN OR CLINICAL HISTORY: Right kidney stone. TECHNIQUE: 2D digital imaging was performed. COMPARISON: No exams were available for comparison FINDINGS: Fluoroscopy provided during urologic procedure. Radiologist was not present. See procedure report for details IMPRESSION: Radiation exposure index/cumulative dose:gilda Rodriguez= 3.7261mGy DATA REPOSITORY: RADIATION DOSE DELIVERED:
--- NOTE | 2024-10-27 08:20 | PDOC.DSDIS_ITS ---
Date of service: 10/27/24 Discharge Plan Disposition Patient Disposition: Home Condition: Stable Discharge Details Reason For Visit: ureteroscopy Attending Provider: Karl Stern Primary Care Provider: Gladis Patricio Recommendations for Follow Up Recommended tests to be ordered by follow up provider: renal US 6 to 8 weeks Home Meds and New Rx's Prescriptions: New ketorolac 10 mg tablet 10 mg PO Q6H PRN (Reason: pain) Qty: 15 0RF Rx Instructions: maximum total duration of 5 days from all oral, intranasal, or parenteral formulations No Action multivitamin with minerals Capsule 2 cap PO DAILY Patient Comments: [facility] aspirin 81 mg tablet,delayed release (DR/EC) 81 mg PO DAILY cyanocobalamin (vitamin B-12) 1,000 mcg capsule 1,000 mcg PO Q OTHER DAY calcium citrate-vitamin D3 [Calcitrate-Vitamin D] 315 mg-6.25 mcg (250 unit) tablet 2 tab PO BID Rx Instructions: [facility] zoledronic [id number] [Reclast] 5 mg/100 mL piggyback See Rx Instructions IV ONCE Qty: 100 2RF Rx Instructions: 100mL; intravenously once; administer over at least 15 mins bupropion HCl 300 mg tablet extended release 24 hr 300 mg PO QAM Qty: 90 3RF fluoxetine 20 mg capsule 20 mg PO DAILY Qty: 90 3RF Zepbound 5 mg/0.5 mL pen injector 5 mg SUBCUT QWEEK Patient Comments: inject 5mg SUBCUTANEOUSLY ONCE WEEKLY Discharge Instructions Additional Instructions: There is no need to strain your urine Follow-up with me in 6 to 8 weeks after completing a renal ultrasound. Activity:: Activity as Tolerated Shower/Bathe:: 24 hours Diet:: As Tolerated Discharge Orders Discharge Orders: Discharge Order (Routine); Ordered 10/27/24 Ordered By: Karl Stern Other Ambulatory Orders: US renal (Routine) Timeframe: 6 Weeks Facility: [facility] - Location: DIAGNOSTIC IMAGING Ordered By: Karl Stern DS: Diagnosis Discharge Diagnosis (1) Right kidney stone:
--- NOTE | 2024-10-27 08:28 | W.PM.OP ---
Operative Note Operative Note PRE-OP DIAGNOSIS: Right kidney stone POST-OP DIAGNOSIS: same PROCEDURE: cystoscopy, remove right ureteral stent, right retrograde pyelogram, right flexible ureteroscopy with extraction of stone fragments SURGEON: Karl Stern ANESTHESIA TYPE: Local By Surgeon and General:No Airway Refer to Anesthesia Record ESTIMATED BLOOD LOSS: 5 PATHOLOGY: none sent COMPLICATIONS: None Patient was transported to: PACU Patient's condition: stable Implants: none Indications: This is a 69-year-old woman who has a history of bilateral kidney stones. She had a large stone in the right renal pelvis that was treated with ureteroscopy and holmium laser lithotripsy. I extracted multiple stone fragments and believed that I had fragmented the stone completely. We left a ureteral stent and made plans to remove the stent and repeat her ureteroscopy to extract any residual stone fragments Findings: multiple small stone fragments in renal pelvis and lower pole calyx Procedure Description: The patient was given IV antibiotics and brought to the operating room on 10/27/2024. After successful induction of general anesthesia, she was placed in the dorsal lithotomy position. Her genitalia was prepped and draped sterilely. 2% Xylocaine jelly was instilled into the urethra to act as a local anesthetic. A 22 Chinese rigid cystoscope was passed through the urethra into the bladder. The bladder was inspected with a 30 degree lens. A stent could be seen protruding from the right ureteral orifice. The stent was grasped and alligator forceps and brought to the level of the urethral meatus. A guidewire was advanced through the lumen of the stent and the stent was removed. The dual-lumen catheter was advanced over the wire. A retrograde pyelogram was obtained by injecting Omnipaque through the second port of the dual-lumen catheter. The retrograde pyelogram allowed us to outline each of the calyces fluoroscopically. I then passed the second wire through the dual-lumen catheter and removed the catheter. We chose one of the wires as a working wire and the other as a safety wire. We passed a ureteral access sheath over the working wire leaving the safety wire in place. I then passed a flexible ureteroscope through the lumen of the access sheath and inspected the calyces and renal pelvis. Multiple small stones were identified within the renal pelvis and one of the lower pole calyces. No stones were seen in the upper or middle pole calyx. The larger stone fragments were grasped in a ZeroTip stone basket and removed. Smaller stones were felt to be too small for basketing and were left alone. Once all significant stone fragments had been removed, the ureteroscope and ureteral access sheath were removed. We found no evidence of ureteral injury. We elected not to place a ureteral stent. The patient tolerated the procedure well with no complications. She was taken to the recovery room in stable condition. Date of Procedure: 10/27/24
[2024-10-27] MEDS: fentaNYL 100 MCG/2 ML VIAL IVP ×2 (08:37→08:54)
[2024-10-27] MEDS: Phenazopyridine 200 MG TAB PO (08:45)
[2024-10-27] MEDS: traMADol 50 MG TAB PO (10:14)
--- NOTE | 2024-10-27 11:09 | W.ANESPOSTOP ---
Postoperative Evaluation Date, Time and Location Date Performed: 10/27/24 Time Performed: 10:25 Patient Location: Day Surgery Unit Vital Signs Most Recent Imported Vital Signs: Most Recent Vital Signs Temp Pulse Resp BP Pulse Ox 36.0 C L 69 19 132/75 99 10/27/24 09:48 10/27/24 09:48 10/27/24 09:48 10/27/24 09:48 10/27/24 09:48 Pain Score Most Recent Pain Score: Most Recent Pain Score Pain Level 5 10/27/24 10:25 Assessment Mental Status: Awake (Alert & Oriented to Patient Baseline) Airway and Respiratory Function: Patent airway with normal (patient baseline) respiratory exam Cardiovascular Function: Hemodynamically Stable Hydration Status: Adequately Hydrated Nausea & Vomiting: No Nausea or Vomiting Pain: Pain is Moderate or Severe Postoperative Pain Management: Other (Pt. is sitting calmly in bed, carrying conversation. States pain is slightly more than tolerable but she would like to hold on additional pain medicine for now. She will request if needed. ) Peripheral Nerve Block: Patient did not receive a nerve block
== END 2024-10-27 10:55 | disposition home or self-care (01) ==
PROVIDERS: PCP Nurse Practitioner Adult Health; Visit Provider Urology
PROC: (CPT 52352; principal; 2024-10-27 07:30)
DX: N20.0 Calculus of kidney (principal)
CPT/HCPCS: 52352; 74420; J0131; J0690; J1100; J1885; J2003; J2405; J2704; J3010; Q9967

== ENCOUNTER 2025-01-06 09:12 | Outpatient (CLI) | payer OTHER, SELFPAY ==
[2025-01-06 08:33] LABS: HCT 40.9 % (36.0-46.0); HGB 13.4 g/dL (11.2-15.7); MCH 29.3 pg (27.0-33.0); MCHC 32.8 % (32.0-36.0); MCV 89 fL (80-95); MPV 9.0 fL (8.0-11.0); Platelet Count 157 10^3/uL (130-400); RBC 4.58 10^6/uL (3.93-5.22); RDW 12.2 % (11.7-14.6); RDW-SD 39.7 fL; WBC 8.71 10^3/uL (4.4-10.8)
[2025-01-06 09:24] LABS: Iron 126 ug/dL (50-170); Total Iron Binding Capacity 298 ug/dL (250-450); Transferrin Sat 42 % (15-50)
[2025-01-06 09:36] LABS: ALT 26 U/L (14-59); AST 21 U/L (15-37); Albumin 3.4 g/dL (3.4-5.0); Alkaline Phosphatase 78 U/L (46-116); Anion Gap 6.8 mmol/L (3-11); BUN 19 mg/dL (7-18); Bilirubin, Total 0.6 mg/dL (0.2-1.0); CO2 33.2 mmol/L (21.0-32.0); Calcium 9.4 mg/dL (8.5-10.1); Chloride 113 mmol/L (98-107); Estimated GFR 97.10 (mL/min/1.73m2); Ferritin 32 ng/mL (8-252); Glucose 80 mg/dL (74-106); Potassium 4.2 mmol/L (3.5-5.1); Sodium 153 mmol/L (136-145); Total Protein 6.9 g/dL (6.4-8.2); Vitamin B12 878 pg/mL (193-986)
[2025-01-06 09:38] LABS: Folate > 20.0 ng/mL (8.6-20.0)
[2025-01-06 09:48] LABS: Vitamin D 25 Total 56 ng/mL (30-100)
[2025-01-09 17:52] LABS: Thiamine (Vitamin B1), WB 168 nmol/L (70-180)
== END 2025-01-06 09:13 | disposition home or self-care (01) ==
LOC: LBO 09:13
PROVIDERS: PCP Nurse Practitioner Adult Health; Visit Provider Nurse Practitioner Family
DX: Z98.84 Bariatric surgery status (principal); E83.50 Unspecified disorder of calcium metabolism; E83.10 Disorder of iron metabolism, unspecified; K90.89 Other intestinal malabsorption
CPT/HCPCS: 36415; 80053; 82306; 85027; 82607; 82728; 82746; 83540; 83550; 83970; 84425

== ENCOUNTER 2025-01-14 15:18 | Outpatient (CLI) | payer OTHER, SELFPAY ==
[2025-01-14 10:12] LABS: Anion Gap 4.4 mmol/L (3-11); BUN 15 mg/dL (7-18); CO2 32.6 mmol/L (21.0-32.0); Calcium 9.4 mg/dL (8.5-10.1); Chloride 104 mmol/L (98-107); Estimated GFR 97.10 (mL/min/1.73m2); Glucose 108 mg/dL (74-106); Magnesium 2.1 mg/dL (1.8-2.4); Potassium 4.3 mmol/L (3.5-5.1); Sodium 141 mmol/L (136-145)
== END 2025-01-14 15:19 | disposition home or self-care (01) ==
LOC: LBO 15:18
PROVIDERS: PCP Nurse Practitioner Adult Health; Visit Provider Surgery
DX: E87.0 Hyperosmolality and hypernatremia (principal)
CPT/HCPCS: 36415; 80048; 83735; 83930; 84100